=== PATIENT | female | born 1950 | race Caucasian/White ===

== ENCOUNTER 2017-06-23 07:17 | Day surgery (SDC) | payer MEDICARE ==
[2017-06-20 16:16] VITALS: BMI 56.7
[~2017-06-23 07:17] MED LIST: LACTATED RINGERS 1,000 ML IV SCH
[2017-06-23] MEDS ORDERED: LIDOCAINE 1% 20 ML VIAL (10MG/ML) FOR IV START INTRADERMA ONE (07:36)
[2017-06-23 07:51] VITALS: RESP 16; TEMP 96.9
[2017-06-23 07:54] LABS: Glucose,Whole Blood 87 mg/dL (75-99)
[2017-06-23] MEDS ORDERED: PROPOFOL 10 MG/ML 20 ML VIAL IV ONE (08:06)
[2017-06-23] MEDS ORDERED: LIDOCAINE 1% INJ 10MG/ML (20 ML MDV) ONE (08:06)
--- NOTE | 2017-06-23 08:34 | P.PCN ---
Date of Procedure: 06/23/17 Preoperative Diagnosis: Postoperative Diagnosis: Procedure(s) Performed: BRIEF HISTORY: Patient is a 67-year-old pleasant white female, scheduled for an elective colonoscopy as a part of evaluation of positive cologard testing recently and hence he scheduled for colonoscopy today. PROCEDURE PERFORMED: Colonoscopy with snare polypectomy. PREOPERATIVE DIAGNOSIS: Positive [place] guard testing. IV sedation per Anesthesia. PROCEDURE: After informed consent was obtained, the patient, was brought into the endoscopy unit. IV sedation was administered by Anesthesia under continuous monitoring. Digital rectal examination was normal. Initially the Olympus CF- 160 flexible video colonoscope was then inserted in the rectum, gradually advanced into the cecum with [id number] difficulty. Careful examination was performed as the scope was gradually being withdrawn. Ileocecal valve and the appendiceal orifice were visualized and appeared normal. Prep was excellent. In the base of the cecum there were 2 polyps measuring 5 mm and 1 m in size both of which were removed by snare polypectomy. Mucosa of the cecum, ascending colon, transverse colon, descending colon, sigmoid colon, appeared normal. In the rectosigmoid colon at 20 cm from the anal was there was a 2.5 cm pedunculated polyp that was removed by snare polypectomy. The rectum appeared normal. Retroflexion was performed in the rectum and no lesions were seen. The patient tolerated the procedure well. IMPRESSION: 5 mm and 1 m cecal polyp status post polypectomy 2.5 cm pedunculated recto sigmoid polyp status post snare polypectomy RECOMMENDATIONS: Findings of this examination were discussed with the patient as well as her family. She was advised to follow with the biopsy results. If the biopsy shows a tubular adenoma she can have a repeat colonoscopy in 3 years. Implants: Indications for Procedure: Operative Findings: Description of Procedure:
[2017-06-23 08:43] LABS: Glucose,Whole Blood 88 mg/dL (75-99)
[2017-06-23 09:01] VITALS: BP 137/77; PULSE 99
== END 2017-06-23 09:16 | disposition home or self-care (01) ==
LOC: ORWHC2ENDO 07:17
PROVIDERS: ATTEND Internal Medicine Gastroenterology
DX: D12.0 Benign neoplasm of cecum (principal); D12.7 Benign neoplasm of rectosigmoid junction; R19.5 Other fecal abnormalities; I10 Essential (primary) hypertension; I25.10 Atherosclerotic heart disease of native coronary artery without angina pectoris; F41.9 Anxiety disorder, unspecified; Z98.84 Bariatric surgery status; E66.01 Morbid (severe) obesity due to excess calories; Z79.82 Long term (current) use of aspirin; Z79.4 Long term (current) use of insulin; Z79.899 Other long term (current) drug therapy; Z87.891 Personal history of nicotine dependence
CPT/HCPCS: 88305; 45385; J2001; J2704

== ENCOUNTER 2019-07-25 14:06 | Inpatient (IN) | payer MEDICARE, OTHER ==
--- NOTE | 2019-07-25 14:51 | ED ---
Extremity Problem HPI - General Chief complaint: Extremity Problem,Nontraumatic Stated complaint: Leg swelling Time Seen by Provider: 07/25/19 14:12 Source: patient, EMS, RN notes reviewed, old records reviewed Mode of arrival: EMS Limitations: no limitations - History of Present Illness Initial comments: This is a 69-year-old female the ER for evaluation. Patient has a for evaluation of left lower Shorty pain swelling redness and erythema and warmth. Patient noticed only symptoms today. She denies shortness of breath low she states she does have some level shortness of breath especially with him. No chest pain. Patient is not on blood thinners that she knows of. No prior history of significant lower extremity cellulitis or DVT. She states she has had swelling of her lower extremity isn't does have consistent swelling of her lower extremity and a regular basis MD Complaint: extremity pain, extremity swelling, other (Lower extremity swelling erythema and pain) -: days(s) Location: left, lower extremity History of Same: No Radiation: proximal, distal Severity scale (1-10): 3 Quality: aching Consistency: constant Improves with: nothing Worsens with: nothing Associated Symptoms: denies other symptoms - Related Data Home Medications Medication Instructions Recorded Confirmed Aspirin [Adult Low Dose Aspirin EC] 81 mg PO DAILY 06/20/17 07/25/19 Ezetimibe [Zetia] 10 mg PO QAM 06/20/17 07/25/19 Insulin Regular, Human [humulin R 0 - 10 unit SQ HS PRN 06/20/17 07/25/19 U-500 Kwikpen] Insulin Regular, Human [humulin R 25 unit SQ QAM 06/20/17 07/25/19 U-500 Kwikpen] Losartan Potassium [Cozaar] 100 mg PO QAM 06/20/17 07/25/19 Medroxyprogesterone Acetate 2.5 mg PO QAM 06/20/17 07/25/19 [Provera] Metoprolol Succinate (ER) [Toprol 50 mg PO QAM 06/20/17 07/25/19 Xl] Rosuvastatin Calcium [Crestor] 40 mg PO QAM 06/20/17 07/25/19 Sertraline HCl [Zoloft] 50 mg PO HS 06/20/17 07/25/19 amLODIPine [Norvasc] 10 mg PO QAM 06/20/17 07/25/19 Allergies Allergy/AdvReac Type Severity Reaction Status Date / Time No Known Allergies Allergy Verified 07/25/19 14:51 Review of Systems ROS Statement: Those systems with pertinent positive or pertinent negative responses have been documented in the HPI. ROS Other: All systems not noted in ROS Statement are negative. Past Medical History Past Medical History: Chest Pain / Angina, Diabetes Mellitus, Hypertension Additional Past Medical History / Comment(s): HEMORRHOID, POSITIVE TEST FOR BLOOD IN STOOL., STATES DIFFICULTY WALKING DISTANCE, BACK PAIN. History of Any Multi-Drug Resistant Organisms: None Reported Past Surgical History: Bariatric Surgery, Heart Catheterization, Tonsillectomy Additional Past Surgical History / Comment(s): LAP BAND INSERTED AND REMOVED (SEPTIC), D & C'S, EXCESS SKIN ON ABDOMEN REMOVED -? PANNICULECTOMY. Past Anesthesia/Blood Transfusion Reactions: No Reported Reaction Past Psychological History: Anxiety Smoking Status: Former smoker Past Alcohol Use History: None Reported Past Drug Use History: None Reported - Past Family History Mother Family Medical History: No Reported History General Exam Limitations: no limitations General appearance: alert, in no apparent distress Head exam: Present: atraumatic, normocephalic, normal inspection Eye exam: Present: normal appearance, EOMI. Absent: scleral icterus, conjunctival injection, periorbital swelling ENT exam: Present: normal exam, mucous membranes moist Neck exam: Present: normal inspection. Absent: tenderness, meningismus, lymphadenopathy Respiratory exam: Present: normal lung sounds bilaterally. Absent: respiratory distress, wheezes, rales, rhonchi, stridor Cardiovascular Exam: Present: regular rate, normal rhythm, normal heart sounds. Absent: systolic murmur, diastolic murmur, rubs, gallop, clicks GI/Abdominal exam: Present: soft, normal bowel sounds. Absent: distended, tenderness, guarding, rebound, rigid Extremities exam: Present: normal inspection, full ROM, normal capillary refill, other (Left lower extremity shows significant swelling, erythema warmth and tenderness especially to the cath). Absent: tenderness, pedal edema, joint swelling, calf tenderness Back exam: Present: normal inspection Neurological exam: Present: alert, oriented X3, CN II-XII intact Psychiatric exam: Present: normal affect, normal mood Skin exam: Present: warm, dry, intact, normal color. Absent: rash Course Vital Signs 07/25/19 14:12 Temperature 98.2 F Pulse Rate 101 H Respiratory 18 Rate Blood Pressure 157/78 O2 Sat by Pulse 97 Oximetry - Reevaluation(s) Reevaluation #1: 07/25/19 14:51 Medical records reviewed Reevaluation #2: 07/25/19 16:22 Patient's symptoms are relatively unchanged - Consultations Consultation #1: Spoke with Dr. Llanes who is agreeable for admission Medical Decision Making - Medical Decision Making 89 female the ER for evasive left lower Shorty pain and swelling. Patient has leg cellulitis left lower extremity sialitis that leg white count of 18, will admit for IV antibiotics - Lab Data Result diagrams: 07/25/19 13:05 07/25/19 13:05 Lab Results 07/25/19 07/25/19 07/25/19 Range/Units 13:05 13:05 13:05 WBC 18.2 H (3.8-10.6) k/uL RBC 4.35 (3.80-5.40) m/uL Hgb 13.4 (11.4-16.0) gm/dL Hct 39.4 (34.0-46.0) % MCV 90.4 (80.0-100.0) fL MCH 30.7 (25.0-35.0) pg MCHC 34.0 (31.0-37.0) g/dL RDW 13.8 (11.5-15.5) % Plt Count 191 (150-450) k/uL Neutrophils % 94 % Lymphocytes % 2 % Monocytes % 2 % Eosinophils % 0 % Basophils % 0 % Neutrophils # 17.2 H (1.3-7.7) k/uL Lymphocytes # 0.4 L (1.0-4.8) k/uL Monocytes # 0.4 (0-1.0) k/uL Eosinophils # 0.1 (0-0.7) k/uL Basophils # 0.0 (0-0.2) k/uL PT 11.3 (9.0-12.0) sec INR 1.1 (<1.2) APTT 30.7 H (22.0-30.0) sec D-Dimer 1.45 H (<0.60) mg/L FEU Sodium 135 L (137-145) mmol/L Potassium 3.9 (3.5-5.1) mmol/L Chloride 102 (98-107) mmol/L Carbon Dioxide 22 (22-30) mmol/L Anion Gap 11 mmol/L BUN 24 H (7-17) mg/dL Creatinine 1.16 H (0.52-1.04) mg/dL Est GFR (CKD-EPI)AfAm 56 (>60 ml/min/1.73 sqM) Est GFR (CKD-EPI)NonAf 48 (>60 ml/min/1.73 sqM) Glucose 374 H (74-99) mg/dL Calcium 9.3 (8.4-10.2) mg/dL Magnesium 1.8 (1.6-2.3) mg/dL Total Bilirubin 1.3 (0.2-1.3) mg/dL AST 44 H (14-36) U/L ALT 32 (9-52) U/L Alkaline Phosphatase 76 (38-126) U/L Troponin I (0.000-0.034) ng/mL NT-Pro-B Natriuret Pep pg/mL Total Protein 6.1 L (6.3-8.2) g/dL Albumin 3.1 L (3.5-5.0) g/dL 07/25/19 07/25/19 Range/Units 13:05 13:05 WBC (3.8-10.6) k/uL RBC (3.80-5.40) m/uL Hgb (11.4-16.0) gm/dL Hct (34.0-46.0) % MCV (80.0-100.0) fL MCH (25.0-35.0) pg MCHC (31.0-37.0) g/dL RDW (11.5-15.5) % Plt Count (150-450) k/uL Neutrophils % % Lymphocytes % % Monocytes % % Eosinophils % % Basophils % % Neutrophils # (1.3-7.7) k/uL Lymphocytes # (1.0-4.8) k/uL Monocytes # (0-1.0) k/uL Eosinophils # (0-0.7) k/uL Basophils # (0-0.2) k/uL PT (9.0-12.0) sec INR (<1.2) APTT (22.0-30.0) sec D-Dimer (<0.60) mg/L FEU Sodium (137-145) mmol/L Potassium (3.5-5.1) mmol/L Chloride (98-107) mmol/L Carbon Dioxide (22-30) mmol/L Anion Gap mmol/L BUN (7-17) mg/dL Creatinine (0.52-1.04) mg/dL Est GFR (CKD-EPI)AfAm (>60 ml/min/1.73 sqM) Est GFR (CKD-EPI)NonAf (>60 ml/min/1.73 sqM) Glucose (74-99) mg/dL Calcium (8.4-10.2) mg/dL Magnesium (1.6-2.3) mg/dL Total Bilirubin (0.2-1.3) mg/dL AST (14-36) U/L ALT (9-52) U/L Alkaline Phosphatase (38-126) U/L Troponin I 0.033 (0.000-0.034) ng/mL NT-Pro-B Natriuret Pep 933 pg/mL Total Protein (6.3-8.2) g/dL Albumin (3.5-5.0) g/dL - EKG Data -: EKG Interpreted by Me (EKG shows sinus rhythm rate of 90, MS 136, QRS 110, QTc 472) - Radiology Data Radiology results: report reviewed (S x-ray negative for CHF of lower extremity ultrasound negative for DVT), image reviewed Disposition Clinical Impression: Left leg cellulitis Disposition: ADMITTED IP TO THIS HOSP Condition: Fair Is patient prescribed a controlled substance at d/c from ED?: No Referrals: Gregoria Llanes MD [Primary Care Provider] - 1-2 days
[2019-07-25 15:02] LABS: Basophils % (A) 0 %; Eosinophils # (A) 0.1 k/uL (0-0.7); Eosinophils % (A) 0 %; HCT 39.4 % (34.0-46.0); HGB 13.4 gm/dL (11.4-16.0); Lymphocytes # (A) 0.4 k/uL (1.0-4.8); Lymphocytes % (A) 2 %; MCH 30.7 pg (25.0-35.0); MCV 90.4 fL (80.0-100.0); Mean Platelet Volume 6.7; Monocytes # (A) 0.4 k/uL (0-1.0); Monocytes % (A) 2 %; Neutrophils # (A) 17.2 k/uL (1.3-7.7); Neutrophils % (A) 94 %; Platelet Count 191 k/uL (150-450); RBC 4.35 m/uL (3.80-5.40); RDW 13.8 % (11.5-15.5); WBC 18.2 k/uL (3.8-10.6)
[2019-07-25 15:13] LABS: INR 1.1 (<1.2); Partial Thromboplastin Time 30.7 sec (22.0-30.0); Prothrombin Time 11.3 sec (9.0-12.0)
[2019-07-25 15:16] LABS: Albumin 3.1 g/dL (3.5-5.0); Calcium 9.3 mg/dL (8.4-10.2); Magnesium 1.8 mg/dL (1.6-2.3); Potassium 3.9 mmol/L (3.5-5.1); Total Bilirubin 1.3 mg/dL (0.2-1.3); Total Protein 6.1 g/dL (6.3-8.2)
[2019-07-25 15:21] LABS: D-Dimer 1.45 mg/L FEU (<0.60)
--- NOTE | 2019-07-25 16:02 | XR ---
EXAMINATION TYPE: XR chest 2V DATE OF EXAM: 07/25/2019 COMPARISON: 10/27/2010 INDICATION: Difficulty breathing TECHNIQUE: Frontal and lateral views of the chest are obtained. FINDINGS: The heart size is normal. The pulmonary vasculature is normal. The lungs are clear. IMPRESSION: 1. No acute pulmonary process.
--- NOTE | 2019-07-25 16:04 | US ---
EXAMINATION TYPE: US venous doppler duplex LE LT DATE OF EXAM: 07/25/2019 3:48 PM COMPARISON: NONE CLINICAL HISTORY: pain. swollen, red lower left leg on morbidly obese patient, no h/o dvt SIDE PERFORMED: Left TECHNIQUE: The lower extremity deep venous system is examined utilizing real time linear array sonog afsaneh with graded compression, doppler sonography and color-flow sonography. VESSELS IMAGED: External Iliac Vein (EIV) Common Femoral Vein Deep Femoral Vein Greater Saphenous Vein * Femoral Vein Popliteal Vein Small Saphenous Vein * Proximal Calf Veins (* superficial vessels) large body habitus and very edematous tissue limits viewing of vessels within left groin Left Leg: very limited views of veins within left leg appear negative for DVT, vein visualized were mid and distal femoral vein as well as popiteal vein IMPRESSION: 1. Left lower extremity ultrasound negative for deep venous thrombosis. 2. Examination limited due to patient body habitus
[2019-07-25] MEDS ORDERED: VANCOMYCIN IV PER PHARMACY 1 EACH MISC MISCELLANE PRN (16:21)
[2019-07-25] MEDS ORDERED: VANCOMYCIN 2,000 MG in SODIUM CHLORIDE 0.9% 500 ML 500 ML IVPB ONE (17:00)
[2019-07-25] MEDS: MORPHINE SULFATE 4 MG/ML SYRINGE IVP PRN (17:07)
--- NOTE | 2019-07-25 18:06 | CT ---
EXAMINATION TYPE: CT angio chest DATE OF EXAM: 07/25/2019 5:47 PM COMPARISON: Elevated d-dimer. HISTORY: Elevated d-dimer. Lower extremity swelling. CT DLP: 901.6 mGycm Automated exposure control for dose reduction was used. CONTRAST: CTA scan of the thorax is performed with IV Contrast, patient injected with 80 mL of Isovue 300, pulm onary embolism protocol. . There are 3-D post processed images. FINDINGS: There is mild subsegmental atelectasis at the lung bases. There is no pulmonary mass. There is no ple ural effusion. Heart appears slightly enlarged. There is no pericardial effusion. There are no hilar masses. There is no mediastinal adenopathy. Thoracic aorta is intact without evide nce of aneurysm or dissection. There is normal contrast opacification of the pulmonary arteries. I see no filling defects. The bony thorax is intact. There is spurring in the thoracic spine. IMPRESSION: NO EVIDENCE OF PULMONARY EMBOLISM. MILD SUBSEGMENTAL ATELECTASIS AT THE LUNG BASES.
[2019-07-25 18:18] LABS: Glucose,Whole Blood 364 mg/dL (75-99)
[2019-07-25] MEDS: INSULIN ASPART (NovoLOG) 100 UNIT/ML VIAL SQ SCH ×2 (18:26→20:56)
[2019-07-25 20:34] LABS: Glucose,Whole Blood 362 mg/dL (75-99)
[2019-07-25] MEDS: SERTRALINE 50 MG TAB PO SCH (20:53)
--- NOTE | 2019-07-25 22:54 | HP ---
HISTORY AND PHYSICAL CHIEF COMPLAINT: This is a 69-year-old white female who came to the emergency room with severe lower extremity pain, swelling, redness, erythema and warmth of the left leg over the past 1- 2 days. Ultrasound in the ER was negative for DVT. Positive D-dimer. CT scan of the chest was negative for PE. History of congestive heart failure. No bites or skin wounds seen on the left leg per patient. No cuts. She is diabetic, though. Sugars are coming in. Her sugars in the 300s. History of congestive heart failure. HOME MEDICATIONS: 1. Norvasc 10 mg daily. 2. Zoloft 50 daily. 3. Crestor 40 daily. 4. Metoprolol succinate 50 mg daily. 5. Provera 2.5 each morning. 6. Cozaar 100 mg each morning. 7. Aspirin 81 mg daily. 8. Humulin R U-500 KwikPen 0 to 10 units at night and, depending on her sugar level, 25 units in the morning. ALLERGIES: NO KNOWN DRUG ALLERGIES. PAST MEDICAL HISTORY: Some anxiety. Former smoker. FAMILY HISTORY: Mother unclear. PHYSICAL EXAMINATION: Vital signs stable. Afebrile. BMI is over 40. She has lymphedema-type changes in the lower extremities with significant redness and swelling in the left lower leg. CARDIOVASCULAR: S1, S2. LUNGS: Transmitted upper airway sounds. VASCULAR: Normal dorsalis, posterior tibial, radial pulse. PSYCH: Fair mood and affect. NEUROLOGIC: Alert and oriented x3. Lungs show mild wheeze. ASSESSMENT: 1. Left leg cellulitis, significant. Started on IV cefazolin, wound care, localized antibiotics. 2. Elevated white count secondary to leukocytosis. 3. Prerenal renal insufficiency. 4. Congestive heart failure. 5. Insulin-dependent diabetes mellitus. Continue current treatment. Possible discharge home once leg cellulitis improves. Infectious disease consult. MMODL / IJN: [id number] /
[2019-07-26 06:03] LABS: Basophils # (A) 0.1 k/uL (0-0.2); Basophils % (A) 1 %; Eosinophils # (A) 0.1 k/uL (0-0.7); Eosinophils % (A) 1 %; HCT 37.2 % (34.0-46.0); HGB 12.6 gm/dL (11.4-16.0); Lymphocytes # (A) 0.5 k/uL (1.0-4.8); Lymphocytes % (A) 3 %; MCH 31.3 pg (25.0-35.0); MCHC 33.9 g/dL (31.0-37.0); MCV 92.2 fL (80.0-100.0); Mean Platelet Volume 8.1; Monocytes # (A) 0.7 k/uL (0-1.0); Monocytes % (A) 4 %; Neutrophils # (A) 14.5 k/uL (1.3-7.7); Neutrophils % (A) 90 %; Platelet Count 189 k/uL (150-450); RBC 4.04 m/uL (3.80-5.40); RDW 14.1 % (11.5-15.5); WBC 16.1 k/uL (3.8-10.6)
[2019-07-26 06:13] LABS: Albumin 2.8 g/dL (3.5-5.0); Calcium 9.1 mg/dL (8.4-10.2); Potassium 3.9 mmol/L (3.5-5.1); Total Bilirubin 0.8 mg/dL (0.2-1.3); Total Protein 5.7 g/dL (6.3-8.2)
[2019-07-26 07:07] LABS: Glucose,Whole Blood 261 mg/dL (75-99)
[2019-07-26] MEDS: ASPIRIN 81 MG PO SCH (08:01)
[2019-07-26] MEDS: METOPROLOL SUCCINATE (ER) 50 MG TAB.ER.24H PO SCH (08:01)
[2019-07-26] MEDS: ENOXAPARIN 40 MG/0.4 ML SYRINGE SQ SCH (08:01)
[2019-07-26] MEDS: LOSARTAN 50 MG TAB PO SCH (08:01)
[2019-07-26] MEDS: amLODIPine 10 MG TAB PO SCH (08:01)
[2019-07-26] MEDS: ATORVASTATIN 80 MG TAB PO SCH (08:01)
[2019-07-26] MEDS: INSULIN ASPART (NovoLOG) 100 UNIT/ML VIAL SQ SCH ×4 (08:02→21:16)
[2019-07-26] MEDS: EZETIMIBE 10 MG TAB PO SCH (08:02)
[2019-07-26] MEDS: INSULIN REGULAR 100 UNIT/ML VIAL SQ SCH (08:03)
[2019-07-26 11:56] LABS: Glucose,Whole Blood 288 mg/dL (75-99)
[2019-07-26] MEDS ORDERED: VANCOMYCIN 2,000 MG in SODIUM CHLORIDE 0.9% 500 ML 500 ML IVPB SCH (12:00)
[2019-07-26 14:16] LABS: Hemoglobin A1C 6.6 % (4.0-6.0)
--- NOTE | 2019-07-26 15:48 | P.CONS ---
History of Present Illness - Reason for Consult Consult date: 07/26/19 Left leg cellulitis Requesting physician: Azeem Llanes - Chief Complaint Left leg pain swelling and redness 2 days - History of Present Illness Patient is 69-year-old female presenting to the ER at [facility] yesterday with a chief complaints of left leg pain swelling redness that has been going on for 2 days before the patient presented to the hospital the patient did have diffuse swelling and redness to the left lower extremity, patient describing the pain to be sharp at times dull aching with intensity of almost 7-8 out of 10 and no radiation the patient did have a diffuse redness but no blister or any open wound with the symptom and the patient was evaluated by the ER physician, on route to the ER the patient was afebrile however she did have elevated white count of 18,000 the patient did have lower extremity Doppler was negative for DVT she also have a CT angiographic there was negative for PE patient has been diagnosed with left lower extremity cellulitis the patient was started on vancomycin and Rocephin and infectious disease was consulted for further recommendation regarding antibiotic therapy Review of Systems Positive point has been mentioned in the HPI rest of the systems are negative Past Medical History Past Medical History: Chest Pain / Angina, Diabetes Mellitus, Hypertension Additional Past Medical History / Comment(s): HEMORRHOID, POSITIVE TEST FOR BLOOD IN STOOL., STATES DIFFICULTY WALKING DISTANCE, BACK PAIN. History of Any Multi-Drug Resistant Organisms: None Reported Past Surgical History: Bariatric Surgery, Heart Catheterization, Tonsillectomy Additional Past Surgical History / Comment(s): LAP BAND INSERTED AND REMOVED (SEPTIC), D & C'S, EXCESS SKIN ON ABDOMEN REMOVED -? PANNICULECTOMY. Past Anesthesia/Blood Transfusion Reactions: No Reported Reaction Past Psychological History: Anxiety Smoking Status: Former smoker Past Alcohol Use History: None Reported Additional Past Alcohol Use History / Comment(s): SMOKED 2 YEARS IN EARLY 20S Past Drug Use History: None Reported - Past Family History Mother Family Medical History: No Reported History Medications and Allergies Home Medications Medication Instructions Recorded Confirmed Type Aspirin [Adult Low Dose Aspirin EC] 81 mg PO DAILY 06/20/17 07/25/19 History Ezetimibe [Zetia] 10 mg PO QAM 06/20/17 07/25/19 History Insulin Regular, Human [humulin R 0 - 10 unit SQ HS PRN 06/20/17 07/25/19 History U-500 Kwikpen] Insulin Regular, Human [humulin R 25 unit SQ QAM 06/20/17 07/25/19 History U-500 Kwikpen] Losartan Potassium [Cozaar] 100 mg PO QAM 06/20/17 07/25/19 History Medroxyprogesterone Acetate 2.5 mg PO QAM 06/20/17 07/25/19 History [Provera] Metoprolol Succinate (ER) [Toprol 50 mg PO QAM 06/20/17 07/25/19 History Xl] Rosuvastatin Calcium [Crestor] 40 mg PO QAM 06/20/17 07/25/19 History Sertraline HCl [Zoloft] 50 mg PO HS 06/20/17 07/25/19 History amLODIPine [Norvasc] 10 mg PO QAM 06/20/17 07/25/19 History Allergies Allergy/AdvReac Type Severity Reaction Status Date / Time No Known Allergies Allergy Verified 07/25/19 14:51 Physical Exam Vitals: Vital Signs Temp Pulse Pulse Resp BP BP Pulse Ox 07/26/19 07:10 98.2 F 92 18 116/68 91 L 07/25/19 21:00 98.5 F 98 20 137/66 92 L 07/25/19 18:00 98.1 F 108 H 20 149/76 94 L 07/25/19 14:12 98.2 F 101 H 18 157/78 97 Intake and Output 07/25/19 07/26/19 07/26/19 22:59 06:59 14:59 Intake Total 400 250 Balance 400 250 Intake: Oral 400 250 Other: Voiding Method Bedpan # Voids 2 1 GENERAL DESCRIPTION: An elderly female lying in bed, no distress. No tachypnea or accessory muscle of respiration use. HEENT: Shows Pallor , no scleral icterus. Oral mucous membrane is dry. No pharyngeal erythema or thrush NECK: Trachea central, no thyromegaly. LUNGS: Unlabored breathing. Clear to auscultation anteriorly. No wheeze or crack le. HEART: S1, S2, regular rate and rhythm. No loud murmur ABDOMEN: Soft, no tenderness , guarding or rigidity, no organomegaly EXTREMITIES: Left leg with diffuse swelling redness is warm and tender to touch no blistering open wound or any drainage SKIN: No rash, no masses palpable. NEUROLOGICAL: The patient is awake, alert, oriented x3, mood and affect normal. Results CBC & Chem 7: 07/26/19 05:24 07/26/19 05:24 Labs: Abnormal Lab Results - Last 24 Hours (Table) 07/25/19 07/25/19 07/25/19 Range/Units 13:05 13:05 13:05 WBC 18.2 H (3.8-10.6) k/uL Neutrophils # 17.2 H (1.3-7.7) k/uL Lymphocytes # 0.4 L (1.0-4.8) k/uL APTT 30.7 H (22.0-30.0) sec D-Dimer 1.45 H (<0.60) mg/L FEU Sodium 135 L (137-145) mmol/L BUN 24 H (7-17) mg/dL Creatinine 1.16 H (0.52-1.04) mg/dL Glucose 374 H (74-99) mg/dL POC Glucose (mg/dL) (75-99) mg/dL AST 44 H (14-36) U/L Total Protein 6.1 L (6.3-8.2) g/dL Albumin 3.1 L (3.5-5.0) g/dL 07/25/19 07/25/19 07/26/19 Range/Units 18:16 20:30 05:24 WBC 16.1 H (3.8-10.6) k/uL Neutrophils # 14.5 H (1.3-7.7) k/uL Lymphocytes # 0.5 L (1.0-4.8) k/uL APTT (22.0-30.0) sec D-Dimer (<0.60) mg/L FEU Sodium (137-145) mmol/L BUN (7-17) mg/dL Creatinine (0.52-1.04) mg/dL Glucose (74-99) mg/dL POC Glucose (mg/dL) 364 H 362 H (75-99) mg/dL AST (14-36) U/L Total Protein (6.3-8.2) g/dL Albumin (3.5-5.0) g/dL 0907/26/19 07/26/19 Range/Units 05:24 07:04 11:51 WBC (3.8-10.6) k/uL Neutrophils # (1.3-7.7) k/uL Lymphocytes # (1.0-4.8) k/uL APTT (22.0-30.0) sec D-Dimer (<0.60) mg/L FEU Sodium 135 L (137-145) mmol/L BUN 27 H (7-17) mg/dL Creatinine 1.30 H (0.52-1.04) mg/dL Glucose 270 H (74-99) mg/dL POC Glucose (mg/dL) 261 H 288 H (75-99) mg/dL AST 41 H (14-36) U/L Total Protein 5.7 L (6.3-8.2) g/dL Albumin 2.8 L (3.5-5.0) g/dL Assessment and Plan Assessment: 1-patient admitted hospital with acute left lower extremity cellulitis in this patient did have diffuse swelling redness likely representing streptococcal disease clinically doubt MRSA or gram-negative infection (1) Left leg cellulitis Current Visit: Yes Status: Acute Code(s): L03.116 - CELLULITIS OF LEFT LOWER LIMB SNOMED Code(s): 173171916 Plan: 1-discontinue the vancomycin and Rocephin 2-marked the area of the redness 3-cefazolin 2 g every 8 hours 4-Jose wrap from just above the toe to below the knee We will follow on clinical condition and cultures to further adjust medication if needed Thank you for this consultation will follow this patient with you Time with Patient: Greater than 30
[2019-07-26 17:08] LABS: Glucose,Whole Blood 216 mg/dL (75-99)
[2019-07-26] MEDS: MORPHINE SULFATE 4 MG/ML SYRINGE IVP PRN (19:27)
[2019-07-26 20:20] LABS: Glucose,Whole Blood 287 mg/dL (75-99)
[2019-07-26] MEDS: SERTRALINE 50 MG TAB PO SCH (21:16)
--- NOTE | 2019-07-26 22:52 | PN ---
PROGRESS NOTE SUBJECTIVE: This is a 69-year-old white female with cellulitis of the leg, admitted with IV antibiotics. Continues to improve from a clinical standpoint. No chest pain or shortness of breath. No lightheadedness, dizziness, syncope. CARDIOVASCULAR: S1, S2. LUNGS: Clear. LYMPHATIC: Changes with the redness decreasing on the right lower leg. ASSESSMENT: Left leg cellulitis. Cefazolin 2 grams q.8 hours. Continue with Jose wrap from the toe to the knee. Continue to follow clinical condition and blood cultures. MMODL / IJN: [id number] /
[2019-07-27] MEDS ORDERED: IPRATROPIUM-ALBUTEROL 3 ML NEB INHALATION STA (00:39)
[2019-07-27] MEDS ORDERED: FUROSEMIDE 10 MG/ML 4 ML VIAL IV STA (00:39)
[2019-07-27 06:47] LABS: Glucose,Whole Blood 223 mg/dL (75-99)
[2019-07-27 06:54] LABS: Basophils % (A) 0 %; Eosinophils # (A) 0.2 k/uL (0-0.7); Eosinophils % (A) 2 %; HCT 35.5 % (34.0-46.0); HGB 11.9 gm/dL (11.4-16.0); Lymphocytes # (A) 0.8 k/uL (1.0-4.8); Lymphocytes % (A) 5 %; MCH 30.4 pg (25.0-35.0); MCHC 33.6 g/dL (31.0-37.0); MCV 90.3 fL (80.0-100.0); Monocytes # (A) 0.5 k/uL (0-1.0); Monocytes % (A) 3 %; Neutrophils % (A) 89 %; Platelet Count 190 k/uL (150-450); RBC 3.93 m/uL (3.80-5.40); RDW 13.7 % (11.5-15.5); WBC 15.8 k/uL (3.8-10.6)
[2019-07-27 07:03] LABS: Albumin 2.6 g/dL (3.5-5.0); Calcium 8.9 mg/dL (8.4-10.2); Potassium 3.6 mmol/L (3.5-5.1); Total Bilirubin 0.7 mg/dL (0.2-1.3); Total Protein 5.5 g/dL (6.3-8.2)
[2019-07-27] MEDS: INSULIN ASPART (NovoLOG) 100 UNIT/ML VIAL SQ SCH ×6 (07:54→22:09)
[2019-07-27] MEDS: ASPIRIN 81 MG PO SCH (08:23)
[2019-07-27] MEDS: amLODIPine 10 MG TAB PO SCH (08:23)
[2019-07-27] MEDS: ENOXAPARIN 40 MG/0.4 ML SYRINGE SQ SCH (08:23)
[2019-07-27] MEDS: METOPROLOL SUCCINATE (ER) 50 MG TAB.ER.24H PO SCH (08:28)
[2019-07-27] MEDS: ATORVASTATIN 80 MG TAB PO SCH (08:28)
[2019-07-27] MEDS: INSULIN REGULAR 100 UNIT/ML VIAL SQ SCH (08:29)
[2019-07-27] MEDS: LOSARTAN 50 MG TAB PO SCH (08:29)
--- NOTE | 2019-07-27 09:21 | XR ---
EXAMINATION TYPE: XR chest 1V DATE OF EXAM: 07/27/2019 HISTORY: shortness of breath. REFERENCE: Previous study dated 07/25/2019. FINDINGS: The lungs remain clear. Pleural spaces are clear. Heart size is upper limits of normal in s ize. IMPRESSION: BORDERLINE CARDIOMEGALY.
[2019-07-27] MEDS: IPRATROPIUM-ALBUTEROL 3 ML NEB INHALATION SCH ×3 (10:41→19:57)
[2019-07-27] MEDS: EZETIMIBE 10 MG TAB PO SCH (10:54)
[2019-07-27] MEDS: methylPREDNISolone SOD SUCCI 40 MG/ML 1 ML VIAL IV SCH ×2 (10:54→16:02)
[2019-07-27] MEDS: AZITHROMYCIN 500 MG in SODIUM CHLORIDE 0.9% 250 ML IVPB SCH (10:57)
[2019-07-27 11:38] LABS: Glucose,Whole Blood 356 mg/dL (75-99)
--- NOTE | 2019-07-27 16:25 | PN ---
PROGRESS NOTE DATE OF SERVICE: 07/27/2019 REASON FOR FOLLOWUP: Left lower extremity cellulitis. INTERVAL HISTORY: The patient is currently afebrile. The patient has been breathing comfortably. She denies having any chest pain or any cough. Some swelling and redness to the left leg has improved. No diarrhea. PHYSICAL EXAMINATION: Blood pressure is 138/66, pulse 85, temperature 98.2. She is 95% on 2 L nasal cannula. General description is an elderly female lying in bed in no distress. RESPIRATORY SYSTEM: Unlabored breathing. Clear to auscultation anteriorly. HEART: S1, S2. Regular rate and rhythm. ABDOMEN: Soft. No tenderness. Left lower extremity swelling and redness minimally improved. LABS: Hemoglobin 11.1, white count 15.8. BUN of 26, creatinine 1.18. DIAGNOSTIC IMPRESSION AND PLAN: Patient with extensive left lower extremity cellulitis, some clinical improvement. White count is slightly down. To continue cefazolin 2 grams q.8 hours. Billy the area of the redness. Jose wrap to keep the swelling down. Continue with supportive care. MMODL / IJN: [id number] /
[2019-07-27 16:35] LABS: Glucose,Whole Blood 406 mg/dL (75-99)
[2019-07-27] MEDS ORDERED: INSULIN ASPART (NovoLOG) 100 UNIT/ML VIAL SQ ONE (17:04)
[2019-07-27 21:10] LABS: Glucose,Whole Blood 478 mg/dL (75-99)
[2019-07-27] MEDS: SERTRALINE 50 MG TAB PO SCH (22:08)
[2019-07-28] MEDS: methylPREDNISolone SOD SUCCI 40 MG/ML 1 ML VIAL IV SCH ×2 (00:29→07:45)
--- NOTE | 2019-07-28 00:50 | PN ---
PROGRESS NOTE SUBJECTIVE: 69-year-old white female who has worsening shortness of breath today despite the Lasix, steroids and updraft. Pulmonary consult is pending. Chest x-ray is negative. Cardiovascular S1, S2. Lungs scattered rhonchi and wheeze. Hematology: Negative Homans. Vascular: Normal dorsalis pedis, posterior tibial, radial pulse. ASSESSMENT: 1. Left lower leg extremity cellulitis. 2. Insulin-dependent diabetes mellitus. 3. Chronic obstructive pulmonary disease. 4. Tracheobronchitis. Continue current treatments. Possible discharge home soon. MMODL / IJN: [id number] /
[2019-07-28 07:08] LABS: Glucose,Whole Blood 409 mg/dL (75-99)
[2019-07-28] MEDS: INSULIN ASPART (NovoLOG) 100 UNIT/ML VIAL SQ SCH ×7 (07:40→21:02)
[2019-07-28] MEDS: ENOXAPARIN 40 MG/0.4 ML SYRINGE SQ SCH (07:51)
[2019-07-28] MEDS: amLODIPine 10 MG TAB PO SCH (07:51)
[2019-07-28] MEDS: LOSARTAN 50 MG TAB PO SCH (07:51)
[2019-07-28] MEDS: ASPIRIN 81 MG PO SCH (07:51)
[2019-07-28] MEDS: EZETIMIBE 10 MG TAB PO SCH (07:51)
[2019-07-28] MEDS: ATORVASTATIN 80 MG TAB PO SCH (07:51)
[2019-07-28] MEDS: INSULIN REGULAR 100 UNIT/ML VIAL SQ SCH (07:54)
[2019-07-28] MEDS: IPRATROPIUM-ALBUTEROL 3 ML NEB INHALATION SCH ×4 (08:44→19:50)
[2019-07-28] MEDS: AZITHROMYCIN 500 MG in SODIUM CHLORIDE 0.9% 250 ML IVPB SCH (09:25)
[2019-07-28] MEDS: METOPROLOL SUCCINATE (ER) 50 MG TAB.ER.24H PO SCH (09:29)
[2019-07-28] MEDS: MORPHINE SULFATE 4 MG/ML SYRINGE IVP PRN (11:27)
[2019-07-28 11:57] LABS: Glucose,Whole Blood 436 mg/dL (75-99)
[2019-07-28 17:35] LABS: Glucose,Whole Blood 437 mg/dL (75-99)
[2019-07-28] MEDS ORDERED: INSULIN REGULAR 100 UNIT/ML VIAL SQ ONE ×2 (17:43→20:56)
[2019-07-28] MEDS: SERTRALINE 50 MG TAB PO SCH (21:03)
[2019-07-29 06:55] LABS: Basophils % (A) 0 %; Eosinophils % (A) 0 %; HGB 12.1 gm/dL (11.4-16.0); Hypochromasia Slight; Lymphocytes # (A) 0.5 k/uL (1.0-4.8); Lymphocytes % (A) 3 %; MCH 30.2 pg (25.0-35.0); MCHC 32.8 g/dL (31.0-37.0); Mean Platelet Volume 7.1; Monocytes # (A) 0.7 k/uL (0-1.0); Monocytes % (A) 3 %; Neutrophils # (A) 18.8 k/uL (1.3-7.7); Neutrophils % (A) 93 %; Platelet Count 262 k/uL (150-450); RBC 4.02 m/uL (3.80-5.40); RDW 13.3 % (11.5-15.5); WBC 20.2 k/uL (3.8-10.6)
[2019-07-29 07:04] LABS: Calcium 9.3 mg/dL (8.4-10.2); Potassium 4.4 mmol/L (3.5-5.1)
[2019-07-29 07:32] LABS: Glucose,Whole Blood 405 mg/dL (75-99)
[2019-07-29] MEDS: INSULIN ASPART (NovoLOG) 100 UNIT/ML VIAL SQ SCH ×7 (07:35→20:43)
--- NOTE | 2019-07-29 07:55 | PN ---
PROGRESS NOTE DATE OF SERVICE: 07/28/2019 REASON FOR FOLLOWUP: Left lower extremity cellulitis. INTERVAL HISTORY: The patient is currently afebrile. The patient has been breathing comfortably. Denies having any chest pain or any cough. No nausea, no vomiting. No abdominal pain or any worsening pain to the left leg area. PHYSICAL EXAMINATION: Blood pressure 137/70 with a pulse of 77, temperature 97.6. She is 94% 2 L nasal cannula. General description is an elderly female, lying in bed in no distress. RESPIRATORY SYSTEM: Unlabored breathing, clear to auscultation anteriorly. HEART: S1, S2. Regular rate and rhythm. ABDOMEN: Soft, no tenders. EXTREMITIES: Left leg is currently wrapped up in the Jose wrap without any drainage on the dressing. LABS: No new labs been obtained today. Blood culture has been negative. DIAGNOSTIC IMPRESSION AND PLAN: Patient with acute left lower extremity cellulitis and the patient did have diffuse swelling redness, likely streptococcal disease. Recommend to keep the patient on IV cefazolin 2 g q.8 hours. Repeat CBC in the morning. Local care with an Jose wrap to keep the swelling down and re-evaluate the patient tomorrow. MMODL / IJN: [id number] /
[2019-07-29] MEDS: IPRATROPIUM-ALBUTEROL 3 ML NEB INHALATION SCH ×4 (08:20→20:36)
[2019-07-29] MEDS: AZITHROMYCIN 500 MG in SODIUM CHLORIDE 0.9% 250 ML IVPB SCH (08:49)
[2019-07-29] MEDS: ASPIRIN 81 MG PO SCH (08:50)
[2019-07-29] MEDS: ATORVASTATIN 80 MG TAB PO SCH (08:50)
[2019-07-29] MEDS: LOSARTAN 50 MG TAB PO SCH (08:50)
[2019-07-29] MEDS: METOPROLOL SUCCINATE (ER) 50 MG TAB.ER.24H PO SCH (08:50)
[2019-07-29] MEDS: ENOXAPARIN 40 MG/0.4 ML SYRINGE SQ SCH (08:51)
[2019-07-29] MEDS: amLODIPine 10 MG TAB PO SCH (08:51)
[2019-07-29] MEDS: INSULIN REGULAR 100 UNIT/ML VIAL SQ SCH (08:51)
[2019-07-29] MEDS: EZETIMIBE 10 MG TAB PO SCH (08:51)
[2019-07-29 09:21] LABS: Glucose,Whole Blood 439 mg/dL (75-99)
[2019-07-29 09:21] LABS: Glucose,Whole Blood 501 mg/dL (75-99)
[2019-07-29 09:21] LABS: Glucose,Whole Blood 427 mg/dL (75-99)
[2019-07-29 09:21] LABS: Glucose,Whole Blood 467 mg/dL (75-99)
[2019-07-29 11:56] LABS: Glucose,Whole Blood 382 mg/dL (75-99)
--- NOTE | 2019-07-29 14:33 | P.CNPUL ---
History of Present Illness Consult date: 07/29/19 Reason for consult: dyspnea, cough, hypoxemia, abnormal CXR/CT, obstructive sleep apnea Chief complaint: Shortness of breath and wheezing History of present illness: This is a 69-year-old female who was seen eval reexamined on medical floor admitted into the hospital left lower extremity DVT computed tomography scan of his chest shows some subsegmental atelectasis she has problem with intermittent wheezing cough and congestion for which she has been on oral antibiotics and as aged breathing treatment she feels better from respiratory standpoint extensive lower extremity left cellulitis is present she is being treated with IV cefazolin, review of the data revealed that left leg pain swelling redness that has been going on for 2 days before the patient presented to the hospital the patient did have diffuse swelling and redness to the left lower extremity, patient describing the pain to be sharp at times dull aching with intensity of almost 7-8 out of 10 and no radiation the patient did have a diffuse redness but no blister or any open wound with the symptom and the patient was evaluated by the ER physician, on route to the ER the patient was afebrile however she did have elevated white count of 18,000 the patient did have lower extremity Doppler was negative for DVT she also have a CT angiographic there was negative for PE she likely has obstructive sleep apnea has intermittent history of snoring to be evaluated further outpatient basis Review of Systems All systems: negative Past Medical History Past Medical History: Chest Pain / Angina, Diabetes Mellitus, Hypertension Additional Past Medical History / Comment(s): HEMORRHOID, POSITIVE TEST FOR BLOOD IN STOOL., STATES DIFFICULTY WALKING DISTANCE, BACK PAIN. History of Any Multi-Drug Resistant Organisms: None Reported Past Surgical History: Bariatric Surgery, Heart Catheterization, Tonsillectomy Additional Past Surgical History / Comment(s): LAP BAND INSERTED AND REMOVED (SEPTIC), D & C'S, EXCESS SKIN ON ABDOMEN REMOVED -? PANNICULECTOMY. Past Anesthesia/Blood Transfusion Reactions: No Reported Reaction Past Psychological History: Anxiety Smoking Status: Former smoker Past Alcohol Use History: None Reported Additional Past Alcohol Use History / Comment(s): SMOKED 2 YEARS IN EARLY 20S Past Drug Use History: None Reported - Past Family History Mother Family Medical History: No Reported History Medications and Allergies Home Medications Medication Instructions Recorded Confirmed Type Aspirin [Adult Low Dose Aspirin EC] 81 mg PO DAILY 06/20/17 07/25/19 History Ezetimibe [Zetia] 10 mg PO QAM 06/20/17 07/25/19 History Insulin Regular, Human [humulin R 0 - 10 unit SQ HS PRN 06/20/17 07/25/19 History U-500 Kwikpen] Insulin Regular, Human [humulin R 25 unit SQ QAM 06/20/17 07/25/19 History U-500 Kwikpen] Losartan Potassium [Cozaar] 100 mg PO QAM 06/20/17 07/25/19 History Medroxyprogesterone Acetate 2.5 mg PO QAM 06/20/17 07/25/19 History [Provera] Metoprolol Succinate (ER) [Toprol 50 mg PO QAM 06/20/17 07/25/19 History Xl] Rosuvastatin Calcium [Crestor] 40 mg PO QAM 06/20/17 07/25/19 History Sertraline HCl [Zoloft] 50 mg PO HS 06/20/17 07/25/19 History amLODIPine [Norvasc] 10 mg PO QAM 06/20/17 07/25/19 History Allergies Allergy/AdvReac Type Severity Reaction Status Date / Time No Known Allergies Allergy Verified 07/25/19 14:51 Physical Exam Vitals: Vital Signs Temp Pulse Pulse Resp BP BP Pulse Ox 07/29/19 11:14 90 07/29/19 11:01 88 07/29/19 07:00 97.9 F 77 14 122/70 94 L 07/29/19 01:50 97.8 F 91 18 148/82 95 07/28/19 20:01 80 07/28/19 19:51 78 07/28/19 19:39 97.6 F 77 16 107/70 94 L 07/28/19 16:39 93 L 07/28/19 16:07 78 07/28/19 15:52 80 07/28/19 14:59 97.8 F 80 20 107/62 Intake and Output 07/28/19 07/29/19 07/29/19 22:59 06:59 14:59 Intake Total 100 100 700 Output Total 350 750 Balance 100 -250 -50 Intake: Oral 100 100 700 Output: Urine 350 750 Other: Voiding Method Bedpan # Bowel Movements 0 - Constitutional General appearance: disheveled, morbidly obese, no acute distress - EENT Eyes: anicteric sclerae, EOMI, PERRLA, poor dentition, normal appearance ENT: normal oropharynx Ears: bilateral: normal - Neck Carotids: bilateral: upstroke normal Thyroid: bilateral: normal size - Respiratory Respiratory: bilateral: diminished, negative: dullness, rales, rhonchi, wheezing, prolonged expiration, prolonged inspiration - Cardiovascular Rhythm: regular Heart sounds: normal: S1, S2 - Gastrointestinal General gastrointestinal: normal bowel sounds - Integumentary Integumentary: normal, normal turgor - Neurologic Neurologic: CNII-XII intact - Musculoskeletal Musculoskeletal: gait normal, generalized weakness, strength equal bilaterally - Psychiatric Psychiatric: A&O x's 3, appropriate affect, intact judgment & insight Extensive erythema and edema and redness on left lower extremity up to mid calf level, less 1 edema chronic bilateral Results - Laboratory Findings CBC and BMP: 07/29/19 06:33 07/29/19 06:33 PT/INR, D-dimer PT 11.3 sec (9.0-12.0) 07/25/19 13:05 INR 1.1 (<1.2) 07/25/19 13:05 D-Dimer 1.45 mg/L FEU (<0.60) H 07/25/19 13:05 Abnormal lab findings: Abnormal Labs 07/25/19 07/25/19 07/25/19 13:05 13:05 13:05 WBC 18.2 H Neutrophils # 17.2 H Lymphocytes # 0.4 L APTT 30.7 H D-Dimer 1.45 H Sodium 135 L BUN 24 H Creatinine 1.16 H Glucose 374 H POC Glucose (mg/dL) Hemoglobin A1c AST 44 H Total Protein 6.1 L Albumin 3.1 L 07/25/19 07/25/19 07/26/19 18:16 20:30 05:24 WBC Neutrophils # Lymphocytes # APTT D-Dimer Sodium BUN Creatinine Glucose POC Glucose (mg/dL) 364 H 362 H Hemoglobin A1c 6.6 H AST Total Protein Albumin 07/26/19 07/26/19 07/26/19 05:24 05:24 07:04 WBC 16.1 H Neutrophils # 14.5 H Lymphocytes # 0.5 L APTT D-Dimer Sodium 135 L BUN 27 H Creatinine 1.30 H Glucose 270 H POC Glucose (mg/dL) 261 H Hemoglobin A1c AST 41 H Total Protein 5.7 L Albumin 2.8 L 07/26/19 07/26/19 07/26/19 11:51 17:04 20:18 WBC Neutrophils # Lymphocytes # APTT D-Dimer Sodium BUN Creatinine Glucose POC Glucose (mg/dL) 288 H 216 H 287 H Hemoglobin A1c AST Total Protein Albumin 07/27/19 07/27/19 07/27/19 06:30 06:30 06:45 WBC 15.8 H Neutrophils # 14.0 H Lymphocytes # 0.8 L APTT D-Dimer Sodium BUN 26 H Creatinine 1.18 H Glucose 234 H POC Glucose (mg/dL) 223 H Hemoglobin A1c AST 38 H Total Protein 5.5 L Albumin 2.6 L 07/27/19 07/27/19 07/27/19 11:36 16:29 20:59 WBC Neutrophils # Lymphocytes # APTT D-Dimer Sodium BUN Creatinine Glucose POC Glucose (mg/dL) 356 H 406 H 478 H Hemoglobin A1c AST Total Protein Albumin 07/28/19 07/28/19 07/28/19 06:56 11:53 16:58 WBC Neutrophils # Lymphocytes # APTT D-Dimer Sodium BUN Creatinine Glucose POC Glucose (mg/dL) 409 H 436 H 467 H Hemoglobin A1c AST Total Protein Albumin 07/28/19 07/28/19 07/28/19 17:00 17:33 20:44 WBC Neutrophils # Lymphocytes # APTT D-Dimer Sodium BUN Creatinine Glucose POC Glucose (mg/dL) 427 H 437 H 501 H Hemoglobin A1c AST Total Protein Albumin 07/28/19 07/29/19 07/29/19 20:50 06:33 06:33 WBC 20.2 H Neutrophils # 18.8 H Lymphocytes # 0.5 L APTT D-Dimer Sodium BUN 33 H Creatinine Glucose 427 H POC Glucose (mg/dL) 439 H Hemoglobin A1c AST Total Protein Albumin 07/29/19 07/29/19 07:30 11:50 WBC Neutrophils # Lymphocytes # APTT D-Dimer Sodium BUN Creatinine Glucose POC Glucose (mg/dL) 405 H 382 H Hemoglobin A1c AST Total Protein Albumin - Diagnostic Findings Chest x-ray: report reviewed, image reviewed CT scan - chest: report reviewed, image reviewed Assessment and Plan Assessment: Left lower extremity cellulitis Basal atelectasis Intermittent wheezing related to mucus plugging and possible bronchial asthma Obstructive sleep apnea Morbid obesity Tracheobronchitis Hypertension hypertensive cardiovascular disease Poorly controlled diabetes mellitus Cytosis Plan: Agree with antibiotic Continue Zithromax Into new bronchodilator therapy Hold on steroids Continue new home medications DVT prophylaxis Sleep study as outpatient Time with Patient: Greater than 30
[2019-07-29] MEDS: MORPHINE SULFATE 4 MG/ML SYRINGE IVP PRN (15:09)
[2019-07-29 16:44] LABS: Glucose,Whole Blood 264 mg/dL (75-99)
[2019-07-29 20:16] LABS: Glucose,Whole Blood 296 mg/dL (75-99)
[2019-07-29] MEDS: INSULIN REGULAR 100 UNIT/ML VIAL SQ PRN (20:43)
[2019-07-29] MEDS: SERTRALINE 50 MG TAB PO SCH (20:43)
--- NOTE | 2019-07-29 21:42 | PN ---
PROGRESS NOTE White female whose breathing is slowly improving. She is on 2 L oxygen. Pulmonary consult is appreciated. Her leg swelling and redness are improving. Taken off steroids due to severely high blood sugars, which have now come down. CARDIOVASCULAR: S1, S2. LUNGS: Scattered rhonchi and wheeze. HEMATOLOGY: Two to three plus pedal edema. ASSESSMENT: 1. Cellulitis of left leg, improving. 2. Acute hypoxic respiratory distress. 3. Asthma exacerbation. 4. Diastolic congestive heart failure, improving. Steroids have been stopped. Breathing treatments p.r.n. IV antibiotics. Possible discharge in the next 24 to 48 hours. MMODL / IJN: [id number] /
[2019-07-29] MEDS ORDERED: VANCOMYCIN IV PER PHARMACY 1 EACH MISC MISCELLANE PRN (22:11)
[2019-07-29] MEDS ORDERED: VANCOMYCIN 2,000 MG in SODIUM CHLORIDE 0.9% 500 ML 500 ML IVPB SCH (23:00)
--- NOTE | 2019-07-30 00:03 | PN ---
PROGRESS NOTE DATE OF SERVICE: 07/29/2019 REASON FOR FOLLOWUP: Left leg cellulitis. INTERVAL HISTORY: The patient is currently afebrile. The patient has been breathing comfortably. The patient denies having any chest pain or cough. No nausea, vomiting. Left leg pain, swelling and redness have improved per patient. PHYSICAL EXAMINATION: Blood pressure 144/64 with a pulse of 86, temperature of 98.5. She is 92% on 2 L nasal cannula. General description is an elderly female lying in bed in no distress. RESPIRATORY SYSTEM: Unlabored breathing. Clear to auscultation anteriorly. HEART: S1, S2. Regular rate and rhythm. ABDOMEN: Soft. No tenderness. Left leg swelling and redness mildly improved. LABS: White count did jump to 20,000. DIAGNOSTIC IMPRESSION AND PLAN: Patient with left lower extremity cellulitis in this patient who did have diffuse swelling and redness with concern for streptococcal disease. However, it has not shown significant improvement with cefazolin, now with a jump in the white count. Will go ahead and discontinue cefazolin and start the patient on vancomycin, Pharmacy to dose. Repeat CBC tomorrow. Continue with supportive care. MMODL / IJN: [id number] /
[2019-07-30 07:09] LABS: Glucose,Whole Blood 223 mg/dL (75-99)
[2019-07-30] MEDS: INSULIN ASPART (NovoLOG) 100 UNIT/ML VIAL SQ SCH ×7 (07:59→21:27)
[2019-07-30] MEDS ORDERED: AZITHROMYCIN 500 MG TAB PO SCH (09:00)
[2019-07-30] MEDS: IPRATROPIUM-ALBUTEROL 3 ML NEB INHALATION SCH ×5 (09:02→21:07)
[2019-07-30] MEDS: INSULIN REGULAR 100 UNIT/ML VIAL SQ SCH (09:22)
[2019-07-30] MEDS: ASPIRIN 81 MG PO SCH (09:22)
[2019-07-30] MEDS: ENOXAPARIN 40 MG/0.4 ML SYRINGE SQ SCH (09:22)
[2019-07-30] MEDS: METOPROLOL SUCCINATE (ER) 50 MG TAB.ER.24H PO SCH (09:23)
[2019-07-30] MEDS: amLODIPine 10 MG TAB PO SCH (09:23)
[2019-07-30] MEDS: EZETIMIBE 10 MG TAB PO SCH (09:23)
[2019-07-30] MEDS: ATORVASTATIN 80 MG TAB PO SCH (09:23)
[2019-07-30] MEDS: LOSARTAN 50 MG TAB PO SCH (09:23)
[2019-07-30 11:45] LABS: Glucose,Whole Blood 220 mg/dL (75-99)
--- NOTE | 2019-07-30 15:24 | CDI ---
Documentation Clarification Form Date: 07/30/2019 3:06:39 PM From: Maura Mccarty RN CCDS Admit Date: 07/27/2019 3:50:00 PM Patient Name: Cintia Paulson I Visit Number: [id number] Discharge Date: ATTENTION: The Clinical Documentation Specialists (CDI) and [facility] Coding Staff appreciate your assistance in clarifying documentation. Please respond to the clarification below the line at the bottom and electronically sign. The CDI & [facility] Coding staff will review the response and follow-up if needed. Please note: Queries are made part of the Legal Health Record. If you have any questions, please contact the author of this message via ITS. Dr. Azeem Llanes Congestive Heart Failure is documented in the H & P 07/25/2019 History/Risk Factors: 69-year-old female presents to the ED with left lower extremity pain, swelling, redness, ecthyma and warmth. Medical History: Heart Failure; DM, HTN, Angina Clinical Indicators: Your Progress note 07/29/2019 Diastolic congestive heart failure, improving. VS/Pulse OX: 07/25/2019; 157/78 101 98.2 18 97% ra BNP: 07/25/2019; 933 Chest X Ray: 07/25/2019 No acute pulmonary process. CTA 07/25/2019 Mild subsegmental atelectasis at the lung bases. Treatment: 07/26/2019 Norvasc daily; Cozaar daily; Toprol Xl daily; 07/27/2019 Lasix 40mg ivp; In your professional opinion, can you please clarify the acuity and type of CHF if known? * Chronic Diastolic Heart Failure * Acute on Chronic Heart Failure * Unable to Determine * Other, please specify (Last Revision: January 2018) MTDD
[2019-07-30 16:43] LABS: Glucose,Whole Blood 150 mg/dL (75-99)
--- NOTE | 2019-07-30 19:34 | P.PN ---
Subjective Progress Note Date: 07/30/19 Principal diagnosis: Left lower extremity cellulitis Basal atelectasis Intermittent wheezing related to mucus plugging and possible bronchial asthma Obstructive sleep apnea Morbid obesity Tracheobronchitis Hypertension hypertensive cardiovascular disease Poorly controlled diabetes mellitus 07/30/2019, patient seen and evaluated examined shortness of breath slightly better cough and congestion however still going on both lower extremity have been wrapped with Jose wrapping feels slightly better, remains on antibiotics breathing treatment This is a 69-year-old female who was seen eval reexamined on medical floor admitted into the hospital left lower extremity DVT computed tomography scan of his chest shows some subsegmental atelectasis she has problem with intermittent wheezing cough and congestion for which she has been on oral antibiotics and as aged breathing treatment she feels better from respiratory standpoint extensive lower extremity left cellulitis is present she is being treated with IV cefazolin, review of the data revealed that left leg pain swelling redness that has been going on for 2 days before the patient presented to the hospital the patient did have diffuse swelling and redness to the left lower extremity, patient describing the pain to be sharp at times dull aching with intensity of almost 7-8 out of 10 and no radiation the patient did have a diffuse redness but no blister or any open wound with the symptom and the patient was evaluated by the ER physician, on route to the ER the patient was afebrile however she did have elevated white count of 18,000 the patient did have lower extremity Doppler was negative for DVT she also have a CT angiographic there was negative for PE she likely has obstructive sleep apnea has intermittent history of snoring to be evaluated further outpatient basis Objective - Vital Signs Vital signs: Vital Signs Temp 98.3 F 07/30/19 14:30 Pulse 88 07/30/19 14:30 Resp 20 07/30/19 14:30 BP 152/70 07/30/19 14:30 Pulse Ox 90 L 07/30/19 14:30 Intake & Output 07/30/19 07/30/19 07/31/19 06:59 18:59 06:59 Intake Total 200 250 Output Total 1150 1400 Balance -950 -1150 Intake: Oral 200 250 Output: Urine 1150 1400 Other: Voiding Method Bedpan Bedpan # Bowel Movements 1 - Exam - Constitutional General appearance: disheveled, morbidly obese, no acute distress - EENT Eyes: anicteric sclerae, EOMI, PERRLA, poor dentition, normal appearance ENT: normal oropharynx Ears: bilateral: normal - Neck Carotids: bilateral: upstroke normal Thyroid: bilateral: normal size - Respiratory Respiratory: bilateral: diminished, negative: dullness, rales, rhonchi, wheezing, prolonged expiration, prolonged inspiration - Cardiovascular Rhythm: regular Heart sounds: normal: S1, S2 - Gastrointestinal General gastrointestinal: normal bowel sounds - Integumentary Integumentary: normal, normal turgor - Neurologic Neurologic: CNII-XII intact - Musculoskeletal Musculoskeletal: gait normal, generalized weakness, strength equal bilaterally - Psychiatric Psychiatric: A&O x's 3, appropriate affect, intact judgment & insight Extensive erythema and edema and redness on left lower extremity up to mid calf level, less 1 edema chronic bilateral - Labs CBC & Chem 7: 07/29/19 06:33 07/29/19 06:33 Labs: Abnormal Lab Results - Last 24 Hours (Table) 07/29/19 07/30/19 07/30/19 Range/Units 20:16 07:07 11:44 POC Glucose (mg/dL) 296 H 223 H 220 H (75-99) mg/dL 07/30/19 Range/Units 16:41 POC Glucose (mg/dL) 150 H (75-99) mg/dL Microbiology - Last 24 Hours (Table) 07/25/19 14:28 Blood Culture - Preliminary Blood No Growth after 120 hours Assessment and Plan Assessment: Left lower extremity cellulitis Basal atelectasis Intermittent wheezing related to mucus plugging and possible bronchial asthma Obstructive sleep apnea Morbid obesity Tracheobronchitis Hypertension hypertensive cardiovascular disease Poorly controlled diabetes mellitus Leukocytosis Plan: Agree with antibiotic Continue Zithromax Into new bronchodilator therapy Hold on steroids Continue new home medications DVT prophylaxis Sleep study as outpatient Time with Patient: Greater than 30
[2019-07-30 20:17] LABS: Glucose,Whole Blood 174 mg/dL (75-99)
[2019-07-30] MEDS ORDERED: VANCOMYCIN 2,000 MG in SODIUM CHLORIDE 0.9% 500 ML 500 ML IVPB SCH (21:00)
[2019-07-30] MEDS: INSULIN REGULAR 100 UNIT/ML VIAL SQ PRN (21:27)
[2019-07-30] MEDS: SERTRALINE 50 MG TAB PO SCH (21:28)
--- NOTE | 2019-07-30 22:02 | PN ---
PROGRESS NOTE SUBJECTIVE: 69-year-old female cellulitis, left leg, acute hypoxic respiratory distress, asthma exacerbation, diastolic CHF. Remains on broad-spectrum IV antibiotics with vancomycin and cefazolin failed. Vital signs stable. Afebrile. Cardiovascular S1, S2. Lungs clear. GI soft. Extremities show severe redness, warmth and edema in the left leg. Continue on IV vancomycin, antibiotic cream. PT/OT. Breathing treatments p.r.n. for asthma. MMODL / IJN: [id number] /
--- NOTE | 2019-07-30 23:11 | PN ---
PROGRESS NOTE DATE OF SERVICE: 07/30/2019. REASON FOR FOLLOWUP: Left lower extremity cellulitis. INTERVAL HISTORY: The patient is currently afebrile. The patient has been breathing comfortably. The patient denies having any chest pain. No shortness of breath or cough. No nausea, vomiting, abdominal pain, or worsening pain in the left posterior leg area. PHYSICAL EXAMINATION: Blood pressure is 152/70 with a pulse of 88, temperature 98.3. She is 90% on 2 L nasal cannula. General description is an elderly female, lying in bed in no distress. Respiratory system: Unlabored breathing. Clear to auscultation anteriorly. Heart S1, S2. Regular rate and rhythm. Abdomen soft, no tenderness. Left leg is currently wrapped up. No obvious drainage on the dressing. LABS: No new labs have been obtained today. DIAGNOSTIC IMPRESSION AND PLAN: Patient with left lower extremity cellulitis. Did not show good clinical improvement on IV cefazolin. She was switched over to vancomycin yesterday. We will repeat CBC tomorrow as none was done today. Reevaluate the left. Continue supportive care. MMODL / IJN: [id number] /
[2019-07-31 07:17] LABS: Glucose,Whole Blood 141 mg/dL (75-99)
[2019-07-31] MEDS: INSULIN ASPART (NovoLOG) 100 UNIT/ML VIAL SQ SCH ×7 (07:46→20:19)
[2019-07-31 07:51] LABS: African American GFR (CKD) >90 (>60 ml/min/1.73 sqM); Anion Gap 8 mmol/L; Blood Urea Nitrogen 23 mg/dL (7-17); Carbon Dioxide 28 mmol/L (22-30); Chloride 105 mmol/L (98-107); Glucose 145 mg/dL (74-99); Potassium 3.8 mmol/L (3.5-5.1); Sodium 141 mmol/L (137-145)
[2019-07-31 07:57] LABS: Basophils # (A) 0.1 k/uL (0-0.2); Basophils % (A) 1 %; Eosinophils # (A) 0.3 k/uL (0-0.7); Eosinophils % (A) 3 %; HCT 40.7 % (34.0-46.0); HGB 12.7 gm/dL (11.4-16.0); Lymphocytes # (A) 0.9 k/uL (1.0-4.8); Lymphocytes % (A) 8 %; MCH 29.4 pg (25.0-35.0); MCHC 31.3 g/dL (31.0-37.0); Mean Platelet Volume 7.5; Monocytes # (A) 0.4 k/uL (0-1.0); Monocytes % (A) 4 %; Neutrophils # (A) 10.1 k/uL (1.3-7.7); Neutrophils % (A) 85 %; Platelet Count 308 k/uL (150-450); RBC 4.33 m/uL (3.80-5.40); RDW 13.5 % (11.5-15.5)
[2019-07-31] MEDS: IPRATROPIUM-ALBUTEROL 3 ML NEB INHALATION SCH ×4 (08:22→20:16)
[2019-07-31] MEDS: INSULIN REGULAR 100 UNIT/ML VIAL SQ SCH (09:14)
[2019-07-31] MEDS: ENOXAPARIN 40 MG/0.4 ML SYRINGE SQ SCH (09:14)
[2019-07-31] MEDS: amLODIPine 10 MG TAB PO SCH (09:15)
[2019-07-31] MEDS: METOPROLOL SUCCINATE (ER) 50 MG TAB.ER.24H PO SCH (09:15)
[2019-07-31] MEDS: ASPIRIN 81 MG PO SCH (09:15)
[2019-07-31] MEDS: LOSARTAN 50 MG TAB PO SCH (09:15)
[2019-07-31] MEDS: ATORVASTATIN 80 MG TAB PO SCH (09:15)
[2019-07-31] MEDS: EZETIMIBE 10 MG TAB PO SCH (09:15)
[2019-07-31 10:01] LABS: C Reactive Protein 113.1 mg/L (<10.0)
[2019-07-31 12:21] LABS: Glucose,Whole Blood 139 mg/dL (75-99)
[2019-07-31] MEDS: VANCOMYCIN 2,000 MG in SODIUM CHLORIDE 0.9% 500 ML 500 ML IVPB SCH (15:22)
[2019-07-31 17:17] LABS: Glucose,Whole Blood 159 mg/dL (75-99)
[2019-07-31] MEDS: SERTRALINE 50 MG TAB PO SCH (20:19)
[2019-07-31 20:25] LABS: Glucose,Whole Blood 275 mg/dL (75-99)
--- NOTE | 2019-07-31 22:44 | PN ---
PROGRESS NOTE 69-year-old white female, cellulitis left leg. He is on IV vancomycin. Improving. Breathing is improved with updraft treatments. Cardiovascular: S1-S2. Lungs scattered wheeze x4. Hematology shows lymphedema type changes, cellulitis of the left leg, moderately improved. ASSESSMENT AND PLAN: 1. Cellulitis, left leg. 2. Acute hypoxemic respiratory distress. 3. Asthma exacerbation. 4. Diastolic congestive heart failure. 5. Continue on IV vancomycin. 6. Possible discharge home tomorrow. MMODL / IJN: [id number] /
--- NOTE | 2019-07-31 23:48 | PN ---
PROGRESS NOTE DATE OF SERVICE: 07/31/2019. REASON FOR FOLLOWUP: Left lower extremity cellulitis. INTERVAL HISTORY: The patient is currently afebrile. The patient has been breathing comfortably. Denies having any chest pain or any cough. No nausea, vomiting or worsening pain in the left leg area. PHYSICAL EXAMINATION: Blood pressure is 154/95 with a pulse of 82, temperature 98.7. She is 94% on 2 L nasal cannula. General description is an elderly female lying in bed in no distress. Respiratory system: Unlabored breathing, clear to auscultation anteriorly. Heart S1, S2. Regular rate. ABDOMEN: Soft. Tenderness. Left leg swelling persists. Redness has decreased, mostly a bruise pattern. LABS: Hemoglobin is 12.7, white count 12,000. BUN of 23, creatinine 0.77. DIAGNOSTIC IMPRESSION AND PLAN: Patient with extensive left lower extremity cellulitis. The patient actually has shown clinical improvement with the vancomycin to continue for now. With the plan to treat with oral antibiotics. Continue supportive care. MMODL / IJN: [id number] /
[2019-08-01 02:05] VITALS: TEMP 98.1
[2019-08-01 06:51] LABS: Glucose,Whole Blood 247 mg/dL (75-99)
[2019-08-01] MEDS: INSULIN ASPART (NovoLOG) 100 UNIT/ML VIAL SQ SCH ×4 (07:47→12:59)
--- NOTE | 2019-08-01 07:49 | P.PN ---
Subjective Progress Note Date: 08/01/19 Principal diagnosis: Left lower extremity cellulitis Basal atelectasis Intermittent wheezing related to mucus plugging and possible bronchial asthma Obstructive sleep apnea Morbid obesity Tracheobronchitis Hypertension hypertensive cardiovascular disease Poorly controlled diabetes mellitus 08/01/2019, patient seen and evaluated examined during the rounds care plan discussed with the patient also discussed with the staff at length, cellulitis of the lower extremity improved right leg is covered with dressing however patient remains on antibiotics labs reviewed medications reviewed patient noted to have intermittent episodes of apnea as per his staff will be scheduled for a sleep study as outpatient 07/30/2019, patient seen and evaluated examined shortness of breath slightly better cough and congestion however still going on both lower extremity have been wrapped with Jose wrapping feels slightly better, remains on antibiotics breathing treatment This is a 69-year-old female who was seen eval reexamined on medical floor admitted into the hospital left lower extremity DVT computed tomography scan of his chest shows some subsegmental atelectasis she has problem with intermittent wheezing cough and congestion for which she has been on oral antibiotics and as aged breathing treatment she feels better from respiratory standpoint extensive lower extremity left cellulitis is present she is being treated with IV cefazolin, review of the data revealed that left leg pain swelling redness that has been going on for 2 days before the patient presented to the hospital the patient did have diffuse swelling and redness to the left lower extremity, patient describing the pain to be sharp at times dull aching with intensity of almost 7-8 out of 10 and no radiation the patient did have a diffuse redness but no blister or any open wound with the symptom and the patient was evaluated by the ER physician, on route to the ER the patient was afebrile however she did have elevated white count of 18,000 the patient did have lower extremity Doppler was negative for DVT she also have a CT angiographic there was negative for PE she likely has obstructive sleep apnea has intermittent history of snoring to be evaluated further outpatient basis Objective - Vital Signs Vital signs: Vital Signs Temp 98.1 F 08/01/19 00:12 Pulse 85 08/01/19 00:12 Resp 15 08/01/19 00:12 BP 145/73 08/01/19 00:12 Pulse Ox 95 08/01/19 00:12 Intake & Output 07/31/19 08/01/19 08/01/19 18:59 06:59 18:59 Intake Total 800 Output Total 650 Balance 800 -650 Intake: Oral 800 Output: Urine 650 Other: Voiding Method Bedpan - Exam - Constitutional General appearance: disheveled, morbidly obese, no acute distress - EENT Eyes: anicteric sclerae, EOMI, PERRLA, poor dentition, normal appearance ENT: normal oropharynx Ears: bilateral: normal - Neck Carotids: bilateral: upstroke normal Thyroid: bilateral: normal size - Respiratory Respiratory: bilateral: diminished, negative: dullness, rales, rhonchi, wheezing, prolonged expiration, prolonged inspiration - Cardiovascular Rhythm: regular Heart sounds: normal: S1, S2 - Gastrointestinal General gastrointestinal: normal bowel sounds - Integumentary Integumentary: normal, normal turgor - Neurologic Neurologic: CNII-XII intact - Musculoskeletal Musculoskeletal: gait normal, generalized weakness, strength equal bilaterally - Psychiatric Psychiatric: A&O x's 3, appropriate affect, intact judgment & insight Extensive erythema and edema and redness on left lower extremity up to mid calf level, less 1 edema chronic bilateral - Labs CBC & Chem 7: 07/31/19 07:06 07/31/19 07:06 Labs: Abnormal Lab Results - Last 24 Hours (Table) 07/31/19 07/31/19 07/31/19 Range/Units 07:06 07:06 12:08 WBC 12.0 H (3.8-10.6) k/uL Neutrophils # 10.1 H (1.3-7.7) k/uL Lymphocytes # 0.9 L (1.0-4.8) k/uL BUN 23 H (7-17) mg/dL Glucose 145 H (74-99) mg/dL POC Glucose (mg/dL) 139 H (75-99) mg/dL C-Reactive Protein 113.1 H (<10.0) mg/L 07/31/19 07/31/19 08/01/19 Range/Units 17:05 20:12 06:49 WBC (3.8-10.6) k/uL Neutrophils # (1.3-7.7) k/uL Lymphocytes # (1.0-4.8) k/uL BUN (7-17) mg/dL Glucose (74-99) mg/dL POC Glucose (mg/dL) 159 H 275 H 247 H (75-99) mg/dL C-Reactive Protein (<10.0) mg/L Microbiology - Last 24 Hours (Table) 07/25/19 14:28 Blood Culture - Final Blood No Growth after 144 hours Assessment and Plan Assessment: Left lower extremity cellulitis Basal atelectasis Intermittent wheezing related to mucus plugging and possible bronchial asthma Obstructive sleep apnea Morbid obesity Tracheobronchitis Hypertension hypertensive cardiovascular disease Poorly controlled diabetes mellitus Leukocytosis Plan: Agree with antibiotic Continue Zithromax Into new bronchodilator therapy Hold on steroids Continue new home medications DVT prophylaxis Sleep study as outpatient Diana can be discharged from pulmonary standpoint with follow-up as outpatient Time with Patient: Greater than 30
[2019-08-01 07:58] VITALS: BP 156/73; RESP 18
[2019-08-01] MEDS: VANCOMYCIN 2,000 MG in SODIUM CHLORIDE 0.9% 500 ML 500 ML IVPB SCH (08:23)
[2019-08-01] MEDS: ATORVASTATIN 80 MG TAB PO SCH (08:24)
[2019-08-01] MEDS: ASPIRIN 81 MG PO SCH (08:24)
[2019-08-01] MEDS: LOSARTAN 50 MG TAB PO SCH (08:24)
[2019-08-01] MEDS: EZETIMIBE 10 MG TAB PO SCH (08:24)
[2019-08-01] MEDS: ENOXAPARIN 40 MG/0.4 ML SYRINGE SQ SCH (08:25)
[2019-08-01] MEDS: METOPROLOL SUCCINATE (ER) 50 MG TAB.ER.24H PO SCH (08:25)
[2019-08-01] MEDS: INSULIN REGULAR 100 UNIT/ML VIAL SQ SCH (08:25)
[2019-08-01] MEDS: amLODIPine 10 MG TAB PO SCH (08:25)
[2019-08-01] MEDS: IPRATROPIUM-ALBUTEROL 3 ML NEB INHALATION SCH ×2 (08:28→11:58)
[2019-08-01 08:59] LABS: African American GFR (CKD) >90 (>60 ml/min/1.73 sqM)
[2019-08-01 11:36] LABS: Glucose,Whole Blood 246 mg/dL (75-99)
[2019-08-01 12:01] VITALS: PULSE 80
--- NOTE | 2019-08-01 16:43 | PN ---
PROGRESS NOTE DATE OF SERVICE: 08/01/2019. REASON FOR FOLLOWUP: Left lower extremity cellulitis. INTERVAL HISTORY: The patient is currently afebrile. Patient had been feeling better. Breathing comfortably. Denies having any chest pain or cough. No nausea or vomiting. No abdominal pain or pain to the left leg area. Overall swelling and redness has decreased. PHYSICAL EXAMINATION: Blood pressure is 156/73 with a pulse of 82, temperature 98.1. She is 93% on 2 L nasal cannula. General description is an elderly female lying in bed in no distress. Respiratory system: Unlabored breathing. Clear to auscultation anteriorly. Heart S1, S2. Regular rate and rhythm. ABDOMEN: Soft, no tenderness. Left leg swelling and redness has much improved. LABS: Creatinine 0.61. DIAGNOSTIC IMPRESSION AND PLAN: Patient with acute left lower extremity cellulitis. Patient has shown clinical improvement on vancomycin. Antibiotic will transition over to Keflex and doxycycline combination for a week. Prescription has been sent to pharmacy. Follow up in the office 1 week. MMODL / IJN: [id number] /
--- NOTE | 2019-08-03 11:09 | DS ---
DISCHARGE SUMMARY Please add to the discharge summary: Acute on chronic diastolic heart failure. MMODL / IJN: [id number] /
== END 2019-08-01 14:18 | disposition home or self-care (01) | DRG 602 ==
LOC: EC 14:06 → 4MS4W 16:20 → 4SSUR 07-26 15:46 → OBSVTOIN 07-27 15:50
PROVIDERS: ADMIT Family Medicine; ATTEND Family Medicine
DX: L03.116 Cellulitis of left lower limb (principal); I50.33 Acute on chronic diastolic (congestive) heart failure; Z68.43 Body mass index [BMI] 50.0-59.9, adult; J45.901 Unspecified asthma with (acute) exacerbation; J98.11 Atelectasis; E11.65 Type 2 diabetes mellitus with hyperglycemia; T17.990A Other foreign object in respiratory tract, part unspecified in causing asphyxiation, initial encounter; E66.01 Morbid (severe) obesity due to excess calories; G47.33 Obstructive sleep apnea (adult) (pediatric); I11.0 Hypertensive heart disease with heart failure; J44.9 Chronic obstructive pulmonary disease, unspecified; Z79.4 Long term (current) use of insulin; Z79.82 Long term (current) use of aspirin; Z79.899 Other long term (current) drug therapy; Z87.891 Personal history of nicotine dependence; Z90.49 Acquired absence of other specified parts of digestive tract; Z90.89 Acquired absence of other organs; Z98.890 Other specified postprocedural states
CPT/HCPCS: 36415; 71045; 71046; 71275; 80048; 80053; 82565; 83036; 83735; 83880; 84484; 85025; 85379; 85610; 85730; 86140; 87040; 93005; 94640; 94760; 96365; 96375; 99285

== ENCOUNTER 2021-10-14 16:52 | Inpatient (IN) | payer MEDICARE, OTHER ==
[2021-10-14] MEDS ORDERED: IPRATROPIUM-ALBUTEROL 3 ML NEB INHALATION STA (17:20)
--- NOTE | 2021-10-14 17:21 | ED ---
General Adult HPI - General Chief complaint: Shortness of Breath Stated complaint: TRINITY Time Seen by Provider: 10/14/21 17:02 Source: EMS Mode of arrival: EMS Limitations: no limitations - History of Present Illness Initial comments: 71-year-old female with a past medical history of COPD on 3 L home O2, diabetes mellitus, hypertension presents to the emergency room for shortness of breath. Patient has been short of breath for the past couple days. She has also had congestion. Patient presents on BiPAP. Patient did receive 125 mg of Solu- Medrol as well as 1 DuoNeb and 1 albuterol treatment. Patient has no other complaints at this time including chest pain, abdominal pain, nausea or vomiting, headache, or visual changes. - Related Data Home Medications Medication Instructions Recorded Confirmed Ezetimibe [Zetia] 10 mg PO DAILY 06/20/17 10/14/21 Losartan Potassium [Cozaar] 100 mg PO DAILY 06/20/17 10/14/21 Metoprolol Succinate (ER) [Toprol 50 mg PO DAILY 06/20/17 10/14/21 Xl] Rosuvastatin Calcium [Crestor] 40 mg PO DAILY 06/20/17 10/14/21 Sertraline HCl [Zoloft] 50 mg PO HS 06/20/17 10/14/21 amLODIPine [Norvasc] 10 mg PO DAILY 06/20/17 10/14/21 Insulin Regular [HumuLIN R] 5 units SQ AC-SUPPER 10/14/21 10/14/21 Insulin Regular [HumuLIN R] 20 units SQ AC-BRKFST 10/14/21 10/14/21 Allergies Allergy/AdvReac Type Severity Reaction Status Date / Time No Known Allergies Allergy Verified 10/14/21 18:23 Review of Systems ROS Statement: Those systems with pertinent positive or pertinent negative responses have been documented in the HPI. ROS Other: All systems not noted in ROS Statement are negative. Past Medical History Past Medical History: Chest Pain / Angina, Diabetes Mellitus, Hypertension Additional Past Medical History / Comment(s): HEMORRHOID, POSITIVE TEST FOR BLOOD IN STOOL., STATES DIFFICULTY WALKING DISTANCE, BACK PAIN. History of Any Multi-Drug Resistant Organisms: None Reported Past Surgical History: Bariatric Surgery, Heart Catheterization, Tonsillectomy Additional Past Surgical History / Comment(s): LAP BAND INSERTED AND REMOVED (SEPTIC), D & C'S, EXCESS SKIN ON ABDOMEN REMOVED -? PANNICULECTOMY. Past Anesthesia/Blood Transfusion Reactions: No Reported Reaction Past Psychological History: Anxiety Smoking Status: Never smoker Past Alcohol Use History: None Reported Past Drug Use History: None Reported - Past Family History Mother Family Medical History: No Reported History General Exam Limitations: no limitations General appearance: alert, in no apparent distress Head exam: Present: atraumatic Eye exam: Present: normal appearance, PERRL, EOMI. Absent: scleral icterus, conjunctival injection ENT exam: Present: normal exam, mucous membranes moist Neck exam: Present: normal inspection, full ROM. Absent: tenderness Respiratory exam: Present: wheezes, other (biPAP). Absent: respiratory distress Cardiovascular Exam: Present: regular rate, normal rhythm, normal heart sounds GI/Abdominal exam: Present: soft, normal bowel sounds. Absent: distended, tenderness Neurological exam: Present: alert Course Vital Signs 10/14/21 10/14/21 10/14/21 16:58 19:21 19:36 Temperature 99 F Pulse Rate 108 H 104 H 106 H Respiratory 24 Rate Blood Pressure 176/110 O2 Sat by Pulse 100 Oximetry EKG Findings - EKG Comments: EKG Findings:: Sinus tachycardia, ventricular rate 103, NJ interval 184, QTC 448 Medical Decision Making - Medical Decision Making 71-year-old female with a past medical history of diabetes, hypertension, heart failure on 3 L home oxygen presents to the emergency room for shortness of breath. Patient couldn't catch her breath at home on her oxygen. I just spoke with the son and apparently patient was 55% on her oxygen at home. Patient was brought in by ambulance on BiPAP with 2 breathing treatments and steroids on board. He was eventually transitioned to 5 L nasal cannula without difficulty. Slight crackles in lung peacock. CBC does show leukocytosis. CMP revealed hyperglycemia , patient does have a history of diabetes. COVID-19 negative. D- dimer elevated therefore CT obtained. This does show a right lower lobe bronchopneumonia. At this time given patient's increased oxygen consumption we will admit for IV antibiotics. - Lab Data Result diagrams: 10/14/21 17:30 10/14/21 17:30 Lab Results 10/14/21 10/14/21 10/14/21 Range/Units 17:30 17:30 17:30 WBC 13.3 H (3.8-10.6) k/uL RBC 4.40 (3.80-5.40) m/uL Hgb 13.4 (11.4-16.0) gm/dL Hct 42.4 (34.0-46.0) % MCV 96.3 (80.0-100.0) fL MCH 30.4 (25.0-35.0) pg MCHC 31.6 (31.0-37.0) g/dL RDW 13.8 (11.5-15.5) % Plt Count 214 (150-450) k/uL MPV 7.9 Neutrophils % 92 % Lymphocytes % 4 % Monocytes % 3 % Eosinophils % 1 % Basophils % 0 % Neutrophils # 12.1 H (1.3-7.7) k/uL Lymphocytes # 0.5 L (1.0-4.8) k/uL Monocytes # 0.4 (0-1.0) k/uL Eosinophils # 0.2 (0-0.7) k/uL Basophils # 0.0 (0-0.2) k/uL Hypochromasia Slight PT 9.9 (9.0-12.0) sec INR 0.9 (<1.2) APTT 23.0 (22.0-30.0) sec D-Dimer (<0.60) mg/L FEU Sodium 137 (137-145) mmol/L Potassium 5.0 (3.5-5.1) mmol/L Chloride 103 (98-107) mmol/L Carbon Dioxide 27 (22-30) mmol/L Anion Gap 7 mmol/L BUN 21 H (7-17) mg/dL Creatinine 0.70 (0.52-1.04) mg/dL Est GFR (CKD-EPI)AfAm >90 (>60 ml/min/1.73 sqM) Est GFR (CKD-EPI)NonAf 87 (>60 ml/min/1.73 sqM) Glucose 313 H (74-99) mg/dL Plasma Lactic Acid Reynaldo (0.7-2.0) mmol/L Calcium 9.6 (8.4-10.2) mg/dL Total Bilirubin 0.8 (0.2-1.3) mg/dL AST 30 (14-36) U/L ALT 20 (4-34) U/L Alkaline Phosphatase 97 (38-126) U/L Troponin I (0.000-0.034) ng/mL NT-Pro-B Natriuret Pep pg/mL Total Protein 7.2 (6.3-8.2) g/dL Albumin 3.8 (3.5-5.0) g/dL Coronavirus (PCR) (Not Detectd) 10/14/21 10/14/21 10/14/21 Range/Units 17:30 17:30 17:30 WBC (3.8-10.6) k/uL RBC (3.80-5.40) m/uL Hgb (11.4-16.0) gm/dL Hct (34.0-46.0) % MCV (80.0-100.0) fL MCH (25.0-35.0) pg MCHC (31.0-37.0) g/dL RDW (11.5-15.5) % Plt Count (150-450) k/uL MPV Neutrophils % % Lymphocytes % % Monocytes % % Eosinophils % % Basophils % % Neutrophils # (1.3-7.7) k/uL Lymphocytes # (1.0-4.8) k/uL Monocytes # (0-1.0) k/uL Eosinophils # (0-0.7) k/uL Basophils # (0-0.2) k/uL Hypochromasia PT (9.0-12.0) sec INR (<1.2) APTT (22.0-30.0) sec D-Dimer 0.95 H (<0.60) mg/L FEU Sodium (137-145) mmol/L Potassium (3.5-5.1) mmol/L Chloride (98-107) mmol/L Carbon Dioxide (22-30) mmol/L Anion Gap mmol/L BUN (7-17) mg/dL Creatinine (0.52-1.04) mg/dL Est GFR (CKD-EPI)AfAm (>60 ml/min/1.73 sqM) Est GFR (CKD-EPI)NonAf (>60 ml/min/1.73 sqM) Glucose (74-99) mg/dL Plasma Lactic Acid Reynaldo 1.3 (0.7-2.0) mmol/L Calcium (8.4-10.2) mg/dL Total Bilirubin (0.2-1.3) mg/dL AST (14-36) U/L ALT (4-34) U/L Alkaline Phosphatase (38-126) U/L Troponin I (0.000-0.034) ng/mL NT-Pro-B Natriuret Pep 580 pg/mL Total Protein (6.3-8.2) g/dL Albumin (3.5-5.0) g/dL Coronavirus (PCR) (Not Detectd) 10/14/21 10/14/21 Range/Units 17:30 18:08 WBC (3.8-10.6) k/uL RBC (3.80-5.40) m/uL Hgb (11.4-16.0) gm/dL Hct (34.0-46.0) % MCV (80.0-100.0) fL MCH (25.0-35.0) pg MCHC (31.0-37.0) g/dL RDW (11.5-15.5) % Plt Count (150-450) k/uL MPV Neutrophils % % Lymphocytes % % Monocytes % % Eosinophils % % Basophils % % Neutrophils # (1.3-7.7) k/uL Lymphocytes # (1.0-4.8) k/uL Monocytes # (0-1.0) k/uL Eosinophils # (0-0.7) k/uL Basophils # (0-0.2) k/uL Hypochromasia PT (9.0-12.0) sec INR (<1.2) APTT (22.0-30.0) sec D-Dimer (<0.60) mg/L FEU Sodium (137-145) mmol/L Potassium (3.5-5.1) mmol/L Chloride (98-107) mmol/L Carbon Dioxide (22-30) mmol/L Anion Gap mmol/L BUN (7-17) mg/dL Creatinine (0.52-1.04) mg/dL Est GFR (CKD-EPI)AfAm (>60 ml/min/1.73 sqM) Est GFR (CKD-EPI)NonAf (>60 ml/min/1.73 sqM) Glucose (74-99) mg/dL Plasma Lactic Acid Reynaldo (0.7-2.0) mmol/L Calcium (8.4-10.2) mg/dL Total Bilirubin (0.2-1.3) mg/dL AST (14-36) U/L ALT (4-34) U/L Alkaline Phosphatase (38-126) U/L Troponin I 0.014 (0.000-0.034) ng/mL NT-Pro-B Natriuret Pep pg/mL Total Protein (6.3-8.2) g/dL Albumin (3.5-5.0) g/dL Coronavirus (PCR) Not Detected (Not Detectd) Disposition Clinical Impression: Shortness of breath, Leukocytosis, Pneumonia, Hyperglycemia Disposition: ADMITTED IP TO THIS HOSP Is patient prescribed a controlled substance at d/c from ED?: No Referrals: Gregoria Llanes MD [Primary Care Provider] - 1-2 days Time of Disposition: 21:23
[2021-10-14 17:50] LABS: Basophils % (A) 0 %; Eosinophils # (A) 0.2 k/uL (0-0.7); Eosinophils % (A) 1 %; HCT 42.4 % (34.0-46.0); HGB 13.4 gm/dL (11.4-16.0); Hypochromasia Slight; Lymphocytes # (A) 0.5 k/uL (1.0-4.8); Lymphocytes % (A) 4 %; MCH 30.4 pg (25.0-35.0); MCHC 31.6 g/dL (31.0-37.0); MCV 96.3 fL (80.0-100.0); Mean Platelet Volume 7.9; Monocytes # (A) 0.4 k/uL (0-1.0); Monocytes % (A) 3 %; Neutrophils # (A) 12.1 k/uL (1.3-7.7); Neutrophils % (A) 92 %; Platelet Count 214 k/uL (150-450); RDW 13.8 % (11.5-15.5); WBC 13.3 k/uL (3.8-10.6)
[2021-10-14 18:03] LABS: INR 0.9 (<1.2); Prothrombin Time 9.9 sec (9.0-12.0)
[2021-10-14 18:09] LABS: ALT 20 U/L (4-34); AST 30 U/L (14-36); African American GFR (CKD) >90 (>60 ml/min/1.73 sqM); Albumin 3.8 g/dL (3.5-5.0); Alkaline Phosphatase 97 U/L (38-126); Anion Gap 7 mmol/L; Blood Urea Nitrogen 21 mg/dL (7-17); Calcium 9.6 mg/dL (8.4-10.2); Carbon Dioxide 27 mmol/L (22-30); Chloride 103 mmol/L (98-107); Glucose 313 mg/dL (74-99); Non-African American GFR(CKD) 87 (>60 ml/min/1.73 sqM); Sodium 137 mmol/L (137-145); Total Bilirubin 0.8 mg/dL (0.2-1.3); Total Protein 7.2 g/dL (6.3-8.2)
--- NOTE | 2021-10-14 18:30 | XR ---
EXAMINATION: XR chest 1V DATE AND TIME: 10/14/2021 6:10 PM CLINICAL INDICATION: PHH; difficulty breathing TECHNIQUE: Underpenetrated AP upright portable view COMPARISON: 07/27/2019 FINDINGS: There is consolidative opacity throughout the right lower lung zone, with evidence of partial silhoue tting of the left hemidiaphragm. These changes are consistent with bibasilar infiltrates can correlat e with a clinical diagnosis of bibasilar pneumonia, but with radiographic differential also including pulmonary edema. Pleural spaces difficult to evaluate in this radiographic setting. There is no large pleural effusion . There is no pneumothorax. The cardiac silhouette does not appear to be enlarged on this AP portable radiograph. The skeletal structures and soft tissues are negative for acute findings. IMPRESSION: Prominent bibasilar infiltrates, suspect bibasilar pneumonia.
[2021-10-14] MEDS ORDERED: cefTRIAXone IN SWFI 1,000 MG/10 ML SYRINGE IVP STA (19:23)
--- NOTE | 2021-10-14 20:40 | CT ---
EXAMINATION TYPE: CT chest angio for PE DATE OF EXAM: 10/14/2021 HISTORY: SOB CT DLP: 948.9 mGycm Automated exposure control for dose reduction was used. CONTRAST: CT Chest for pulmonary embolism performed with with IV Contrast, patient injected with 100 mL of Isovue 370. COMPARISON: None FINDINGS: AIRWAYS/LUNGS/PLEURAL SPACES: The airways are unremarkable. There is a small right pleural effusion w ith partial ill-defined consolidation of the right lower lobe. These findings can correlate with a cl inical diagnosis of partial right lower lobe bronchopneumonia. The remainder of the lungs are clear a nd well expanded. There is no left pleural effusion. MEDIASTINUM: There is satisfactory enhancement of the pulmonary artery and its branches, there is no CT evidence for pulmonary embolism. No acute aortic findings. There is mild cardiomegaly. No pericard ial effusion. Prominent coronary calcifications are noted. There are no greater than 1 cm hilar or me diastinal lymph nodes. OTHER: No additional significant abnormality is seen. IMPRESSION: 1. Negative for pulmonary embolism. 2. Right lower lobe airlessness with smaller pleural effusion, suspect right lower lobe bronchopneum onia. 3. Mild cardiomegaly and left and right coronary calcifications.
[2021-10-14] MEDS ORDERED: PNEUMONIA PROTOCOL UTILIZED 1 EACH MISC PO PRN (21:31)
[2021-10-14] MEDS ORDERED: AZITHROMYCIN 500 MG in SODIUM CHLORIDE 0.9% 250 ML IVPB STA (21:31)
[2021-10-14 22:42] LABS: Amorphous Sediment,Urine Few /hpf; Appearance,Urine Cloudy (Clear); Bacteria,Urine Occasional /hpf; Bilirubin,Urine Negative (Negative); Blood,Urine Negative (Negative); Color,Urine Light Yellow; Glucose,Urine (UA) 4+ (Negative); Hyaline Casts,Urine 6 /lpf (0-2); Ketones,Urine 1+ (Negative); Leukocyte Esterase,Urine Negative (Negative); Mucus,Urine Occasional /hpf; Nitrite,Urine Negative (Negative); Protein,Urine 1+ (Negative); RBC,Urine >182 /hpf (0-5); Specific Gravity,Urine 1.016 (1.001-1.035); Squamous Epithelial Cell,Urine 5 /hpf (0-4); Urobilinogen,Urine <2.0 mg/dL (<2.0); WBC,Urine 5 /hpf (0-5)
[2021-10-15] MEDS: SODIUM CHLORIDE 0.9% 1,000 ML IV SCH ×2 (03:02→11:06)
--- NOTE | 2021-10-15 06:08 | XR ---
EXAMINATION TYPE: XR chest 1V DATE OF EXAM: 10/15/2021 CLINICAL HISTORY: Difficulty breathing progress study. TECHNIQUE: Single AP portable upright view of the chest is obtained. COMPARISON: Chest x-ray from one day earlier and older studies. CTA chest July 25, 2019. FINDINGS: Exam suboptimal secondary to large body habitus. Increased central markings bilaterally re demonstrated. Cardiac silhouette size is stable and mildly enlarged. Osseous structures are intact. IMPRESSION: Mild cardiomegaly with moderate central vascular congestion. Possible CHF exacerbation. C orrelate clinically. No significant change from one day earlier.
--- NOTE | 2021-10-15 06:51 | P.CNPUL ---
History of Present Illness Consult date: 10/15/21 Requesting physician: Azeem Brown Reason for consult: dyspnea, cough, hypoxemia, pneumonia, abnormal CXR/CT Chief complaint: Shortness of breath. History of present illness: Pulmonary consult dated 10/15/2021. 71-year-old female with a history of hypertension, hyperlipidemia, diabetes, and obesity. The patient follows with Dr. Gregoria Llanes as a primary. The patient presents to the hospital on October 14, complaining of shortness of breath. The patient states that she's not been feeling well for at least 2 or 3 days prior to admission. In addition to shortness of breath, she complains of cough. She's producing a small amount of phlegm. There is no fever or chills. She denies any chest pain or chest discomfort. The patient does use oxygen at home at 2-3 L/m, 22/05. She does not currently see a lung doctor on a regular basis. She smoked for just a few years when she was much younger. Has no known history of any lung issues. Her N-terminal proBNP on this admission was 580. Her chest x-ray showed right lower lobe pneumonia. Her CAT scan was negative for pulmonary embolism. White count 13.3, hemoglobin 13.4, hematocrit 42.4, and platelet count 214,000. D-dimer was 0.95. Sodium, potassium, chloride, CO2, anion gap, BUN, and creatinine, are all essentially normal. The troponin was 0.014. Testing for saeed virus was negative. Her urine showed greater than 1 82 RBCs, 5 WBCs, and occasional bacteria. Her urine was cloudy. She was really not complaining of any urinary complaints. Review of Systems REVIEW OF SYSTEMS: CONSTITUTIONAL: [Negative.] NEUROLOGIC: [ Negative.] HEENT: [ Negative.] CARDIAC: [Negative.] PULMONARY: Shortness of breath and cough. GI: [Negative.] : [Negative.] RHEUMATOLOGIC: [ Negative.] IMMUNOLOGIC: [ Negative.] ENDOCRINE: [Negative. ] DERMATOLOGIC: [Negative.] Past Medical History Past Medical History: Chest Pain / Angina, Diabetes Mellitus, Hypertension Additional Past Medical History / Comment(s): HEMORRHOID, POSITIVE TEST FOR BLOOD IN STOOL., STATES DIFFICULTY WALKING DISTANCE, BACK PAIN. History of Any Multi-Drug Resistant Organisms: None Reported Past Surgical History: Bariatric Surgery, Heart Catheterization, Tonsillectomy Additional Past Surgical History / Comment(s): LAP BAND INSERTED AND REMOVED (SEPTIC), D & C'S, EXCESS SKIN ON ABDOMEN REMOVED -? PANNICULECTOMY. Past Anesthesia/Blood Transfusion Reactions: No Reported Reaction Past Psychological History: Anxiety Smoking Status: Never smoker Past Alcohol Use History: None Reported Past Drug Use History: None Reported - Past Family History Mother Family Medical History: No Reported History Medications and Allergies Home Medications Medication Instructions Recorded Confirmed Type Ezetimibe [Zetia] 10 mg PO DAILY 06/20/17 10/14/21 History Losartan Potassium [Cozaar] 100 mg PO DAILY 06/20/17 10/14/21 History Metoprolol Succinate (ER) [Toprol 50 mg PO DAILY 06/20/17 10/14/21 History Xl] Rosuvastatin Calcium [Crestor] 40 mg PO DAILY 06/20/17 10/14/21 History Sertraline HCl [Zoloft] 50 mg PO HS 06/20/17 10/14/21 History amLODIPine [Norvasc] 10 mg PO DAILY 06/20/17 10/14/21 History Insulin Regular [HumuLIN R] 5 units SQ AC-SUPPER 10/14/21 10/14/21 History Insulin Regular [HumuLIN R] 20 units SQ AC-BRKFST 10/14/21 10/14/21 History Allergies Allergy/AdvReac Type Severity Reaction Status Date / Time No Known Allergies Allergy Verified 10/14/21 18:23 Physical Exam Osteopathic Statement: *. No significant issues noted on an osteopathic str uctural exam other than those noted in the History and Physical/Consult. Vitals: Vital Signs Temp Pulse Resp BP Pulse Ox 10/15/21 05:56 88 18 155/100 93 L 10/14/21 21:52 72 16 158/71 10/14/21 19:36 106 H 10/14/21 19:21 104 H 10/14/21 16:58 99 F 108 H 24 176/110 100 Intake and Output 10/14/21 10/14/21 10/15/21 14:59 22:59 06:59 Other: Weight 147.418 kg No acute distress, oriented 3. Currently on 4 L nasal cannula. Saturations 95%. No use of accessory muscles or conversational dyspnea. HEENT examination is grossly unremarkable. Neck supple. Full range of motion. No adenopathy thyromegaly or neck vein distention. Cardiovascular examination reveals regular rhythm rate. S1-S2 normal. No S3 or S4. No discernible murmur noted. Heart sounds are distant. Heart rate 88 bpm. Lungs reveal scattered bilateral rhonchi. No wheezes or crackles. Breath sounds equal bilaterally. Abdomen soft bowel sounds are heard. No masses or tenderness. Extremities are intact. Mild lower extremity edema. No cyanosis or clubbing. Skin is without rash or lesion. Neurologic examination is brief but nonfocal. Results - Laboratory Findings CBC and BMP: 10/14/21 17:30 10/14/21 17:30 PT/INR, D-dimer PT 9.9 sec (9.0-12.0) 10/14/21 17:30 INR 0.9 (<1.2) 10/14/21 17:30 D-Dimer 0.95 mg/L FEU (<0.60) H 10/14/21 17:30 Abnormal lab findings: Abnormal Labs 10/14/21 10/14/21 10/14/21 17:30 17:30 17:30 WBC 13.3 H Neutrophils # 12.1 H Lymphocytes # 0.5 L D-Dimer 0.95 H BUN 21 H Glucose 313 H Urine Appearance Urine Protein Urine Glucose (UA) Urine Ketones Urine RBC Ur Squamous Epith Cells Amorphous Sediment Urine Bacteria Hyaline Casts Urine Mucus 10/14/21 21:45 WBC Neutrophils # Lymphocytes # D-Dimer BUN Glucose Urine Appearance Cloudy H Urine Protein 1+ H Urine Glucose (UA) 4+ H Urine Ketones 1+ H Urine RBC >182 H Ur Squamous Epith Cells 5 H Amorphous Sediment Few H Urine Bacteria Occasional H Hyaline Casts 6 H Urine Mucus Occasional H - Diagnostic Findings Chest x-ray: image reviewed CT scan - chest: image reviewed Assessment and Plan Assessment: Community-acquired pneumonia, right lower lobe. History of hypertension. History of hyperlipidemia. Diabetes mellitus. Obesity. Plan: Plan dated 10/15/2021. The patient's chest x-ray, labs, CAT scans, etc., all reviewed. The patient appears to have a right lower lobe pneumonia, seen best on computed tomography scan, right lower lobe. The patient should be on azithromycin and Rocephin. She has no prior history of any lung disease. We will continue to follow make recommendations where appropriate. I will check a pro-calcitonin level. Updrafts are reasonable. Time with Patient: Greater than 30
[2021-10-15] MEDS: IPRATROPIUM-ALBUTEROL 3 ML NEB INHALATION SCH ×4 (08:31→21:31)
[2021-10-15 09:03] LABS: Glucose,Whole Blood 348 mg/dL (75-99)
[2021-10-15] MEDS: EZETIMIBE 10 MG TAB PO SCH (09:17)
[2021-10-15] MEDS: LOSARTAN 50 MG TAB PO SCH (09:17)
[2021-10-15] MEDS: ATORVASTATIN 80 MG TAB PO SCH (09:17)
[2021-10-15] MEDS: amLODIPine 10 MG TAB PO SCH (09:17)
[2021-10-15] MEDS: INSULIN ASPART (NovoLOG) 100 UNIT/ML VIAL SQ SCH ×4 (09:17→20:14)
[2021-10-15] MEDS: METOPROLOL SUCCINATE (ER) 50 MG TAB.ER.24H PO SCH (09:20)
[2021-10-15] MEDS ORDERED: PIPERACILLIN-TAZOBACTAM 3.375 GM in SODIUM CHLORIDE 0.9% 100 ML IVPB ONE (10:45)
[2021-10-15] MEDS: INSULIN REGULAR 100 UNIT/ML VIAL (IM/SQ) SQ SCH (11:03)
[2021-10-15] MEDS: dexAMETHasone 2 MG TAB PO SCH (11:03)
[2021-10-15 12:02] LABS: Glucose,Whole Blood 369 mg/dL (75-99)
--- NOTE | 2021-10-15 13:44 | P.HPIM ---
History of Present Illness H&P Date: 10/15/21 HISTORY OF PRESENT ILLNESS This is a 71-year-old female patient of Dr. Gregoria Llanes with past medical history of hypertension, hyperlipidemia, diabetes mellitus type 2, morbid obesity with BMI 57, remote history of tobacco use. Patient gives history that she developed difficulty breathing with cough congestion and shortness of breath been going on for 3 days. She states she is chronically unable to lay flat and sleeps on several pillows. She denies having any fever or chills. She does not have a nebulizer for CPAP. She does not follow with a pulmonary doctor. She has seen a fiberglass roller in the past, Dr. Plata, but has not followed up in couple years. Patient presented to [facility] emergency center for evaluation. She was found to be afebrile, heart rate 108, blood pressure 176/110, pulse ox 95% on 4 L nasal cannula. EC 13.3, hemoglobin 13.4, platelet count 214. D-dimer 0.95. Electrolytes normal. BUN 21 creatinine 0.7. Blood s ugar 313, Her blood glucose running between 348-369. At home, patient is only on regular insulin 20 units with breakfast and 5 with supper. Chest x-ray reveals prominent bibasilar infiltrates, suspected bibasilar pneumonia. CT angiogram of the chest was negative for pulmonary embolism. Right lower lobe air looseness with smaller pleural effusion, suspect right lower lobe bronchopneumonia. Mild cardiomegaly and left and right coronary calcifications. Repeat chest x-ray this morning reveals mild cardiomegaly with moderate central vascular congestion. Possible CHF exacerbation.He can change from the day earlier. Patient has been seen by Dr. Rao of this morning and continued on antibiotics with azithromycin and Rocephin and ordered pro-calcitonin which came back at 0.7, nebulizer treatments continued. REVIEW OF SYSTEMS Constitutional: No fever, no chills, no night sweats. No weight change. No weakness, Reports fatigue or lethargy. No daytime sleepiness. EENT: No headache. No blurred vision or double vision, no loss of vision. No loss of Hearing, no ringing in the ears, no dizziness. No nasal drainage or congestion. No epistaxis. No sore throat. Lungs: Reports shortness of breath, Reports cough, no sputum production. No wheezing. Cardiovascular: No chest pain, no lower extremity edema. No palpitations. No paroxysmal nocturnal dyspnea. No orthopnea. No lightheadedness or dizziness. No syncopal episodes. Abdominal: No abdominal pain. No nausea, vomiting. No diarrhea. No constipation. No bloody or tarry stools. No loss of appetite. Genitourinary: No dysuria, increased frequency, urgency. No urinary retention. Musculoskeletal: No myalgias. No muscle weakness, no gait dysfunction, no frequent falls. No back pain. No neck pain. Integumentary: No wounds, no lesions. No rash or pruritus. No unusual bruising. No change in hair or nails. Neurologic: No aphasia. No facial droop. No change in mentation. No head injury. No headache. No paralysis. No paresthesia. Psychiatric: No depression. No anxiety. No mood swings. Endocrine: Noted abnormal blood sugars. No weight change. No excessive sweating or thirst. No cold intolerance. SOCIAL HISTORY Patient was a smoker for only a couple years. She denies any alcohol, marijuana or illicit drug use. She lives alone and granddaughter occasionally stays with her, son does housekeeping. Patient is . FAMILY HISTORY Father in his 60s from coronary artery disease. Mother in her late 70s from [place] well receiving hemodialysis, end-stage renal disease, coronary artery disease. Patient has one sister that is from a brain aneurysm. Patient has one sister that is recently had Covid. Patient has a brother with coronary artery disease and chronic back problems. Patient has 2 children with no major medical problems. PHYSICAL EXAMINATION Gen: This is a morbidly obese 71-year-old female. She is resting in the ER stretcher and appears to be comfortable and in no acute distress. No acute respiratory distress is noted. HEENT: Head is atraumatic, normocephalic. Pupils equal, round. Sclerae is anicteric. NECK: Supple. No JVD. No lymphadenopathy. No thyromegaly. LUNGS: Bilateral rhonchi. No intercostal retractions. No accessory muscle usage HEART: Regular rate and rhythm. No murmur. ABDOMEN: Soft. Bowel sounds are present. No masses. No tenderness. EXTREMITIES: Mild bilateral pedal edema which patient states is baseline. No calf tenderness. NEUROLOGICAL: Patient is awake, alert and oriented x3. Cranial nerves 2 through 12 are grossly intact. ASSESSMENT AND PLAN 1. Right-sided pneumonia, probable gram-negative pneumonia. Antibiotics are Rocephin and azithromycin, we have discontinued Rocephin and added in Zosyn, Pulmicort 1 mg twice daily added, continue DuoNeb treatments 4 times daily, continue oxygen as needed.. 2. Chronic hypoxic respiratory failure on 3 L nasal cannula. 3. Diabetes mellitus type 2 uncontrolled with hyperglycemia. Patient is normally on regular insulin 20 units with breakfast and 5 units with supper which we will resume and start patient on Levemir 15 units at bedtime, patient started on NovoLog scale before meals and at bedtime, obtain hemoglobin A1c. 4. Hyperlipidemia. Continue Crestor 40 mg bedtime, Zetia 10 mg daily. 5. Hypertension. Continue losartan 100 mg daily, Toprol-XL 50 mg daily, Norvasc 10 mg daily. 6. Recurrent depression. Continue Zoloft 50 mg at bedtime. 7. GI prophylaxis. Protonix. 8. DVT prophylaxis. Heparin subcu. 9. COVID-19 testing negative. Patient has been hospitalized during a pandemic. Patient will be admitted to the hospital for a minimum of 2 night stay. DISCHARGE PLAN Likely return home with homecare. Impression and plan of care have been directed as dictated by the signing physician. Kristen Mai nurse practitioner acting as scribe for signing physician. Past Medical History Past Medical History: Chest Pain / Angina, Diabetes Mellitus, Hypertension Additional Past Medical History / Comment(s): HEMORRHOID, POSITIVE TEST FOR BLOOD IN STOOL., STATES DIFFICULTY WALKING DISTANCE, BACK PAIN. History of Any Multi-Drug Resistant Organisms: None Reported Past Surgical History: Bariatric Surgery, Heart Catheterization, Tonsillectomy Additional Past Surgical History / Comment(s): LAP BAND INSERTED AND REMOVED (SEPTIC), D & C'S, EXCESS SKIN ON ABDOMEN REMOVED -? PANNICULECTOMY. Past Anesthesia/Blood Transfusion Reactions: No Reported Reaction Past Psychological History: Anxiety Smoking Status: Never smoker Past Alcohol Use History: None Reported Past Drug Use History: None Reported - Past Family History Mother Family Medical History: No Reported History Father Additional Family Medical History / Comment(s): Heart problems. Medications and Allergies Home Medications Medication Instructions Recorded Confirmed Type Ezetimibe [Zetia] 10 mg PO DAILY 06/20/17 10/14/21 History Losartan Potassium [Cozaar] 100 mg PO DAILY 06/20/17 10/14/21 History Metoprolol Succinate (ER) [Toprol 50 mg PO DAILY 06/20/17 10/14/21 History Xl] Rosuvastatin Calcium [Crestor] 40 mg PO DAILY 06/20/17 10/14/21 History Sertraline HCl [Zoloft] 50 mg PO HS 06/20/17 10/14/21 History amLODIPine [Norvasc] 10 mg PO DAILY 06/20/17 10/14/21 History Insulin Regular [HumuLIN R] 5 units SQ AC-SUPPER 10/14/21 10/14/21 History Insulin Regular [HumuLIN R] 20 units SQ AC-BRKFST 10/14/21 10/14/21 History Allergies Allergy/AdvReac Type Severity Reaction Status Date / Time No Known Allergies Allergy Verified 10/14/21 18:23 Physical Exam Vitals: Vital Signs Temp Pulse Pulse Resp BP BP Pulse Ox 10/15/21 08:39 88 16 10/15/21 08:31 87 16 98 10/15/21 08:00 97.6 F 99 16 133/73 92 L 10/15/21 05:56 88 18 155/100 93 L 10/14/21 21:52 72 16 158/71 10/14/21 19:36 106 H 10/14/21 19:21 104 H 10/14/21 16:58 99 F 108 H 24 176/110 100 Intake and Output 10/14/21 10/15/21 10/15/21 22:59 06:59 14:59 Other: Voiding Method External Catheter Weight 147.418 kg Results CBC & Chem 7: 10/14/21 17:30 10/14/21 17:30 Labs: Abnormal Lab Results - Last 24 Hours (Table) 10/14/21 10/14/21 10/14/21 Range/Units 17:30 17:30 17:30 WBC 13.3 H (3.8-10.6) k/uL Neutrophils # 12.1 H (1.3-7.7) k/uL Lymphocytes # 0.5 L (1.0-4.8) k/uL D-Dimer 0.95 H (<0.60) mg/L FEU BUN 21 H (7-17) mg/dL Glucose 313 H (74-99) mg/dL POC Glucose (mg/dL) (75-99) mg/dL Urine Appearance (Clear) Urine Protein (Negative) Urine Glucose (UA) (Negative) Urine Ketones (Negative) Urine RBC (0-5) /hpf Ur Squamous Epith Cells (0-4) /hpf Amorphous Sediment (None) /hpf Urine Bacteria (None) /hpf Hyaline Casts (0-2) /lpf Urine Mucus (None) /hpf 10/14/21 10/15/21 Range/Units 21:45 09:02 WBC (3.8-10.6) k/uL Neutrophils # (1.3-7.7) k/uL Lymphocytes # (1.0-4.8) k/uL D-Dimer (<0.60) mg/L FEU BUN (7-17) mg/dL Glucose (74-99) mg/dL POC Glucose (mg/dL) 348 H (75-99) mg/dL Urine Appearance Cloudy H (Clear) Urine Protein 1+ H (Negative) Urine Glucose (UA) 4+ H (Negative) Urine Ketones 1+ H (Negative) Urine RBC >182 H (0-5) /hpf Ur Squamous Epith Cells 5 H (0-4) /hpf Amorphous Sediment Few H (None) /hpf Urine Bacteria Occasional H (None) /hpf Hyaline Casts 6 H (0-2) /lpf Urine Mucus Occasional H (None) /hpf
[2021-10-15 16:47] LABS: Glucose,Whole Blood 375 mg/dL (75-99)
[2021-10-15] MEDS ORDERED: INSULIN REGULAR 100 UNIT/ML VIAL (IM/SQ) SQ SCH (17:30)
[2021-10-15] MEDS: PIPERACILLIN-TAZOBACTAM 3.375 GM in SODIUM CHLORIDE 0.9% 100 ML IVPB SCH ×2 (17:58→23:06)
--- NOTE | 2021-10-15 18:00 | ECHOF ---
Referral Reason:LVF MEASUREMENTS -------- HEIGHT: 160.0 cm WEIGHT: 147.4 kg BP: RVIDd: 3.9 cm (< 3.3) IVSd: 1.1 cm (0.6 - 1.1) LVIDd: 5.2 cm (3.9 - 5.3) LVPWd: 1.3 cm (0.6 - 1.1) IVSs: 1.5 cm LVIDs: 3.8 cm LVPWs: 1.7 cm LA Diam: 4.3 cm (2.7 - 3.8) Ao Diam: 2.1 cm (2.0 - 3.7) FINDINGS -------- Sinus rhythm. Morbid Obesity This was a techncally difficult study with suboptimal views, , Lumason utilized for enhancement of im ages. The left ventricular size is normal. Overall left ventricular systolic function is low-normal with, an EF between 50 - 55 %. The right ventricle is mild to moderately enlarged. The left atrium is mildly dilated. The right atrial size is normal. 5.0mg OF Lumason UTLIZED: 2 OR MORE WALL SEGMENTS NOT VISUALIZED. The aortic valve was not well visualized. The tricuspid valve was not well visualized. The pulmonic valve was not well visualized. There is no pericardial effusion. CONCLUSIONS -------- 1. Morbid Obesity 2. This was a techncally difficult study with suboptimal views, , Lumason utilized for enhancement of images. 3. The left ventricular size is normal. 4. Overall left ventricular systolic function is low-normal with, an EF between 50 - 55 %. 5. The right ventricle is mild to moderately enlarged. 6. The left atrium is mildly dilated. 7. The right atrial size is normal. 8. 5.0mg OF Lumason UTLIZED: 2 OR MORE WALL SEGMENTS NOT VISUALIZED. 9. The aortic valve was not well visualized. 10. The tricuspid valve was not well visualized. 11. The pulmonic valve was not well visualized. 12. There is no pericardial effusion. TANNING DRUM OPERATOR: Claritza Miller RDCS
[2021-10-15] MEDS: SERTRALINE 50 MG TAB PO SCH (20:14)
[2021-10-15 20:17] LABS: Glucose,Whole Blood 416 mg/dL (75-99)
[2021-10-15] MEDS ORDERED: INSULIN DETEMIR (LEVEMIR) 100 UNIT/ML SYR SQ SCH (21:00)
[2021-10-15] MEDS: BUDESONIDE 1 MG/2 ML NEBU INHALATION SCH (21:31)
[2021-10-16] MEDS: SODIUM CHLORIDE 0.9% 1,000 ML IV SCH ×2 (00:50→07:33)
[2021-10-16] MEDS ORDERED: AZITHROMYCIN 500 MG in SODIUM CHLORIDE 0.9% 250 ML IVPB SCH (03:00)
[2021-10-16 06:56] LABS: Glucose,Whole Blood 459 mg/dL (75-99)
[2021-10-16] MEDS: dexAMETHasone 2 MG TAB PO SCH (07:31)
[2021-10-16] MEDS: amLODIPine 10 MG TAB PO SCH (07:31)
[2021-10-16] MEDS: LOSARTAN 50 MG TAB PO SCH (07:31)
[2021-10-16] MEDS: METOPROLOL SUCCINATE (ER) 50 MG TAB.ER.24H PO SCH (07:31)
[2021-10-16] MEDS: INSULIN REGULAR 100 UNIT/ML VIAL (IM/SQ) SQ SCH ×2 (07:32→17:02)
[2021-10-16] MEDS: PIPERACILLIN-TAZOBACTAM 3.375 GM in SODIUM CHLORIDE 0.9% 100 ML IVPB SCH ×2 (07:32→15:55)
[2021-10-16] MEDS: INSULIN ASPART (NovoLOG) 100 UNIT/ML VIAL SQ SCH ×4 (07:32→21:00)
[2021-10-16] MEDS: ATORVASTATIN 80 MG TAB PO SCH (07:32)
[2021-10-16] MEDS: EZETIMIBE 10 MG TAB PO SCH (07:33)
[2021-10-16] MEDS: BUDESONIDE 1 MG/2 ML NEBU INHALATION SCH ×2 (08:56→21:44)
[2021-10-16] MEDS: IPRATROPIUM-ALBUTEROL 3 ML NEB INHALATION SCH ×4 (08:56→21:44)
[2021-10-16 11:40] LABS: Glucose,Whole Blood 402 mg/dL (75-99)
--- NOTE | 2021-10-16 15:33 | P.PN ---
Subjective Progress Note Date: 10/16/21 Principal diagnosis: Community acquired pneumonia of the right lower lobe 71-year-old female with a history of hypertension, hyperlipidemia, diabetes, and obesity. The patient follows with Dr. Gregoria Llanes as a primary. The patient presents to the hospital on October 14, complaining of shortness of breath. The patient states that she's not been feeling well for at least 2 or 3 days prior to admission. In addition to shortness of breath, she complains of cough. She's producing a small amount of phlegm. There is no fever or chills. She denies any chest pain or chest discomfort. The patient does use oxygen at home at 2-3 L/m, 22/05. She does not currently see a lung doctor on a regular basis. She smoked for just a few years when she was much younger. Has no known history of any lung issues. Her N-terminal proBNP on this admission was 580. Her chest x-ray showed right lower lobe pneumonia. Her CAT scan was negative for pulmonary embolism. White count 13.3, hemoglobin 13.4, hematocrit 42.4, and platelet count 214,000. D-dimer was 0.95. Sodium, potassium, chloride, CO2, anion gap, BUN, and creatinine, are all essentially normal. The troponin was 0.014. Testing for saeed virus was negative. Her urine showed greater than 182 RBCs, 5 WBCs, and occasional bacteria. Her urine was cloudy. She was really not complaining of any urinary complaints. The patient is seen today 10/16/2021 in follow-up on the regular medical floor. She is currently resting comfortably in bed. Awake and alert in no acute distress. Feeling a bit better today compared to yesterday. Saturations in the 90s on 3 L/m per nasal cannula. She has normal saline at 75 MLS per hour. She is continued on antibiotics in the form of Zosyn and azithromycin. She continu es on DuoNeb inhalations, Pulmicort inhalations, Decadron. Glucose 402. Pro- calcitonin 0.70. Objective - Vital Signs Vital signs: Vital Signs Temp 96.5 F L 10/16/21 14:00 Pulse 76 10/16/21 14:00 Resp 18 10/16/21 14:00 BP 129/69 10/16/21 14:00 Pulse Ox 97 10/16/21 14:00 Intake & Output 10/15/21 10/16/21 10/16/21 18:59 06:59 18:59 Intake Total 350 1480 Output Total 1100 800 550 Balance -1100 -450 930 Weight 147.418 kg Intake: Intake, IV Titration 350 Amount Azithromycin 500 mg In 250 Sodium Chloride 0.9% 250 ml @ 250 mls/hr IVPB Q24H [facility] Rx#:[id number] Piperacillin-Tazobactam 3 100 .375 gm In Sodium Chloride 0.9% 100 ml @ 200 mls/hr IVPB ONCE ONE Rx#:[id number] Oral 1480 Output: Urine 1100 800 550 Other: Voiding Method External Catheter External Catheter External Catheter - Exam GENERAL EXAM: Alert, very pleasant, obese 71-year-old female patient, on 3 L nasal cannula, comfortable in no apparent distress. HEAD: Normocephalic. EYES: Normal reaction of pupils, equal size. NOSE: Clear with pink turbinates. THROAT: No erythema or exudates. NECK: No masses, no JVD. CHEST: No chest wall deformity. LUNGS: Equal air entry with crackles in the right posterior base. CVS: S1 and S2 normal with no audible murmur, regular rhythm. ABDOMEN: No hepatosplenomegaly, normal bowel sounds, no guarding or rigidity. SPINE: No scoliosis or deformity SKIN: No rashes CENTRAL NERVOUS SYSTEM: No focal deficits, tone is normal in all 4 extremities. EXTREMITIES: There is no peripheral edema. No clubbing, no cyanosis. Peripheral pulses are intact. - Labs CBC & Chem 7: 10/14/21 17:30 10/14/21 17:30 Labs: Abnormal Lab Results - Last 24 Hours (Table) 10/14/21 10/15/21 10/15/21 Range/Units 17:30 16:46 20:11 POC Glucose (mg/dL) 375 H 416 H (75-99) mg/dL Hemoglobin A1c 6.1 H (4.0-6.0) % 10/16/21 10/16/21 Range/Units 06:55 11:38 POC Glucose (mg/dL) 459 H 402 H (75-99) mg/dL Hemoglobin A1c (4.0-6.0) % Microbiology - Last 24 Hours (Table) 10/15/21 02:30 Blood Culture Gram Stain - Preliminary Blood Blood Culture - Preliminary Staphylococcus epidermidis 10/14/21 Unknown Gram Stain - Preliminary Sputum Sputum Culture - Preliminary 10/15/21 02:15 Blood Culture - Preliminary Blood No Growth after 24 hours 10/15/21 02:30 Blood Culture - Final Blood Assessment and Plan Assessment: 1 Acute hypoxemic respiratory failure secondary to an acute community-acquired pneumonia, right lower lobe. 2 History of hypertension. 3 History of hyperlipidemia. 4 Diabetes mellitus. 5 Obesity. Plan: The patient was seen and evaluated Stable and currently on 3 L nasal cannula Continue Zosyn, discontinue azithromycin Continue bronchodilators Titrate the FiO2 as tolerated We will continue to follow I, the cosigning physician, performed a history & physical examination of the patient. Lungs sounds crackles in the right lung base. Maintaining good O2 saturations in the 90s on 3 L/m per nasal cannula. I discussed the assessment and plan of care with my nurse practitioner, Shruti Martines. I attest to the above note as dictated by her.
--- NOTE | 2021-10-16 16:17 | P.PN ---
Subjective Progress Note Date: 10/16/21 HISTORY OF PRESENT ILLNESS This is a 71-year-old female patient of Dr. Gregoria Llanes with past medical history of hypertension, hyperlipidemia, diabetes mellitus type 2, morbid obesity with BMI 57, remote history of tobacco use. Patient gives history that she developed difficulty breathing with cough congestion and shortness of breath been going on for 3 days. She states she is chronically unable to lay flat and sleeps on several pillows. She denies having any fever or chills. She does not have a nebulizer for CPAP. She does not follow with a pulmonary doctor. She has seen a snow removal supervisor in the past, Dr. Plata, but has not followed up in couple years. Patient presented to [facility] emergency center for evaluation. She was found to be afebrile, heart rate 108, blood pressure 176/110, pulse ox 95% on 4 L nasal cannula. EC 13.3, hemoglobin 13.4, platelet count 214. D-dimer 0.95. Electrolytes normal. BUN 21 creatinine 0.7. Blood sugar 313, Her blood glucose running between 348-369. At home, patient is only on regular insulin 20 units with breakfast and 5 with supper. Chest x-ray reveals prominent bibasilar infiltrates, suspected bibasilar pneumonia. CT angiogram of the chest was negative for pulmonary embolism. Right lower lobe air looseness with smaller pleural effusion, suspect right lower lobe bronchopneumonia. Mild cardiomegaly and left and right coronary calcifications. Repeat chest x-ray this morning reveals mild cardiomegaly with moderate central vascular congestion. Possible CHF exacerbation.He can change from the day earlier. Patient has been seen by Dr. Rao of this morning and continued on antibiotics with azithromycin and Rocephin and ordered pro-calcitonin which came back at 0.7, nebulizer treatments continued. : Patient still with shortness of breath with exertion today, and some complaints of dyspnea, and edema bilateral legs, 2+, he has chronically O2 at 3 L at home, blood sugars are elevated today, Levemir added at 15 units, A1c at home is 6.1, however sugars are running on the high 200 300 here, we'll going to increase NovoLog to 8 units pre-meal, 8 units at lunchtime, patient's and dexamethasone 6 milligrams daily, no change with fasting insulin at 20 units. IV Lasix given for the next 2 days, 40 mg every 12 potassium supplementation. REVIEW OF SYSTEMS Constitutional: No fever, no chills, no night sweats. No weight change. No weakness, Reports fatigue or lethargy. No daytime sleepiness. EENT: No headache. No blurred vision or double vision, no loss of vision. No loss of Hearing, no ringing in the ears, no dizziness. No nasal drainage or congestion. No epistaxis. No sore throat. Lungs: Reports shortness of breath, Reports cough, no sputum production. No wheezing. Cardiovascular: No chest pain, no lower extremity edema. No palpitations. No paroxysmal nocturnal dyspnea. No orthopnea. No lightheadedness or dizziness. No syncopal episodes. Abdominal: No abdominal pain. No nausea, vomiting. No diarrhea. No constipation. No bloody or tarry stools. No loss of appetite. Genitourinary: No dysuria, increased frequency, urgency. No urinary retention. Musculoskeletal: No myalgias. No muscle weakness, no gait dysfunction, no frequent falls. No back pain. No neck pain. Integumentary: No wounds, no lesions. No rash or pruritus. No unusual bruising. No change in hair or nails. Neurologic: No aphasia. No facial droop. No change in mentation. No head injury. No headache. No paralysis. No paresthesia. Psychiatric: No depression. No anxiety. No mood swings. Endocrine: Noted abnormal blood sugars. No weight change. No excessive sweating or thirst. No cold intolerance. PHYSICAL EXAMINATION Gen: This is a morbidly obese 71-year-old female. She is resting in the ER stretcher and appears to be comfortable and in no acute distress. No acute respiratory distress is noted. HEENT: Head is atraumatic, normocephalic. Pupils equal, round. Sclerae is anicteric. NECK: Supple. No JVD. No lymphadenopathy. No thyromegaly. LUNGS: Bilateral rhonchi. No intercostal retractions. No accessory muscle usage HEART: Regular rate and rhythm. No murmur. ABDOMEN: Soft. Bowel sounds are present. No masses. No tenderness. EXTREMITIES: Mild bilateral pedal edema which patient states is baseline. No calf tenderness. NEUROLOGICAL: Patient is awake, alert and oriented x3. Cranial nerves 2 through 12 are grossly intact. ASSESSMENT AND PLAN 1. Right-sided pneumonia, probable gram-negative pneumonia. Antibiotics are Rocephin and azithromycin, we have discontinued Rocephin and added in Zosyn, Pulmicort 1 mg twice daily added, continue DuoNeb treatments 4 times daily, continue oxygen as needed.. 2. Chronic hypoxic respiratory failure on 3 L nasal cannula. 3. Diabetes mellitus type 2 uncontrolled with hyperglycemia. Patient is normally on regular insulin 20 units with breakfast and 5 units with supper which we will resume and start patient on Levemir 15 units at bedtime, patient started on NovoLog scale before meals and at bedtime, obtain hemoglobin A1c. 4. Hyperlipidemia. Continue Crestor 40 mg bedtime, Zetia 10 mg daily. 5. Hypertension. Continue losartan 100 mg daily, Toprol-XL 50 mg daily, Norvasc 10 mg daily. 6. Recurrent depression. Continue Zoloft 50 mg at bedtime. 7. GI prophylaxis. Protonix. 8. DVT prophylaxis. Heparin subcu. 9. COVID-19 testing negative. Patient has been hospitalized during a pandemic. Patient will be admitted to the hospital for a minimum of 2 night stay. DISCHARGE PLAN Likely return home with homecare. Laboratory Results WBC 13.3 k/uL (3.8-10.6) H 10/14/21 17:30 RBC 4.40 m/uL (3.80-5.40) 10/14/21 17:30 Hgb 13.4 gm/dL (11.4-16.0) 10/14/21 17:30 Hct 42.4 % (34.0-46.0) 10/14/21 17:30 MCV 96.3 fL (80.0-100.0) 10/14/21 17:30 MCH 30.4 pg (25.0-35.0) 10/14/21 17:30 MCHC 31.6 g/dL (31.0-37.0) 10/14/21 17:30 RDW 13.8 % (11.5-15.5) 10/14/21 17:30 Plt Count 214 k/uL (150-450) 10/14/21 17:30 MPV 7.9 10/14/21 17:30 Neutrophils % 92 % 10/14/21 17:30 Lymphocytes % 4 % 10/14/21 17:30 Monocytes % 3 % 10/14/21 17:30 Eosinophils % 1 % 10/14/21 17:30 Basophils % 0 % 10/14/21 17:30 Neutrophils # 12.1 k/uL (1.3-7.7) H 10/14/21 17:30 Lymphocytes # 0.5 k/uL (1.0-4.8) L 10/14/21 17:30 Monocytes # 0.4 k/uL (0-1.0) 10/14/21 17:30 Eosinophils # 0.2 k/uL (0-0.7) 10/14/21 17:30 Basophils # 0.0 k/uL (0-0.2) 10/14/21 17:30 Hypochromasia Slight 10/14/21 17:30 PT 9.9 sec (9.0-12.0) 10/14/21 17:30 INR 0.9 (<1.2) 10/14/21 17:30 APTT 23.0 sec (22.0-30.0) 10/14/21 17:30 D-Dimer 0.95 mg/L FEU (<0.60) H 10/14/21 17:30 Sodium 137 mmol/L (137-145) 10/14/21 17:30 Potassium 5.0 mmol/L (3.5-5.1) 10/14/21 17:30 Chloride 103 mmol/L (98-107) 10/14/21 17:30 Carbon Dioxide 27 mmol/L (22-30) 10/14/21 17:30 Anion Gap 7 mmol/L 10/14/21 17:30 BUN 21 mg/dL (7-17) H 10/14/21 17:30 Creatinine 0.70 mg/dL (0.52-1.04) 10/14/21 17:30 Est GFR (CKD-EPI)AfAm >90 (>60 ml/min/1.73 sqM) 10/14/21 17:30 Est GFR (CKD-EPI)NonAf 87 (>60 ml/min/1.73 sqM) 10/14/21 17:30 Glucose 313 mg/dL (74-99) H 10/14/21 17:30 POC Glucose (mg/dL) 402 mg/dL (75-99) H 10/16/21 11:38 POC Glu Rn Spine ID Gricel Jay 10/16/21 11:[address] Glu mg/dL 128 10/14/21 17:30 Hemoglobin A1c 6.1 % (4.0-6.0) H 10/14/21 17:30 Plasma Lactic Acid Reynaldo 1.3 mmol/L (0.7-2.0) 10/14/21 17:30 Calcium 9.6 mg/dL (8.4-10.2) 10/14/21 17:30 Total Bilirubin 0.8 mg/dL (0.2-1.3) 10/14/21 17:30 AST 30 U/L (14-36) 10/14/21 17:30 ALT 20 U/L (4-34) 10/14/21 17:30 Alkaline Phosphatase 97 U/L (38-126) 10/14/21 17:30 Troponin I 0.014 ng/mL (0.000-0.034) 10/14/21 17:30 NT-Pro-B Natriuret Pep 580 pg/mL 10/14/21 17:30 Total Protein 7.2 g/dL (6.3-8.2) 10/14/21 17:30 Albumin 3.8 g/dL (3.5-5.0) 10/14/21 17:30 Procalcitonin 0.70 ng/mL (0.02-0.09) H 10/15/21 07:19 Urine Color Light Yellow 10/14/21 21:45 Urine Appearance Cloudy (Clear) H 10/14/21 21:45 Urine pH 7.0 (5.0-8.0) 10/14/21 21:45 Ur Specific Mckenney 1.016 (1.001-1.035) 10/14/21 21:45 Urine Protein 1+ (Negative) H 10/14/21 21:45 Urine Glucose (UA) 4+ (Negative) H 10/14/21 21:45 Urine Ketones 1+ (Negative) H 10/14/21 21:45 Urine Blood Negative (Negative) 10/14/21 21:45 Urine Nitrite Negative (Negative) 10/14/21 21:45 Urine Bilirubin Negative (Negative) 10/14/21 21:45 Urine Urobilinogen <2.0 mg/dL (<2.0) 10/14/21 21:45 Ur Leukocyte Esterase Negative (Negative) 10/14/21 21:45 Urine RBC >182 /hpf (0-5) H 10/14/21 21:45 Urine WBC 5 /hpf (0-5) 10/14/21 21:45 Ur Squamous Epith Cells 5 /hpf (0-4) H 10/14/21 21:45 Amorphous Sediment Few /hpf (None) H 10/14/21 21:45 Urine Bacteria Occasional /hpf (None) H 10/14/21 21:45 Hyaline Casts 6 /lpf (0-2) H 10/14/21 21:45 Urine Mucus Occasional /hpf (None) H 10/14/21 21:45 Coronavirus (PCR) Not Detected (Not Detectd) 10/14/21 18:08 Vital Signs - 24 hr 10/15/21 10/15/21 10/15/21 16:22 16:30 19:16 Temperature 98.1 F Pulse Rate 84 86 Pulse Rate [ 88 Right] Respiratory 16 Rate Blood Pressure 150/71 [Right Arm] O2 Sat by Pulse 96 Oximetry 10/15/21 10/15/21 10/16/21 21:31 21:45 01:37 Temperature 97.9 F Pulse Rate 80 86 Pulse Rate [ 82 Right] Respiratory 22 Rate Blood Pressure 137/71 [Right Arm] O2 Sat by Pulse 97 Oximetry 10/16/21 10/16/21 10/16/21 05:26 08:00 10:57 Temperature 97.9 F 97.6 F Pulse Rate 79 Pulse Rate [ 84 82 Right] Respiratory 20 20 Rate Blood Pressure 167/83 131/74 [Right Arm] O2 Sat by Pulse 97 96 100 Oximetry 10/16/21 10/16/21 10/16/21 11:06 11:51 14:00 Temperature 98.6 F 96.5 F L Pulse Rate 82 Pulse Rate [ 81 76 Right] Respiratory 16 18 Rate Blood Pressure 134/70 129/69 [Right Arm] O2 Sat by Pulse 95 97 Oximetry Objective - Vital Signs Vital signs: Vital Signs Temp 96.5 F L 10/16/21 14:00 Pulse 76 10/16/21 14:00 Resp 18 10/16/21 14:00 BP 129/69 10/16/21 14:00 Pulse Ox 97 10/16/21 14:00 Intake & Output 10/15/21 10/16/21 10/16/21 18:59 06:59 18:59 Intake Total 350 1480 Output Total 1100 800 550 Balance -1100 -450 930 Weight 147.418 kg Intake: Intake, IV Titration 350 Amount Azithromycin 500 mg In 250 Sodium Chloride 0.9% 250 ml @ 250 mls/hr IVPB Q24H [facility] Rx#:[id number] Piperacillin-Tazobactam 3 100 .375 gm In Sodium Chloride 0.9% 100 ml @ 200 mls/hr IVPB ONCE ONE Rx#:[id number] Oral 1480 Output: Urine 1100 800 550 Other: Voiding Method External Catheter External Catheter External Catheter - Labs CBC & Chem 7: 10/14/21 17:30 10/14/21 17:30 Labs: Abnormal Lab Results - Last 24 Hours (Table) 10/14/21 10/15/21 10/15/21 Range/Units 17:30 16:46 20:11 POC Glucose (mg/dL) 375 H 416 H (75-99) mg/dL Hemoglobin A1c 6.1 H (4.0-6.0) % 10/16/21 10/16/21 Range/Units 06:55 11:38 POC Glucose (mg/dL) 459 H 402 H (75-99) mg/dL Hemoglobin A1c (4.0-6.0) % Microbiology - Last 24 Hours (Table) 10/15/21 02:30 Blood Culture Gram Stain - Preliminary Blood Blood Culture - Preliminary Staphylococcus epidermidis 10/14/21 Unknown Gram Stain - Preliminary Sputum Sputum Culture - Preliminary 10/15/21 02:15 Blood Culture - Preliminary Blood No Growth after 24 hours 10/15/21 02:30 Blood Culture - Final Blood
[2021-10-16 16:28] LABS: Glucose,Whole Blood 412 mg/dL (75-99)
[2021-10-16] MEDS: FUROSEMIDE 10 MG/ML 4 ML VIAL IV SCH (17:00)
[2021-10-16 19:58] LABS: Glucose,Whole Blood 405 mg/dL (75-99)
[2021-10-16] MEDS: SERTRALINE 50 MG TAB PO SCH (21:00)
[2021-10-16] MEDS: INSULIN DETEMIR (LEVEMIR) 100 UNIT/ML SYR SQ SCH (21:00)
[2021-10-17] MEDS: PIPERACILLIN-TAZOBACTAM 3.375 GM in SODIUM CHLORIDE 0.9% 100 ML IVPB SCH ×4 (00:05→23:57)
[2021-10-17] MEDS: SODIUM CHLORIDE 0.9% 1,000 ML IV SCH ×2 (05:15→14:51)
[2021-10-17 07:19] LABS: Glucose,Whole Blood 312 mg/dL (75-99)
[2021-10-17] MEDS: METOPROLOL SUCCINATE (ER) 50 MG TAB.ER.24H PO SCH (08:24)
[2021-10-17] MEDS: dexAMETHasone 2 MG TAB PO SCH (08:24)
[2021-10-17] MEDS: ATORVASTATIN 80 MG TAB PO SCH (08:24)
[2021-10-17] MEDS: amLODIPine 10 MG TAB PO SCH (08:24)
[2021-10-17] MEDS: INSULIN ASPART (NovoLOG) 100 UNIT/ML VIAL SQ SCH ×4 (08:24→20:59)
[2021-10-17] MEDS: EZETIMIBE 10 MG TAB PO SCH (08:24)
[2021-10-17] MEDS: LOSARTAN 50 MG TAB PO SCH (08:24)
[2021-10-17] MEDS: FUROSEMIDE 10 MG/ML 4 ML VIAL IV SCH (08:25)
[2021-10-17] MEDS: INSULIN REGULAR 100 UNIT/ML VIAL (IM/SQ) SQ SCH ×2 (08:25→17:05)
[2021-10-17] MEDS: IPRATROPIUM-ALBUTEROL 3 ML NEB INHALATION SCH ×4 (09:04→21:18)
[2021-10-17] MEDS: BUDESONIDE 1 MG/2 ML NEBU INHALATION SCH ×2 (09:04→21:18)
[2021-10-17 11:31] LABS: Glucose,Whole Blood 337 mg/dL (75-99)
--- NOTE | 2021-10-17 14:42 | P.PN ---
Subjective Progress Note Date: 10/17/21 HISTORY OF PRESENT ILLNESS This is a 71-year-old female patient of Dr. Gregoria Llanes with past medical history of hypertension, hyperlipidemia, diabetes mellitus type 2, morbid obesity with BMI 57, remote history of tobacco use. Patient gives history that she developed difficulty breathing with cough congestion and shortness of breath been going on for 3 days. She states she is chronically unable to lay flat and sleeps on several pillows. She denies having any fever or chills. She does not have a nebulizer for CPAP. She does not follow with a pulmonary doctor. She has seen a volunteer fire fighter in the past, Dr. Plata, but has not followed up in couple years. Patient presented to [facility] for evaluation. She was found to be afebrile, heart rate 108, blood pressure 176/110, pulse ox 95% on 4 L nasal cannula. EC 13.3, hemoglobin 13.4, platelet count 214. D-dimer 0.95. Electrolytes normal. BUN 21 creatinine 0.7. Blood sugar 313, Her blood glucose running between 348-369. At home, patient is only on regular insulin 20 units with breakfast and 5 with supper. Chest x-ray reveals prominent bibasilar infiltrates, suspected bibasilar pneumonia. CT angiogram of the chest was negative for pulmonary embolism. Right lower lobe air looseness with smaller pleural effusion, suspect right lower lobe bronchopneumonia. Mild cardiomegaly and left and right coronary calcifications. Repeat chest x-ray this morning reveals mild cardiomegaly with moderate central vascular congestion. Possible CHF exacerbation.He can change from the day earlier. Patient has been seen by Dr. Rao of this morning and continued on antibiotics with azithromycin and Rocephin and ordered pro-calcitonin which came back at 0.7, nebulizer treatments continued. : Patient still with shortness of breath with exertion today, and some complaints of dyspnea, and edema bilateral legs, 2+, he has chronically O2 at 3 L at home, blood sugars are elevated today, Levemir added at 15 units, A1c at home is 6.1, however sugars are running on the high 200 300 here, we'll going to increase NovoLog to 8 units pre-meal, 8 units at lunchtime, patient's and dexamethasone 6 milligrams daily, no change with fasting insulin at 20 units. IV Lasix given for the next 2 days, 40 mg every 12 potassium supplementation. 10/17: Patient is doing much better today, has improvement of lower extremity edema, still noted at class II, on Lasix IV, has baseline O2 at 3 L nasal cannula, PT OT is requested, to evaluate for ongoing debility, anticipate discharge to home, dexamethasone is discontinued today, with increased Levemir 20 units last night. Blood sugar 300-400, sputum cultures currently pending, possible discharge in next 24-48 hrs. , REVIEW OF SYSTEMS Constitutional: No fever, no chills, no night sweats. No weight change. No weakness, Reports fatigue or lethargy. No daytime sleepiness. EENT: No headache. No blurred vision or double vision, no loss of vision. No loss of Hearing, no ringing in the ears, no dizziness. No nasal drainage or congestion. No epistaxis. No sore throat. Lungs: Reports shortness of breath, Reports cough, no sputum production. No wheezing. Cardiovascular: No chest pain, no lower extremity edema. No palpitations. No paroxysmal nocturnal dyspnea. No orthopnea. No lightheadedness or dizziness. No syncopal episodes. Abdominal: No abdominal pain. No nausea, vomiting. No diarrhea. No constipation. No bloody or tarry stools. No loss of appetite. Genitourinary: No dysuria, increased frequency, urgency. No urinary retention. Musculoskeletal: No myalgias. No muscle weakness, no gait dysfunction, no frequent falls. No back pain. No neck pain. Integumentary: No wounds, no lesions. No rash or pruritus. No unusual bruising. No change in hair or nails. Neurologic: No aphasia. No facial droop. No change in mentation. No head injury. No headache. No paralysis. No paresthesia. Psychiatric: No depression. No anxiety. No mood swings. Endocrine: Noted abnormal blood sugars. No weight change. No excessive sweating or thirst. No cold intolerance. PHYSICAL EXAMINATION Gen: This is a morbidly obese 71-year-old female. She is resting in the ER stretcher and appears to be comfortable and in no acute distress. No acute respiratory distress is noted. HEENT: Head is atraumatic, normocephalic. Pupils equal, round. Sclerae is a nicteric. NECK: Supple. No JVD. No lymphadenopathy. No thyromegaly. LUNGS: Bilateral rhonchi. No intercostal retractions. No accessory muscle usage HEART: Regular rate and rhythm. No murmur. ABDOMEN: Soft. Bowel sounds are present. No masses. No tenderness. EXTREMITIES: Mild bilateral pedal edema which patient states is baseline. No calf tenderness. NEUROLOGICAL: Patient is awake, alert and oriented x3. Cranial nerves 2 through 12 are grossly intact. ASSESSMENT AND PLAN 1. Right-sided pneumonia, probable gram-negative pneumonia. Antibiotics are Rocephin and azithromycin, we have discontinued Rocephin and added in Zosyn, Pulmicort 1 mg twice daily added, continue DuoNeb treatments 4 times daily, continue oxygen as needed.. 2. Chronic hypoxic respiratory failure on 3 L nasal cannula. 3. Diabetes mellitus type 2 uncontrolled with hyperglycemia. Patient is normally on regular insulin 20 units with breakfast and 5 units with supper which we will resume and start patient on Levemir 15 units at bedtime, patient started on NovoLog scale before meals and at bedtime, obtain hemoglobin A1c. 4. Hyperlipidemia. Continue Crestor 40 mg bedtime, Zetia 10 mg daily. 5. Hypertension. Continue losartan 100 mg daily, Toprol-XL 50 mg daily, Norvasc 10 mg daily. 6. Recurrent depression. Continue Zoloft 50 mg at bedtime. 7. GI prophylaxis. Protonix. 8. DVT prophylaxis. Heparin subcu. 9. COVID-19 testing negative. Patient has been hospitalized during a pandemic. Patient will be admitted to the hospital for a minimum of 2 night stay. DISCHARGE PLAN Likely return home with homecare. Laboratory Results - Last 24 Hours 10/16/21 10/16/21 10/17/21 16:24 19:57 07:18 POC Glucose (mg/dL) 412 H 405 H 312 H POC Glu Rapid Extractor Operator Rosa Sparks Alissa Davis, Sharay 10/17/21 11:29 POC Glucose (mg/dL) 337 H POC Glu Rapid Extractor Operator Rosa Sparks Vital Signs - 24 hr 10/16/21 10/16/21 10/16/21 17:06 17:14 19:12 Temperature 98.1 F Pulse Rate 78 70 Pulse Rate [ 85 Right] Respiratory 17 Rate Blood Pressure 138/62 [Right Arm] O2 Sat by Pulse 96 Oximetry 10/16/21 10/16/21 10/17/21 21:46 21:58 02:00 Temperature 98.0 F Pulse Rate 78 78 Pulse Rate [ 80 Right] Respiratory 16 Rate Blood Pressure 146/61 [Right Arm] O2 Sat by Pulse 97 Oximetry 10/17/21 10/17/21 10/17/21 05:00 07:51 09:04 Temperature 97.8 F Pulse Rate 80 Pulse Rate [ 77 Right] Respiratory 20 Rate Blood Pressure 151/76 [Right Arm] O2 Sat by Pulse 97 97 Oximetry 10/17/21 10/17/21 10/17/21 09:27 12:50 13:03 Temperature Pulse Rate 82 72 73 Pulse Rate [ Right] Respiratory Rate Blood Pressure [Right Arm] O2 Sat by Pulse Oximetry Active Medication List Albuterol/Ipratropium (Ipratropium-Albuterol 3 Ml Neb) 3 ml INHALATION RT-QID [facility] Admin: 10/17/21 12:50 Dose: 3 ml Documented by: Admin: 10/17/21 09:04 Dose: 3 ml Documented by: Admin: 10/16/21 21:44 Dose: 3 ml Documented by: Admin: 10/16/21 17:06 Dose: 3 ml Documented by: Admin: 10/16/21 10:56 Dose: 3 ml Documented by: Admin: 10/16/21 08:56 Dose: Not Given Documented by: MIKE Non-Admin Reason: Patient Refused Admin: 10/15/21 21:31 Dose: 3 ml Documented by: Admin: 10/15/21 16:22 Dose: 3 ml Documented by: Admin: 10/15/21 11:13 Dose: Not Given Documented by: KODAK Non-Admin Reason: pt not available at this time Admin: 10/15/21 08:31 Dose: 3 ml Documented by: KODAK Amlodipine Besylate (Amlodipine 10 Mg Tab) 10 mg PO DAILY [facility] Admin: 10/17/21 08:24 Dose: 10 mg Documented by: Admin: 10/16/21 07:31 Dose: 10 mg Documented by: Admin: 10/15/21 09:17 Dose: 10 mg Documented by: ALLI Atorvastatin Calcium (Atorvastatin 80 Mg Tab) 80 mg PO DAILY [facility] Last Admin: 10/17/21 08:24 Dose: 80 mg Documented by: Admin: 10/16/21 07:32 Dose: 80 mg Documented by: Admin: 10/15/21 09:17 Dose: 80 mg Documented by: ALLI Budesonide (Budesonide 1 Mg/2 Ml Nebu) 1 mg INHALATION RT-BID [facility] Last Admin: 10/17/21 09:04 Dose: 1 mg Documented by: Admin: 10/16/21 21:44 Dose: 1 mg Documented by: Admin: 10/16/21 08:56 Dose: Not Given Documented by: MIKE Non-Admin Reason: Patient Refused Admin: 10/15/21 21:31 Dose: 1 mg Documented by: GERMAN Dexamethasone (Dexamethasone 2 Mg Tab) 6 mg PO DAILY [facility] Last Admin: 10/17/21 08:24 Dose: 6 mg Documented by: Admin: 10/16/21 07:31 Dose: 6 mg Documented by: Admin: 10/15/21 11:03 Dose: 6 mg Documented by: ALLI Ezetimibe (Ezetimibe 10 Mg Tab) 10 mg PO DAILY [facility] Last Admin: 10/17/21 08:24 Dose: 10 mg Documented by: Admin: 10/16/21 07:33 Dose: 10 mg Documented by: Admin: 10/15/21 09:17 Dose: 10 mg Documented by: ALLI Furosemide (Furosemide 10 Mg/Ml 4 Ml Vial) 40 mg IV DAILY [facility] Last Admin: 10/17/21 08:25 Dose: 40 mg Documented by: Admin: 10/16/21 17:00 Dose: 40 mg Documented by: HALI Sodium Chloride (Saline 0.9%) 1,000 mls @ 75 mls/hr IV .[id number] [facility] Last Admin: 10/17/21 05:15 Dose: Not Given Documented by: DENNY Non-Admin Reason: Previous bag infusing Admin: 10/16/21 07:33 Dose: 75 mls/hr Documented by: Admin: 10/16/21 00:50 Dose: Not Given Documented by: PERLITA Non-Admin Reason: given Admin: 10/15/21 11:06 Dose: 75 mls/hr Documented by: Admin: 10/15/21 03:02 Dose: 75 mls/hr Documented by: DORITA Piperacillin Sod/Tazobactam (Sod 3.375 gm/ Sodium Chloride) 100 mls @ 25 mls/hr IVPB Q8HR [facility] Last Admin: 10/17/21 08:25 Dose: 25 mls/hr Documented by: Admin: 10/17/21 00:05 Dose: 25 mls/hr Documented by: Admin: 10/16/21 15:55 Dose: 25 mls/hr Documented by: Admin: 10/16/21 07:32 Dose: 25 mls/hr Documented by: Admin: 10/15/21 23:06 Dose: 25 mls/hr Documented by: Admin: 10/15/21 17:58 Dose: 25 mls/hr Documented by: BOB Insulin Aspart (Insulin Aspart (Novolog) 100 Unit/Ml Vial) 0 unit SQ [facility]; Protocol Last Admin: 10/17/21 12:05 Dose: 9 unit Documented by: Admin: 10/17/21 08:24 Dose: 8 unit Documented by: Admin: 10/16/21 21:00 Dose: 8 unit Documented by: DENNY Comments: per physician Admin: 10/16/21 17:01 Dose: 13 unit Documented by: Admin: 10/16/21 12:11 Dose: 13 unit Documented by: Admin: 10/16/21 07:32 Dose: 14 unit Documented by: Admin: 10/15/21 20:14 Dose: 12 unit Documented by: Admin: 10/15/21 17:59 Dose: 10 unit Documented by: Admin: 10/15/21 12:13 Dose: 10 unit Documented by: Admin: 10/15/21 09:17 Dose: 9 unit Documented by: ALLI Insulin Detemir (Insulin Detemir (Levemir) 100 Unit/Ml Syr) 20 unit SQ [facility] Last Admin: 10/16/21 21:00 Dose: 20 unit Documented by: DENNY Insulin Human Regular (Insulin Regular 100 Unit/Ml Vial (Im/Sq)) 20 unit SQ AC-BRKFST [facility] Last Admin: 10/17/21 08:25 Dose: 20 unit Documented by: Admin: 10/16/21 07:32 Dose: 20 unit Documented by: Admin: 10/15/21 11:03 Dose: 20 unit Documented by: ALLI Insulin Human Regular (Insulin Regular 100 Unit/Ml Vial (Im/Sq)) 8 unit SQ AC- SUPPER [facility] Last Admin: 10/16/21 17:02 Dose: 8 unit Documented by: HALI Losartan Potassium (Losartan 50 Mg Tab) 100 mg PO DAILY [facility] Last Admin: 10/17/21 08:24 Dose: 100 mg Documented by: Admin: 10/16/21 07:31 Dose: 100 mg Documented by: Admin: 10/15/21 09:17 Dose: 100 mg Documented by: ALLI Metoprolol Succinate (Metoprolol Succinate (Er) 50 Mg Tab.Er.24h) 50 mg PO DAILY [facility] Last Admin: 10/17/21 08:24 Dose: 50 mg Documented by: Admin: 10/16/21 07:31 Dose: 50 mg Documented by: Admin: 10/15/21 09:20 Dose: 50 mg Documented by: ALLI Miscellaneous Information (Pneumonia Protocol Utilized 1 Each Misc) 1 each PO ONCE PRN PRN Reason: Per Protocol Sertraline HCl (Sertraline 50 Mg Tab) 50 mg PO [facility] Last Admin: 10/16/21 21:00 Dose: 50 mg Documented by: Admin: 10/15/21 20:14 Dose: 50 mg Documented by: PERLITA Discontinued Medications Albuterol/Ipratropium (Ipratropium-Albuterol 3 Ml Neb) 3 ml INHALATION ONCE STA Stop: 10/14/21 17:21 Last Admin: 10/14/21 19:21 Dose: 3 ml Documented by: JASPAL Ceftriaxone Sodium (Ceftriaxone In [facility] 1,000 Mg/10 Ml Syringe) 1,000 mg IVP ONCE STA Stop: 10/14/21 19:24 Last Admin: 10/15/21 02:32 Dose: 1,000 mg Documented by: DORITA Azithromycin 500 mg/ Sodium (Chloride) 250 mls @ 250 mls/hr IVPB ONCE STA Stop: 10/14/21 22:30 Last Admin: 10/15/21 03:01 Dose: 250 mls/hr Documented by: DORITA Ceftriaxone Sodium 1 gm/ (Sodium Chloride) 50 mls @ 100 mls/hr IVPB ONCE STA Stop: 10/14/21 22:00 Last Admin: 10/15/21 02:33 Dose: 100 mls/hr Documented by: DORITA Ceftriaxone Sodium 2 gm/ (Sodium Chloride) 50 mls @ 100 mls/hr IVPB Q24H SHANICE Stop: 10/19/21 02:29 Azithromycin 500 mg/ Sodium (Chloride) 250 mls @ 250 mls/hr IVPB Q24H [facility] Stop: 10/19/21 03:59 Last Admin: 10/16/21 03:11 Dose: 250 mls/hr Documented by: PERLITA Piperacillin Sod/Tazobactam (Sod 3.375 gm/ Sodium Chloride) 100 mls @ 200 mls/hr IVPB ONCE ONE Stop: 10/15/21 11:14 Last Admin: 10/15/21 12:12 Dose: 200 mls/hr Documented by: BOB Insulin Detemir (Insulin Detemir (Levemir) 100 Unit/Ml Syr) 15 unit SQ HS [facility] Last Admin: 10/15/21 20:15 Dose: 15 unit Documented by: PERLITA Insulin Human Regular (Insulin Regular 100 Unit/Ml Vial (Im/Sq)) 5 unit SQ AC- SUPPER [facility] Last Admin: 10/15/21 17:59 Dose: 5 unit Documented by: BOB Objective - Vital Signs Vital signs: Vital Signs Temp 97.8 F 10/17/21 07:51 Pulse 73 10/17/21 13:03 Resp 20 10/17/21 07:51 BP 151/76 10/17/21 07:51 Pulse Ox 97 10/17/21 07:51 Intake & Output 10/16/21 10/17/21 10/17/21 18:59 06:59 18:59 Intake Total 2540 1720 Output Total 1150 Balance 1390 1720 Intake: Oral 2540 1720 Output: Urine 1150 Other: Voiding Method External Catheter External Catheter External Catheter # Voids 4 # Bowel Movements 1 - Labs CBC & Chem 7: 10/14/21 17:30 10/14/21 17:30 Labs: Abnormal Lab Results - Last 24 Hours (Table) 10/16/21 10/16/21 10/17/21 Range/Units 16:24 19:57 07:18 POC Glucose (mg/dL) 412 H 405 H 312 H (75-99) mg/dL 10/17/21 Range/Units 11:29 POC Glucose (mg/dL) 337 H (75-99) mg/dL Microbiology - Last 24 Hours (Table) 10/15/21 02:30 Blood Culture Gram Stain - Preliminary Blood Blood Culture - Preliminary Staphylococcus epidermidis 10/15/21 02:15 Blood Culture - Preliminary Blood No Growth after 48 hours 10/14/21 Unknown Gram Stain - Preliminary Sputum Sputum Culture - Preliminary
--- NOTE | 2021-10-17 16:21 | P.PN ---
Subjective Progress Note Date: 10/17/21 Principal diagnosis: Acute right lower lobe pneumonia Today on 10/17/2021 patient is seen in follow-up on medical surgical floor, she is resting comfortably in bed, in no acute distress, she is currently on 3 L of oxygen and her pulse ox is 93%, she normally wears 3 L of oxygen on a regular basis at home. She is being treated for right lower lobe pneumonia, she tested negative for COVID-19, she is on Zosyn for empiric antibiotic coverage, she's been afebrile overnight, no complaint of chest pain, she does have some scattered wheezes. No altered mentation, occasional cough, no significant phlegm production. Her CTA chest showed no evidence of pulmonary embolism, and right lower lobe airlessness was smaller pleural effusion with possibility of right lower lobe bronchopneumonia. There was also mild cardiomegaly and left and right coronary calcifications. Patient has significant edema in her bilateral lower extremities and she states that is chronic for her. Patient was started on IV Lasix 40 mg daily, she is on breathing treatments Objective - Vital Signs Vital signs: Vital Signs Temp 98.7 F 10/17/21 14:00 Pulse 83 10/17/21 14:00 Resp 18 10/17/21 14:00 BP 136/67 10/17/21 14:00 Pulse Ox 94 L 10/17/21 14:00 Intake & Output 10/16/21 10/17/21 10/17/21 18:59 06:59 18:59 Intake Total 2540 1720 Output Total 1150 Balance 1390 1720 Intake: Oral 2540 1720 Output: Urine 1150 Other: Voiding Method External Catheter External Catheter External Catheter # Voids 4 # Bowel Movements 1 - Exam GENERAL EXAM: Alert, very pleasant, 71-year-old obese white female, on 3 L of oxygen the pulse ox of 94%, comfortable in no apparent distress. HEAD: Normocephalic/atraumatic. EYES: Normal reaction of pupils, equal size. Conjunctiva pink, sclera white. NOSE: Clear with pink turbinates. THROAT: No erythema or exudates. NECK: No masses, no JVD, no thyroid enlargement, no adenopathy. CHEST: No chest wall deformity. Symmetrical expansion. LUNGS: Equal air entry with diffuse wheezes, and crackles in the right lower lobe CVS: Regular rate and rhythm, normal S1 and S2, no gallops, no murmurs, no rubs ABDOMEN: Soft, nontender. No hepatosplenomegaly, normal bowel sounds, no guarding or rigidity. EXTREMITIES: No clubbing, 1+ lower extremity edema, no cyanosis, 2+ pulses and upper and lower extremities. MUSCULOSKELETAL: Muscle strength and tone normal. SPINE: No scoliosis or deformity SKIN: No rashes CENTRAL NERVOUS SYSTEM: Alert and oriented -3. No focal deficits, tone is normal in all 4 extremities. PSYCHIATRIC: Alert and oriented -3. Appropriate affect. Intact judgment and insight. - Labs CBC & Chem 7: 10/14/21 17:30 10/14/21 17:30 Labs: Abnormal Lab Results - Last 24 Hours (Table) 10/16/21 10/16/21 10/17/21 Range/Units 16:24 19:57 07:18 POC Glucose (mg/dL) 412 H 405 H 312 H (75-99) mg/dL 10/17/21 Range/Units 11:29 POC Glucose (mg/dL) 337 H (75-99) mg/dL Microbiology - Last 24 Hours (Table) 10/15/21 02:30 Blood Culture Gram Stain - Preliminary Blood Blood Culture - Preliminary Staphylococcus epidermidis 10/15/21 02:15 Blood Culture - Preliminary Blood No Growth after 48 hours Assessment and Plan Plan: Assessment: #1. Acute hypoxic respiratory failure secondary to right lower lobe pneumonia, the possibility of aspiration versus community-acquired. Is on Zosyn for empiric antibiotic coverage, tested negative for COVID-19 #2. Hypertension #3. Hyperlipidemia #4. Diabetes mellitus type 2 #5. Morbid obesity with a BMI of 57.6 kg/m #6. Remote history of tobacco use Plan: Continue current antibiotic coverage Patient has also been started on Lasix Continue nebulized treatments We'll try to obtain a sputum specimen We'll continue to follow I performed a history & physical examination of the patient and discussed their management with my nurse practitioner, Aisha Villaseñor. I reviewed the nurse practitioner's note and agree with the documented findings and plan of care. Lung sounds are positive for crackles at right lower lobe throughout the lung peacock. The findings and the impression was discussed with the patient. I attest to the documentation by the nurse practitioner. Time with Patient: Less than 30
[2021-10-17 16:40] LABS: Glucose,Whole Blood 373 mg/dL (75-99)
[2021-10-17 20:55] LABS: Glucose,Whole Blood 363 mg/dL (75-99)
[2021-10-17] MEDS: INSULIN DETEMIR (LEVEMIR) 100 UNIT/ML SYR SQ SCH (20:59)
[2021-10-17] MEDS: SERTRALINE 50 MG TAB PO SCH (20:59)
[2021-10-18 07:22] LABS: Glucose,Whole Blood 250 mg/dL (75-99)
[2021-10-18] MEDS: IPRATROPIUM-ALBUTEROL 3 ML NEB INHALATION SCH ×4 (07:40→20:52)
[2021-10-18] MEDS: BUDESONIDE 1 MG/2 ML NEBU INHALATION SCH ×2 (07:40→20:52)
[2021-10-18] MEDS: PIPERACILLIN-TAZOBACTAM 3.375 GM in SODIUM CHLORIDE 0.9% 100 ML IVPB SCH ×3 (08:12→22:22)
[2021-10-18] MEDS: EZETIMIBE 10 MG TAB PO SCH (08:12)
[2021-10-18] MEDS: LOSARTAN 50 MG TAB PO SCH (08:13)
[2021-10-18] MEDS: METOPROLOL SUCCINATE (ER) 50 MG TAB.ER.24H PO SCH (08:13)
[2021-10-18] MEDS: ATORVASTATIN 80 MG TAB PO SCH (08:13)
[2021-10-18] MEDS: FUROSEMIDE 10 MG/ML 4 ML VIAL IV SCH (08:13)
[2021-10-18] MEDS: INSULIN ASPART (NovoLOG) 100 UNIT/ML VIAL SQ SCH ×4 (08:13→22:22)
[2021-10-18] MEDS: amLODIPine 10 MG TAB PO SCH (08:13)
[2021-10-18] MEDS: INSULIN REGULAR 100 UNIT/ML VIAL (IM/SQ) SQ SCH ×2 (08:14→17:05)
[2021-10-18 09:21] LABS: Basophils # (A) 0.02 X 10*3/uL (0.00-0.10); Basophils % (A) 0.2 %; Eosinophils # (A) 0.02 X 10*3/uL (0.04-0.35); Eosinophils % (A) 0.2 %; HCT 43.6 % (37.2-46.3); HGB 13.2 g/dL (12.0-15.0); Lymphocytes # (A) 0.49 X 10*3/uL (0.90-5.00); Lymphocytes % (A) 3.9 %; MCH 29.7 pg (27.0-32.0); MCHC 30.3 g/dL (32.0-37.0); Mean Platelet Volume 10.6 fL (9.5-12.2); Monocytes % (A) 8.7 %; Neutrophils # (A) 10.96 X 10*3/uL (1.80-7.70); Neutrophils % (A) 86.4 %; Platelet Count 236 X 10*3/uL (140-440); RBC 4.45 X 10*6/uL (4.10-5.20); RDW 13.2 % (11.5-14.5); WBC 12.66 X 10*3/uL (4.50-10.00)
[2021-10-18 11:34] LABS: Glucose,Whole Blood 246 mg/dL (75-99)
[2021-10-18 11:36] LABS: African American GFR (CKD) 74.6 (60.0-200.0); Anion Gap 12.2 mmol/L (10.00-18.00); BUN/Creat Ratio 32.44 Ratio (12.00-20.00); Blood Urea Nitrogen 29.2 mg/dL (9.0-27.0); Calcium 9.3 mg/dL (8.7-10.3); Carbon Dioxide 30.8 mmol/L (20.0-27.5); Non-African American GFR(CKD) 64.3 (60.0-200.0); Potassium 4.1 mmol/L (3.5-5.5)
[2021-10-18] MEDS: INSULIN NPH 300 UNIT/3 ML VIAL SQ SCH (11:47)
[2021-10-18] MEDS: predniSONE 10 MG TAB PO SCH (11:48)
--- NOTE | 2021-10-18 13:29 | P.PN ---
Subjective Progress Note Date: 10/18/21 HISTORY OF PRESENT ILLNESS This is a 71-year-old female patient of Dr. Gregoria Llanes with past medical history of hypertension, hyperlipidemia, diabetes mellitus type 2, morbid o besity with BMI 57, remote history of tobacco use. Patient gives history that she developed difficulty breathing with cough congestion and shortness of breath been going on for 3 days. She states she is chronically unable to lay flat and sleeps on several pillows. She denies having any fever or chills. She does not have a nebulizer for CPAP. She does not follow with a pulmonary doctor. She h as seen a hospitality housekeeper in the past, Dr. Plata, but has not followed up in couple years. Patient presented to [facility] emergency center for evaluation. She was found to be afebrile, heart rate 108, blood pressure 176/110, pulse ox 95% on 4 L nasal cannula. EC 13.3, hemoglobin 13.4, platelet count 214. D-dimer 0.95. Electrolytes normal. BUN 21 creatinine 0.7. Blood sugar 313, Her blood glucose running between 348-369. At home, patient is only on regular insulin 20 units with breakfast and 5 with supper. Chest x-ray reveals prominent bibasilar infiltrates, suspected bibasilar pneumonia. CT angiogram of the chest was negative for pulmonary embolism. Right lower lobe air looseness with smaller pleural effusion, suspect right lower lobe bronchopneumonia. Mild cardiomegaly and left and right coronary calcifications. Repeat chest x-ray this morning reveals mild cardiomegaly with moderate central vascular congestion. Possible CHF exacerbation.He can change from the day earlier. Patient has been seen by Dr. Rao of this morning and continued on antibiotics with azithromycin and Rocephin and ordered pro-calcitonin which came back at 0.7, nebulizer treatments continued. : Patient still with shortness of breath with exertion today, and some complaints of dyspnea, and edema bilateral legs, 2+, he has chronically O2 at 3 L at home, blood sugars are elevated today, Levemir added at 15 units, A1c at home is 6.1, however sugars are running on the high 200 300 here, we'll going to increase NovoLog to 8 units pre-meal, 8 units at lunchtime, patient's and dexamethasone 6 milligrams daily, no change with fasting insulin at 20 units. IV Lasix given for the next 2 days, 40 mg every 12 potassium supplementation. 10/17: Patient is doing much better today, has improvement of lower extremity edema, still noted at class II, on Lasix IV, has baseline O2 at 3 L nasal cannula, PT OT is requested, to evaluate for ongoing debility, anticipate discharge to home, dexamethasone is discontinued today, with increased Levemir 20 units last night. Blood sugar 300-400, sputum cultures currently pending, possible discharge in next 24-48 hrs. 10/18: Patient's blood sugars are starting to improve running at [address] her on prednisone 30 mg daily only. She is currently on Lasix 40 mg IV daily. Pulse ox is what she uses at home. She's been afebrile, heart rate 100, blood pressure 162/73. Other blood work reveals WBC 12.6, hemoglobin 13.2. CO2 is 30, BUN 29. Patient is continued on Zosyn and also on nebulizer treatments. We will plan to continue nebulizer treatments at home. Patient will be monitored overnight and discharged home tomorrow. We'll plan for nebulizer at home to manage her diagnosis of right lower lobe pneumonia, gram- negative pneumonia. Echocardiogram reveals EF of 50-55%. REVIEW OF SYSTEMS Constitutional: No fever, no chills, no night sweats. No weight change. No weakness, Reports fatigue or lethargy. No daytime sleepiness. EENT: No headache. No blurred vision or double vision, no loss of vision. No loss of Hearing, no ringing in the ears, no dizziness. No nasal drainage or congestion. No epistaxis. No sore throat. Lungs: Reports shortness of breath, Reports cough, no sputum production. No wheezing. Cardiovascular: No chest pain, no lower extremity edema. No palpitations. No paroxysmal nocturnal dyspnea. No orthopnea. No lightheadedness or dizziness. No syncopal episodes. Abdominal: No abdominal pain. No nausea, vomiting. No diarrhea. No constipation. No bloody or tarry stools. No loss of appetite. Genitourinary: No dysuria, increased frequency, urgency. No urinary retention. Musculoskeletal: No myalgias. No muscle weakness, no gait dysfunction, no frequent falls. No back pain. No neck pain. Integumentary: No wounds, no lesions. No rash or pruritus. No unusual bruising. Neurologic: No aphasia. No facial droop. No change in mentation. No head injury. No headache. No paralysis. No paresthesia. Psychiatric: No depression. No anxiety. No mood swings. Endocrine: Noted abnormal blood sugars. No weight change. No excessive sweating or thirst. No cold intolerance. PHYSICAL EXAMINATION Gen: This is a morbidly obese 71-year-old female. She is resting in bed and appears to be comfortable and in no acute distress. No acute respiratory distress is noted. HEENT: Head is atraumatic, normocephalic. Pupils equal, round. Sclerae is anicteric. NECK: Supple. No JVD. No lymphadenopathy. No thyromegaly. LUNGS: Bilateral rhonchi. No intercostal retractions. No accessory muscle usage HEART: Regular rate and rhythm. No murmur. ABDOMEN: Soft. Bowel sounds are present. No masses. No tenderness. EXTREMITIES: Mild bilateral pedal edema which patient states is baseline. No calf tenderness. NEUROLOGICAL: Patient is awake, alert and oriented x3. Cranial nerves 2 through 12 are grossly intact. ASSESSMENT AND PLAN 1. Right-sided pneumonia, probable gram-negative pneumonia. Antibiotics are Zosyn, continue Pulmicort 1 mg twice daily and continue DuoNeb treatments 4 times daily, continue oxygen as needed. Dexamethasone was discontinued and patient started on prednisone 30 mg daily. 2. Chronic hypoxic respiratory failure on 3 L nasal cannula. 3. Diabetes mellitus type 2 uncontrolled with hyperglycemia. Patient is normally on regular insulin 20 units with breakfast and 5 units with supper which we will resume and start patient on Levemir 15 units at bedtime, patient started on NovoLog scale before meals and at bedtime, obtain hemoglobin A1c is 6.1. 4. Hyperlipidemia. Continue Crestor 40 mg bedtime, Zetia 10 mg daily. 5. Hypertension. Continue losartan 100 mg daily, Toprol-XL 50 mg daily, Norvasc 10 mg daily. 6. Recurrent depression. Continue Zoloft 50 mg at bedtime. 7. GI prophylaxis. Protonix. 8. DVT prophylaxis. Heparin subcu. 9. Chronic hypoxic respiratory failure on home O2 at 3 L nasal cannula. 10. COVID-19 testing negative. Patient has been hospitalized during a pandemic. DISCHARGE PLAN Return home without home care on Monday Impression and plan of care have been directed as dictated by the signing physician. Kristen Mai nurse practitioner acting as scribe for signing physician. Objective - Vital Signs Vital signs: Vital Signs Temp 98.1 F 10/18/21 07:15 Pulse 70 10/18/21 07:55 Resp 16 10/18/21 07:15 BP 162/73 10/18/21 07:15 Pulse Ox 94 L 10/18/21 07:15 Intake & Output 10/17/21 10/18/21 10/18/21 18:59 06:59 18:59 Intake Total 2800 Output Total 1000 Balance 2800 -1000 Intake: Oral 2800 Output: Urine 1000 Other: Voiding Method External Catheter # Voids 5 # Bowel Movements 1 1 - Labs CBC & Chem 7: 10/18/21 06:54 10/18/21 06:54 Labs: Abnormal Lab Results - Last 24 Hours (Table) 10/17/21 10/17/21 10/17/21 Range/Units 11:29 16:39 20:53 WBC (4.50-10.00) X 10*3/uL MCV (80.0-97.0) fL MCHC (32.0-37.0) g/dL Immature Gran # (0.00-0.04) X 10*3/uL Neutrophils # (1.80-7.70) X 10*3/uL Lymphocytes # (0.90-5.00) X 10*3/uL Monocytes # (0.20-1.00) X 10*3/uL Eosinophils # (0.04-0.35) X 10*3/uL POC Glucose (mg/dL) 337 H 373 H 363 H (75-99) mg/dL 10/18/21 10/18/21 Range/Units 06:54 07:18 WBC 12.66 H (4.50-10.00) X 10*3/uL MCV 98.0 H (80.0-97.0) fL MCHC 30.3 L (32.0-37.0) g/dL Immature Gran # 0.07 H (0.00-0.04) X 10*3/uL Neutrophils # 10.96 H (1.80-7.70) X 10*3/uL Lymphocytes # 0.49 L (0.90-5.00) X 10*3/uL Monocytes # 1.10 H (0.20-1.00) X 10*3/uL Eosinophils # 0.02 L (0.04-0.35) X 10*3/uL POC Glucose (mg/dL) 250 H (75-99) mg/dL Microbiology - Last 24 Hours (Table) 10/15/21 02:15 Blood Culture - Preliminary Blood No Growth after 72 hours 10/15/21 02:30 Blood Culture Gram Stain - Preliminary Blood Blood Culture - Preliminary Staphylococcus epidermidis
--- NOTE | 2021-10-18 13:55 | P.PN ---
Subjective Progress Note Date: 10/18/21 Principal diagnosis: Acute right lower lobe pneumonia Today on 10/17/2021 patient is seen in follow-up on medical surgical floor, she is resting comfortably in bed, in no acute distress, she is currently on 3 L of oxygen and her pulse ox is 93%, she normally wears 3 L of oxygen on a regular basis at home. She is being treated for right lower lobe pneumonia, she tested negative for COVID-19, she is on Zosyn for empiric antibiotic coverage, she's been afebrile overnight, no complaint of chest pain, she does have some scattered wheezes. No altered mentation, occasional cough, no significant phlegm production. Her CTA chest showed no evidence of pulmonary embolism, and right lower lobe airlessness was smaller pleural effusion with possibility of right lower lobe bronchopneumonia. There was also mild cardiomegaly and left and right coronary calcifications. Patient has significant edema in her bilateral lower extremities and she states that is chronic for her. Patient was started on IV Lasix 40 mg daily, she is on breathing treatments On 10/18/2021 patient seen in follow-up on medical surgical floor. She is currently awake and alert, she is clinically improving, breathing much easier, she is currently on 3 L of oxygen pulse ox of 94%, no fever or chills, patient has been ambulating in the room, tolerates activity well. Today's labs have been reviewed, her white blood cell count is 12.6, hemoglobin is 13.2, electrolytes were unremarkable, B1 is 29 creatinine 0.9, follow-up procalcitonin came back improved at 0.15. Lung sounds reveal minimal wheezes. Occasional cough. No complaints of chest pain. Patient has dependent edema in her bilateral lower extremities and patient is being diuresis with 40 daily of Lasix Objective - Vital Signs Vital signs: Vital Signs Temp 98.1 F 10/18/21 07:15 Pulse 70 10/18/21 11:28 Resp 16 10/18/21 07:15 BP 162/73 10/18/21 07:15 Pulse Ox 94 L 10/18/21 07:15 Intake & Output 10/17/21 10/18/21 10/18/21 18:59 06:59 18:59 Intake Total 2800 Output Total 1000 Balance 2800 -1000 Intake: Oral 2800 Output: Urine 1000 Other: Voiding Method External Catheter # Voids 5 # Bowel Movements 1 1 - Exam GENERAL EXAM: Alert, very pleasant, 71-year-old obese white female, on 3 L of oxygen the pulse ox of 94%, comfortable in no apparent distress. HEAD: Normocephalic/atraumatic. EYES: Normal reaction of pupils, equal size. Conjunctiva pink, sclera white. NOSE: Clear with pink turbinates. THROAT: No erythema or exudates. NECK: No masses, no JVD, no thyroid enlargement, no adenopathy. CHEST: No chest wall deformity. Symmetrical expansion. LUNGS: Equal air entry with diffuse wheezes, and crackles in the right lower lobe CVS: Regular rate and rhythm, normal S1 and S2, no gallops, no murmurs, no rubs ABDOMEN: Soft, nontender. No hepatosplenomegaly, normal bowel sounds, no guarding or rigidity. EXTREMITIES: No clubbing, 1+ lower extremity edema, no cyanosis, 2+ pulses and upper and lower extremities. MUSCULOSKELETAL: Muscle strength and tone normal. SPINE: No scoliosis or deformity SKIN: No rashes CENTRAL NERVOUS SYSTEM: Alert and oriented -3. No focal deficits, tone is normal in all 4 extremities. PSYCHIATRIC: Alert and oriented -3. Appropriate affect. Intact judgment and insight. - Labs CBC & Chem 7: 10/18/21 06:54 10/18/21 06:54 Labs: Abnormal Lab Results - Last 24 Hours (Table) 10/17/21 10/17/21 10/18/21 Range/Units 16:39 20:53 06:54 WBC (4.50-10.00) X 10*3/uL MCV (80.0-97.0) fL MCHC (32.0-37.0) g/dL Immature Gran # (0.00-0.04) X 10*3/uL Neutrophils # (1.80-7.70) X 10*3/uL Lymphocytes # (0.90-5.00) X 10*3/uL Monocytes # (0.20-1.00) X 10*3/uL Eosinophils # (0.04-0.35) X 10*3/uL Carbon Dioxide (20.0-27.5) mmol/L BUN (9.0-27.0) mg/dL BUN/Creatinine Ratio (12.00-20.00) Ratio Glucose (70-110) mg/dL POC Glucose (mg/dL) 373 H 363 H (75-99) mg/dL Procalcitonin 0.18 H (0.02-0.09) ng/mL 10/18/21 10/18/21 10/18/21 Range/Units 06:54 06:54 07:18 WBC 12.66 H (4.50-10.00) X 10*3/uL MCV 98.0 H (80.0-97.0) fL MCHC 30.3 L (32.0-37.0) g/dL Immature Gran # 0.07 H (0.00-0.04) X 10*3/uL Neutrophils # 10.96 H (1.80-7.70) X 10*3/uL Lymphocytes # 0.49 L (0.90-5.00) X 10*3/uL Monocytes # 1.10 H (0.20-1.00) X 10*3/uL Eosinophils # 0.02 L (0.04-0.35) X 10*3/uL Carbon Dioxide 30.8 H (20.0-27.5) mmol/L BUN 29.2 H (9.0-27.0) mg/dL BUN/Creatinine Ratio 32.44 H (12.00-20.00) Ratio Glucose 260 H (70-110) mg/dL POC Glucose (mg/dL) 250 H (75-99) mg/dL Procalcitonin (0.02-0.09) ng/mL 10/18/21 Range/Units 11:33 WBC (4.50-10.00) X 10*3/uL MCV (80.0-97.0) fL MCHC (32.0-37.0) g/dL Immature Gran # (0.00-0.04) X 10*3/uL Neutrophils # (1.80-7.70) X 10*3/uL Lymphocytes # (0.90-5.00) X 10*3/uL Monocytes # (0.20-1.00) X 10*3/uL Eosinophils # (0.04-0.35) X 10*3/uL Carbon Dioxide (20.0-27.5) mmol/L BUN (9.0-27.0) mg/dL BUN/Creatinine Ratio (12.00-20.00) Ratio Glucose (70-110) mg/dL POC Glucose (mg/dL) 246 H (75-99) mg/dL Procalcitonin (0.02-0.09) ng/mL Microbiology - Last 24 Hours (Table) 10/14/21 Unknown Gram Stain - Final Sputum Sputum Culture - Final 10/15/21 02:15 Blood Culture - Preliminary Blood No Growth after 72 hours 10/15/21 02:30 Blood Culture Gram Stain - Preliminary Blood Blood Culture - Preliminary Staphylococcus epidermidis Assessment and Plan Plan: Assessment: #1. Acute hypoxic respiratory failure secondary to right lower lobe pneumonia, the possibility of aspiration versus community-acquired. Is on Zosyn for empiric antibiotic coverage, tested negative for COVID-19 #2. Hypertension #3. Hyperlipidemia #4. Diabetes mellitus type 2 #5. Morbid obesity with a BMI of 57.6 kg/m #6. Remote history of tobacco use Plan: Clinically patient continues to improve, Has some minimal wheezing, remains on 3 L of oxygen Procalcitonin level is improving Vital signs have been stable, no fever or chills Continues on Zosyn and Lasix Patient is improving and discharge is anticipated possibly in the next 24 hours I performed a history & physical examination of the patient and discussed their management with my nurse practitioner, Aisha Villaseñor. I reviewed the nurse practitioner's note and agree with the documented findings and plan of care. Lung sounds are positive for crackles at right lower lobe throughout the lung peacock. The findings and the impression was discussed with the patient. I attest to the documentation by the nurse practitioner. Time with Patient: Less than 30
[2021-10-18 16:57] LABS: Glucose,Whole Blood 276 mg/dL (75-99)
[2021-10-18 20:19] LABS: Glucose,Whole Blood 292 mg/dL (75-99)
[2021-10-18 21:48] VITALS: RESP 18
[2021-10-18] MEDS: SERTRALINE 50 MG TAB PO SCH (22:23)
[2021-10-19 07:24] LABS: Glucose,Whole Blood 225 mg/dL (75-99)
[2021-10-19] MEDS: IPRATROPIUM-ALBUTEROL 3 ML NEB INHALATION SCH ×2 (08:15→11:46)
[2021-10-19] MEDS: INSULIN ASPART (NovoLOG) 100 UNIT/ML VIAL SQ SCH ×2 (08:17→12:37)
[2021-10-19] MEDS: PIPERACILLIN-TAZOBACTAM 3.375 GM in SODIUM CHLORIDE 0.9% 100 ML IVPB SCH (08:18)
[2021-10-19] MEDS: FUROSEMIDE 10 MG/ML 4 ML VIAL IV SCH (08:18)
[2021-10-19] MEDS: INSULIN REGULAR 100 UNIT/ML VIAL (IM/SQ) SQ SCH (08:18)
[2021-10-19] MEDS: EZETIMIBE 10 MG TAB PO SCH (08:19)
[2021-10-19] MEDS: ATORVASTATIN 80 MG TAB PO SCH (08:19)
[2021-10-19] MEDS: predniSONE 10 MG TAB PO SCH (08:19)
[2021-10-19] MEDS: amLODIPine 10 MG TAB PO SCH (08:19)
[2021-10-19] MEDS: LOSARTAN 50 MG TAB PO SCH (08:19)
[2021-10-19] MEDS: BUDESONIDE 1 MG/2 ML NEBU INHALATION SCH (08:19)
[2021-10-19] MEDS: METOPROLOL SUCCINATE (ER) 50 MG TAB.ER.24H PO SCH (08:19)
[2021-10-19] MEDS: INSULIN NPH 300 UNIT/3 ML VIAL SQ SCH (08:21)
[2021-10-19 11:41] LABS: Glucose,Whole Blood 241 mg/dL (75-99)
[2021-10-19] MEDS ORDERED: INFLUENZA VACC HIGH-DOSE (65+) 240 MCG/0.7 ML SYRINGE IM ONE (11:53)
--- NOTE | 2021-10-19 12:46 | P.DS ---
Providers Date of admission: 10/15/21 02:20 Expected date of discharge: 10/19/21 Attending physician: Azeem Brown Consults: 10/14/21 21:35 Consult Physician Routine Consulting Provider: Stanley Keating Consult Reason/Comments: pneumonia Do you want consulting provider notified?: Yes Primary care physician: Gregoria Llanes [facility] Course: HISTORY OF PRESENT ILLNESS This is a 71-year-old female patient of Dr. Gregoria Llanes with past medical history of hypertension, hyperlipidemia, diabetes mellitus type 2, morbid obesity with BMI 57, remote history of tobacco use. Patient gives history that she developed difficulty breathing with cough congestion and shortness of breath been going on for 3 days. She states she is chronically unable to lay flat and sleeps on several pillows. She denies having any fever or chills. She does not have a nebulizer for CPAP. She does not follow with a pulmonary doctor. She has seen a specimen preparation assistant in the past, Dr. Plata, but has not followed up in couple years. Patient presented to [facility] emergency center for evaluation. She was found to be afebrile, heart rate 108, blood pressure 176/110, pulse ox 95% on 4 L nasal cannula. EC 13.3, hemoglobin 13.4, platelet count 214. D-dimer 0.95. Electrolytes normal. BUN 21 creatinine 0.7. Blood sugar 313, Her blood glucose running between 348-369. At home, patient is only on regular insulin 20 units with breakfast and 5 with supper. Chest x-ray reveals prominent bibasilar infiltrates, suspected bibasilar pneumonia. CT angiogram of the chest was negative for pulmonary embolism. Right lower lobe air looseness with smaller pleural effusion, suspect right lower lobe bronchopneumonia. Mild cardiomegaly and left and right coronary calcifications. Repeat chest x-ray this morning reveals mild cardiomegaly with moderate central vascular congestion. Possible CHF exacerbation.He can change from the day earlier. Patient has been seen by Dr. Rao of this morning and continued on antibiotics with azithromycin and Rocephin and ordered pro-calcitonin which came back at 0.7, nebulizer treatments continued. : Patient still with shortness of breath with exertion today, and some complaints of dyspnea, and edema bilateral legs, 2+, he has chronically O2 at 3 L at home, blood sugars are elevated today, Levemir added at 15 units, A1c at home is 6.1, however sugars are running on the high 200 300 here, we'll going to increase NovoLog to 8 units pre-meal, 8 units at lunchtime, patient's and dexamethasone 6 milligrams daily, no change with fasting insulin at 20 units. IV Lasix given for the next 2 days, 40 mg every 12 potassium supplementation. 10/17: Patient is doing much better today, has improvement of lower extremity edema, still noted at class II, on Lasix IV, has baseline O2 at 3 L nasal cannula, PT OT is requested, to evaluate for ongoing debility, anticipate discharge to home, dexamethasone is discontinued today, with increased Levemir 20 units last night. Blood sugar 300-400, sputum cultures currently pending, possible discharge in next 24-48 hrs. 10/18: Patient's blood sugars are starting to improve running at [address] her on prednisone 30 mg daily only. She is currently on Lasix 40 mg IV daily. Pulse ox is what she uses at home. She's been afebrile, heart rate 100, blood pressure 162/73. Other blood work reveals WBC 12.6, hemoglobin 13.2. CO2 is 30, BUN 29. Patient is continued on Zosyn and also on nebulizer treatments. We will plan to continue nebulizer treatments at home. Patient will be monitored overnight and discharged home tomorrow. We'll plan for nebulizer at home to manage her diagnosis of right lower lobe pneumonia, gram- negative pneumonia, chronic bronchitis. Echocardiogram reveals EF of 50-55%. 10/19: Patient is currently on Zosyn which will be transitioned to Augmentin to complete another 5 days. Blood sugars are improved but still elevated. We are planning on short course of NPH insulin for home while patient is on steroids. Nebulizer has been arranged by block and case maker. Pulse ox is 94% on 3 L nasal cannula. Heart rate in the 60s and 80s, afebrile, blood pressure 135/80. Patient will be discharged home today in stable condition. DISCHARGE DIAGNOSES 1. Right-sided pneumonia, probable gram-negative pneumonia. 2. Chronic hypoxic respiratory failure on 3 L nasal cannula. 3. Diabetes mellitus type 2 uncontrolled with hyperglycemia secondary to steroids. A1c 6.1. 4. Hyperlipidemia. 5. Hypertension. 6. Recurrent depression. 7. COVID-19 testing negative. Patient has been hospitalized during a pandemic. DISCHARGE PLAN Home without homecare. Greater than 35 minutes was utilized and coordinating patient's discharge. Impression and plan of care have been directed as dictated by the signing physician. Kristen Mai nurse practitioner acting as scribe for signing physician. Plan - Discharge Summary Discharge Rx Participant: No New Discharge Prescriptions: New Ipratropium-Albuterol Nebulize [Duoneb 0.5 mg-3 mg/3 ml Soln] 3 ml INHALATION RT-QID #120 dose Budesonide [Pulmicort] 1 mg INHALATION RT-BID #120 ml Insulin NPH [humuLIN N] 15 unit SQ AC-BRKFST #10 ml Furosemide [Lasix] 40 mg PO DAILY #30 tablet Continue Ezetimibe [Zetia] 10 mg PO DAILY amLODIPine [Norvasc] 10 mg PO DAILY Rosuvastatin Calcium [Crestor] 40 mg PO DAILY Metoprolol Succinate (ER) [Toprol XL] 50 mg PO DAILY Losartan Potassium [Cozaar] 100 mg PO DAILY Sertraline HCl [Zoloft] 50 mg PO HS Insulin Regular [HumuLIN R] 20 units SQ AC-BRKFST Changed Insulin Regular [HumuLIN R] 8 units SQ AC-SUPPER #0 Discharge Medication List Ezetimibe [Zetia] 10 mg PO DAILY 06/20/17 [History] Losartan Potassium [Cozaar] 100 mg PO DAILY 06/20/17 [History] Metoprolol Succinate (ER) [Toprol XL] 50 mg PO DAILY 06/20/17 [History] Rosuvastatin Calcium [Crestor] 40 mg PO DAILY 06/20/17 [History] Sertraline HCl [Zoloft] 50 mg PO HS 06/20/17 [History] amLODIPine [Norvasc] 10 mg PO DAILY 06/20/17 [History] Insulin Regular [HumuLIN R] 20 units SQ AC-BRKFST 10/14/21 [History] Budesonide [Pulmicort] 1 mg INHALATION RT-BID #120 ml 10/18/21 [Rx] Insulin Regular [HumuLIN R] 8 units SQ AC-SUPPER #0 10/18/21 [Rx] Ipratropium-Albuterol Nebulize [Duoneb 0.5 mg-3 mg/3 ml Soln] 3 ml INHALATION RT-QID #120 dose 10/18/21 [Rx] Furosemide [Lasix] 40 mg PO DAILY #30 tablet 10/19/21 [Rx] Insulin NPH [humuLIN N] 15 unit SQ AC-BRKFST #10 ml 10/19/21 [Rx] Follow up Appointment(s)/Referral(s): [facility] [NON-STAFF] - As Needed (nebulizer) Gregoria Llanes MD [Primary Care Provider] - 1 Week Stanley Keating DO [Doctor of Osteopathic Medicine] - 2 Weeks Patient Instructions/Handouts: Viral Pneumonia (DC) Activity/Diet/Wound Care/Special Instructions: PATIENT REQUESTING INFLUENZA VACCINE PRIOR TO DISCHARGE. Discharge Disposition: HOME WITH HOME HEALTH SERVICES
[2021-10-19 14:41] VITALS: BP 123/69; PULSE 67; TEMP 97.8
--- NOTE | 2021-10-19 14:56 | P.PN ---
Subjective Progress Note Date: 10/19/21 Principal diagnosis: Acute right lower lobe pneumonia Today on 10/17/2021 patient is seen in follow-up on medical surgical floor, she is resting comfortably in bed, in no acute distress, she is currently on 3 L of oxygen and her pulse ox is 93%, she normally wears 3 L of oxygen on a regular basis at home. She is being treated for right lower lobe pneumonia, she tested negative for COVID-19, she is on Zosyn for empiric antibiotic coverage, she's been afebrile overnight, no complaint of chest pain, she does have some scattered wheezes. No altered mentation, occasional cough, no significant phlegm production. Her CTA chest showed no evidence of pulmonary embolism, and right lower lobe airlessness was smaller pleural effusion with possibility of right lower lobe bronchopneumonia. There was also mild cardiomegaly and left and right coronary calcifications. Patient has significant edema in her bilateral lower extremities and she states that is chronic for her. Patient was started on IV Lasix 40 mg daily, she is on breathing treatments On 10/18/2021 patient seen in follow-up on medical surgical floor. She is currently awake and alert, she is clinically improving, breathing much easier, she is currently on 3 L of oxygen pulse ox of 94%, no fever or chills, patient has been ambulating in the room, tolerates activity well. Today's labs have been reviewed, her white blood cell count is 12.6, hemoglobin is 13.2, electrolytes were unremarkable, B1 is 29 creatinine 0.9, follow-up procalcitonin came back improved at 0.15. Lung sounds reveal minimal wheezes. Occasional cough. No complaints of chest pain. Patient has dependent edema in her bilateral lower extremities and patient is being diuresis with 40 daily of Lasix On 10/19/2021 patient is seen in follow-up on medical surgical floor. Patient continues to improve, breathing comfortably, she is currently on 3 L of oxygen, pulse ox is 97%, she's been afebrile, hemodynamically she is stable, she's had no acute events overnight, no chest discomfort, the cough is improving. No new labs today. Studies labs have been reviewed, her white blood cell, was improving, hemoglobin was stable, electrodes lites and renal profile were unremarkable. Her pro-calcitonin was improving and was down to 0.18. She's had no fever or chills. Her blood culture showed Staphylococcus epidermidis, related to contamination. Patient has Been up out of bed with assistance. She has oxygen at home she resides with her son who assists her with ADLs and the plan is for patient to be discharged home today in the care of her family Objective - Vital Signs Vital signs: Vital Signs Temp 97.8 F 10/19/21 14:00 Pulse 67 10/19/21 14:00 Resp 18 10/19/21 14:00 BP 123/69 10/19/21 14:00 Pulse Ox 97 10/19/21 14:00 Intake & Output 10/18/21 10/19/21 10/19/21 18:59 06:59 18:59 Intake Total 1560 Output Total 1300 Balance 1560 -1300 Intake: Oral 1560 Output: Urine 1300 Other: Voiding Method External Catheter External Catheter # Voids 2 1 # Bowel Movements 1 1 1 - Exam GENERAL EXAM: Alert, very pleasant, 71-year-old obese white female, on 3 L of oxygen the pulse ox of 97%, comfortable in no apparent distress. HEAD: Normocephalic/atraumatic. EYES: Normal reaction of pupils, equal size. Conjunctiva pink, sclera white. NOSE: Clear with pink turbinates. THROAT: No erythema or exudates. NECK: No masses, no JVD, no thyroid enlargement, no adenopathy. CHEST: No chest wall deformity. Symmetrical expansion. LUNGS: Equal air entry with diffuse wheezes, and crackles in the right lower lobe CVS: Regular rate and rhythm, normal S1 and S2, no gallops, no murmurs, no rubs ABDOMEN: Soft, nontender. No hepatosplenomegaly, normal bowel sounds, no guarding or rigidity. EXTREMITIES: No clubbing, 1+ lower extremity edema, no cyanosis, 2+ pulses and upper and lower extremities. MUSCULOSKELETAL: Muscle strength and tone normal. SPINE: No scoliosis or deformity SKIN: No rashes CENTRAL NERVOUS SYSTEM: Alert and oriented -3. No focal deficits, tone is normal in all 4 extremities. PSYCHIATRIC: Alert and oriented -3. Appropriate affect. Intact judgment and insight. - Labs CBC & Chem 7: 10/18/21 06:54 10/18/21 06:54 Labs: Abnormal Lab Results - Last 24 Hours (Table) 10/18/21 10/18/21 10/19/21 Range/Units 16:55 20:18 07:21 POC Glucose (mg/dL) 276 H 292 H 225 H (75-99) mg/dL 10/19/21 Range/Units 11:39 POC Glucose (mg/dL) 241 H (75-99) mg/dL Microbiology - Last 24 Hours (Table) 10/15/21 02:15 Blood Culture - Preliminary Blood No Growth after 96 hours 10/17/21 15:22 Blood Culture - Preliminary Blood No Growth after 24 hours 10/14/21 Unknown Gram Stain - Final Sputum Sputum Culture - Final Assessment and Plan Plan: Assessment: #1. Acute hypoxic respiratory failure secondary to right lower lobe pneumonia, the possibility of aspiration versus community-acquired. Is on Zosyn for empiric antibiotic coverage, tested negative for COVID-19 #2. Hypertension #3. Hyperlipidemia #4. Diabetes mellitus type 2 #5. Morbid obesity with a BMI of 57.6 kg/m #6. Remote history of tobacco use Plan: No acute events overnight, no fever or chills, Patient is breathing comfortably, Chest some minimal wheezing, mild cough, overall improving Procalcitonin level is improving Patient has been diuresed, she's been treated with empiric antibiotics, No acute events overnight Stable for discharge home today from pulmonary perspective with outpatient follow-up with Dr. Rao in the office in one to 2 weeks I performed a history & physical examination of the patient and discussed their management with my nurse practitioner, Aisha Villaseñor. I reviewed the nurse practitioner's note and agree with the documented findings and plan of care. Lung sounds are positive for crackles at right lower lobe throughout the lung peacock. The findings and the impression was discussed with the patient. I attest to the documentation by the nurse practitioner. Time with Patient: Less than 30
== END 2021-10-19 14:43 | disposition home health service (06) | DRG 177 ==
LOC: EC 16:52 → 4SSUR 10-15 02:20
PROVIDERS: ADMIT Internal Medicine Geriatric Medicine; ATTEND Internal Medicine Geriatric Medicine
DX: J15.6 Pneumonia due to other Gram-negative bacteria (principal); J96.21 Acute and chronic respiratory failure with hypoxia; I50.31 Acute diastolic (congestive) heart failure; Z68.43 Body mass index [BMI] 50.0-59.9, adult; F33.9 Major depressive disorder, recurrent, unspecified; J44.0 Chronic obstructive pulmonary disease with (acute) lower respiratory infection; E11.65 Type 2 diabetes mellitus with hyperglycemia; E66.01 Morbid (severe) obesity due to excess calories; E78.5 Hyperlipidemia, unspecified; F41.9 Anxiety disorder, unspecified; I11.0 Hypertensive heart disease with heart failure; I25.10 Atherosclerotic heart disease of native coronary artery without angina pectoris; Z20.822 Contact with and (suspected) exposure to COVID-19; T38.0X5A Adverse effect of glucocorticoids and synthetic analogues, initial encounter; Z79.4 Long term (current) use of insulin; Z79.51 Long term (current) use of inhaled steroids; Z79.899 Other long term (current) drug therapy; Z82.49 Family history of ischemic heart disease and other diseases of the circulatory system; Z87.891 Personal history of nicotine dependence; Z99.81 Dependence on supplemental oxygen
CPT/HCPCS: 36415; 71045; 71275; 80048; 80053; 81001; 83036; 83605; 83880; 84145; 84484; 85025; 85379; 85610; 85730; 87040; 87070; 87077; 87186; 87205; 87635; 90662; 93005; 93306; 94640; 94660; 94760; 99285

== ENCOUNTER 2025-02-07 19:26 | Inpatient (IN) | payer MEDICARE, OTHER ==
[2025-02-07 19:46] LABS: Basophils # (A) 0.11 10*3/uL (0.00-0.10); Basophils % (A) 0.7 %; Eosinophils # (A) 0.71 10*3/uL (0.04-0.35); Eosinophils % (A) 4.7 %; HCT 44.2 % (37.2-46.3); HGB 14.3 g/dL (12.0-15.0); Lymphocytes # (A) 2.56 10*3/uL (0.90-5.00); Lymphocytes % (A) 17.1 %; MCH 31.2 pg (27.0-32.0); MCHC 32.4 g/dL (32.0-37.0); MCV 96.5 fL (80.0-97.0); Mean Platelet Volume 10.8 fL (9.5-12.2); Monocytes # (A) 1.03 10*3/uL (0.20-1.00); Monocytes % (A) 6.9 %; Neutrophils # (A) 10.48 10*3/uL (1.80-7.70); Neutrophils % (A) 70.2 %; Platelet Count 269 10*3/uL (140-440); RBC 4.58 10*6/uL (4.10-5.20); RDW 12.6 % (11.5-14.5); WBC 14.95 10*3/uL (4.50-10.00)
--- NOTE | 2025-02-07 19:50 | ED ---
General Adult HPI - General Chief complaint: Shortness of Breath Stated complaint: TRINITY Time Seen by Provider: 02/07/25 19:33 Source: patient Mode of arrival: EMS Limitations: no limitations - History of Present Illness Initial comments: Patient is a 74-year-old female past medical history COPD, CHF presenting today for shortness of breath. States woke up this morning on for 8:30 AM with difficulty in breathing. She states it made it difficult for her to lay flat. She continued to try to monitor symptoms show today however her son came to check on her this afternoon and suggested she go to the hospital. Patient wears 3 L oxygen nasal cannula at baseline and is currently in her home 3 L. Patient received 1 sublingual nitroglycerin, a DuoNeb, 125 Solu-Medrol, 0.3 mg IM epi, 1 mg IV Versed by EMS. They attempted to place patient on CPAP however she was unable to tolerate CPAP so they gave they assisted with respirations via BVM. They state they felt patient improved after IM epinephrine. Patient endorses a dry cough denies hemoptysis or sputum production. Denies fevers or chills. Denies chest pain denies abdominal pain. She endorses nausea but no episodes of emesis. Nausea started after ambulance ride and thinks that it may be a ttributed to that. Unsure of worsening lower extremity edema. Does take Lasix denies any missed dosages. Is not on blood thinners. - Related Data Home Medications Medication Instructions Recorded Confirmed Ezetimibe [Zetia] 10 mg PO DAILY 06/20/17 02/08/25 Losartan Potassium [Cozaar] 100 mg PO DAILY 06/20/17 02/08/25 Metoprolol Succinate (ER) [Toprol 50 mg PO DAILY 06/20/17 02/08/25 XL] Rosuvastatin Calcium [Crestor] 40 mg PO DAILY 06/20/17 02/08/25 Sertraline HCl [Zoloft] 50 mg PO HS 06/20/17 02/08/25 Insulin Regular [humuLIN R] 20 units SQ DAILY 10/14/21 02/08/25 Albuterol Inhaler [Ventolin Hfa 2 puff INHALATION RT-QID PRN 02/08/25 02/08/25 Inhaler] Chlorthalidone 50 mg PO DAILY 02/08/25 02/08/25 Insulin Regular [humuLIN R] 1 - 10 units SQ HS 02/08/25 02/08/25 Ipratropium-Albuterol Nebulize 3 ml INHALATION RT-QID PRN 02/08/25 02/08/25 [Duoneb 0.5 mg-3 mg/3 ml Soln] Spironolactone [Aldactone] 25 mg PO DAILY 02/08/25 02/08/25 amLODIPine [Norvasc] 5 mg PO DAILY 02/08/25 02/08/25 Allergies Allergy/AdvReac Type Severity Reaction Status Date / Time No Known Allergies Allergy Verified 02/08/25 11:41 Review of Systems ROS Statement: Those systems with pertinent positive or pertinent negative responses have been documented in the HPI. ROS Other: All systems not noted in ROS Statement are negative. Past Medical History Past Medical History: Chest Pain / Angina, Diabetes Mellitus, Hypertension Additional Past Medical History / Comment(s): HEMORRHOID, POSITIVE TEST FOR BLOOD IN STOOL., STATES DIFFICULTY WALKING DISTANCE, BACK PAIN. History of Any Multi-Drug Resistant Organisms: None Reported Past Surgical History: Bariatric Surgery, Heart Catheterization, Tonsillectomy Additional Past Surgical History / Comment(s): LAP BAND INSERTED AND REMOVED (SEPTIC), D & C'S, EXCESS SKIN ON ABDOMEN REMOVED -? PANNICULECTOMY. Past Anesthesia/Blood Transfusion Reactions: No Reported Reaction Past Psychological History: Anxiety Smoking Status: Never smoker Past Alcohol Use History: None Reported Past Drug Use History: None Reported - Past Family History Mother Family Medical History: No Reported History Father Additional Family Medical History / Comment(s): Heart problems. General Exam - General Exam Comments Initial Comments: PE: CONSTITUTIONAL: [no apparent distress, ill-appearing, nontoxic] SKIN: [warm, dry, no jaundice, hives or petechiae] EYES:[ pupils are equally round, extraocular movements intact without nystagmus, clear conjunctiva, non-icteric sclera] HENT: [normocephalic, atraumatic, moist mucus membranes, oropharynx clear without exudates] NECK: , [Full range of motion, normal appearance] PULMONARY: [Wheezes and crackles in bilateral lung peacock throughout all lung peacock, normal excursion, no chemical radiation technician muscle use or stridor ] CARDIOVASCULAR:[ regular rate, rhythm, normal S1 and S2. No appreciated murmurs, rubs or gallops. Strong radial pulses with intact distal perfusion. Bilateral lower extremity nonpitting edema] GASTROINTESTINAL: [soft, active bowel sounds throughout, non-tender, non- distended, no palpable masses, no rebound or guarding. No hepatosplenomegaly] GENITOURINARY: MUSCULOSKELETAL: [Extremities have no gross deformity, no edema, redness, or swelling. No calf swelling ] NEUROLOGIC: [_a/o x 3, GCS 15, normal mentation and speech. Moves all extremities x 4 without motor or sensory deficit] PSYCHIATRIC:[ _normal mood and affect, thought process is clear and linear] Limitations: no limitations Course Vital Signs 02/07/25 02/07/25 02/07/25 19:30 19:52 20:15 Temperature 97.5 F L Pulse Rate 89 75 84 Respiratory 28 H Rate Blood Pressure 114/82 O2 Sat by Pulse 98 Oximetry 02/07/25 02/07/25 02/07/25 20:16 20:40 20:45 Temperature Pulse Rate 84 89 86 Respiratory 24 Rate Blood Pressure 127/58 O2 Sat by Pulse 100 Oximetry 02/07/25 02/07/25 02/07/25 20:47 21:17 21:35 Temperature 98.5 F Pulse Rate 86 92 89 Respiratory 20 Rate Blood Pressure 105/47 O2 Sat by Pulse 97 Oximetry EKG Findings - EKG Comments: EKG Findings:: Sinus rhythm, rate 87 bpm FL interval 188 ms QT/QTc 358/402 ms, borderline left axis deviation, no ST elevations or depressions, there is some artifact present limiting interpretation Medical Decision Making - Medical Decision Making Was pt. sent in by a medical professional or institution (Dr. PA, SENIOR ACCOUNTING MANAGER, urgent care, hospital, or custodial...) When possible be specific @ -No Did you speak to anyone other than the patient for history (EMS, parent, family, police, friend...)? What history was obtained from this source @ Spoke with pt's son, who is an EMT, who confirmed history as provided above by patient Did you review nursing and triage notes (agree or disagree)? Why? @ -I reviewed nursing and triage notes- disagree, states patient required bagging en route, patient was given some assistance with respirations in place of CPAP, however she never required fulled assistance Were old charts reviewed (outside hosp., previous admission, EMS record, old EKG, old radiological studies, urgent care reports/EKG's, custodial records)? Report findings @ -Medical records reviewed-Patient last here in 2020, reviewed discharge summary, at that time patient had presented for difficulty in breathing, it appeared she was treated for COPD exacerbation as well as CHF, as well as bilateral pneumonia,, echocardiogram at that time reportedly showed EF of 50 to 55% Differential Diagnosis (chest pain, altered mental status, abdominal pain women, abdominal pain men, vaginal bleeding, weakness, fever, dyspnea, syncope, hea dache, dizziness, GI bleed, back pain, seizure, CVA, palpatations, mental health, musculoskeletal)? @Differential Dyspnea: Coronary syndrome, arrhythmia, tamponade, asthma, COPD, pneumonia, pneumoth orax, pulmonary effusion, anaphylaxis, , anemia, neuromuscular, this is not meant to be an all-inclusive list. Of note, though EMS reported pt improved with IM epi, she does not display additional signs/symptoms consistent with anaphylaxis and exam is more consistent with CHF vs COPD exacerbation, therefor additional doses of IM epi or further treatment for allergic reaction was not given EKG interpreted by me (3pts min.). @ -As above X-rays interpreted by me (1pt min.). @ -I personally reviewed CXR, I see no pleural effusions, does not appear to show pulmonary vascular congestion, or consolidations, agree with radiologist interpretation CT interpreted by me (1pt min.). @ -None done U/S interpreted by me (1pt. min.). @ -None done What testing was considered but not performed or refused? (CT, X-rays, U/S, labs)? Why? @ -None What meds were considered but not given or refused? Why? @ -None Did you discuss the management of the patient with other professionals (professionals i.e. , PA, SENIOR ACCOUNTING MANAGER, lab, RT, psych nurse, social media marketing specialist, staining machine operator, teacher, fourth officer, outpatient case manager)? Give summary @ -No Was smoking cessation discussed for >3mins.? @ -No Was critical care preformed (if so, how long)? @Yes 35 minutes Were there social determinants of health that impacted care today? How? (Ho melessness, low income, unemployed, alcoholism, drug addiction, transportation, low edu. Level, literacy, decrease access to med. care, skilled nursing, rehab)? @ -No Was there de-escalation of care discussed even if they declined (Discuss DNR or withdrawal of care, Hospice)? @ -No What co-morbidities impacted this encounter? (DM, HTN, Smoking, COPD, CAD, Cancer, CVA, ARF, Chemo, Hep., AIDS, mental health diagnosis, sleep apnea, morbid obesity)? COPD, CHF, obesity Was patient admitted / discharged? Hospital course, mention meds given and route, prescriptions, significant lab abnormalities, going to OR and other pertinent info. @ Admission= This is a pleasant 74 y/o female presenting for difficulty in breathing, worsens with laying flat. On assessment patient has rales and wheezes in the bilateral lung peacock. She is on her home 3 L oxygen nasal cannula, with satisfactory oxygen saturations. No assessory muscle use. Patient received multiple medications prior to arrival including sublingual nitro, 0.3 mg IM epinephrine, Versed, DuoNeb, Solu-Medrol. Patient's exam is currently consistent most likely with CHF exacerbation versus COPD exacerbation versus combination thereof. She will receive [id number] nebulizers, chest x- ray, comprehensive labs. Anticipate admission CXR without acute process. On reassessment, patient is completing her 2nd duoneb, she is mildly tachypneic however states her symptoms do feel improved since arrival. Will perform third DuoNeb treatment.Considered bipap however pt does not have significantly increased work of breathing at this point and has improving symptoms. Labs significant for a mild leukocytosis white blood cell count 14.95 I suspect this is more likely secondary to steroid administration as opposed to acute infectious process, potassium is 5.2 though does state is hemolyzed she has no peaked T waves on EKG, creatinine 1.09, previously 0.9 GFR 50 previously was 64.3, labs today consistent with QUIANA, troponin is slightly elevated 0.036 though she has no chest pain or significant EKG changes, BNP 498. Due to no signs of pulmonary edema on x-ray, and QUIANA she will receive a small 500 cc fluid bolus. Discussed findings and plan for admission with patient and son. Due to persistence of symptoms patient will admitted for COPD exacerbation. Case discussed with Dr. Ferro who kindly accepted patient for admission. Undiagnosed new problem with uncertain prognosis? @ -No Drug Therapy requiring intensive monitoring for toxicity (Heparin, Nitro, Insulin, Cardizem)? @ -No Were any procedures done? @ -No Diagnosis/symptom? COPD exacerbation, QUIANA Acute, or Chronic, or Acute on Chronic? acute Uncomplicated (without systemic symptoms) or Complicated (systemic symptoms)? @ complicated Side effects of treatment? @ -No Exacerbation, Progression, or Severe Exacerbation? @ -exacerbation Poses a threat to life or bodily function? How? (Chest pain, [place], [place], pneumonia, PE, COPD, DKA, ARF, appy, cholecystitis, CVA, Diverticulitis, Homicidal, Suicidal, threat to staff... and all critical care pts) yes - Lab Data Result diagrams: 02/08/25 08:06 02/08/25 13:20 Lab Results 02/07/25 02/07/25 02/07/25 Range/Units 19:42 19:42 19:42 WBC 14.95 H (4.50-10.00) 10*3/uL RBC 4.58 (4.10-5.20) 10*6/uL Hgb 14.3 (12.0-15.0) g/dL Hct 44.2 (37.2-46.3) % MCV 96.5 (80.0-97.0) fL MCH 31.2 (27.0-32.0) pg MCHC 32.4 (32.0-37.0) g/dL Plt Count 269 (140-440) 10*3/uL MPV 10.8 (9.5-12.2) fL Immature Gran % (Auto) 0.4 % Neutrophils % 70.2 % Lymphocytes % 17.1 % Monocytes % 6.9 % Eosinophils % 4.7 % Basophils % 0.7 % Immature Gran # 0.06 H (0.00-0.04) 10*3/uL Neutrophils # 10.48 H (1.80-7.70) 10*3/uL Lymphocytes # 2.56 (0.90-5.00) 10*3/uL Monocytes # 1.03 H (0.20-1.00) 10*3/uL Eosinophils # 0.71 H (0.04-0.35) 10*3/uL Basophils # 0.11 H (0.00-0.10) 10*3/uL PT 11.0 (10.0-12.5) sec INR 1.0 (<1.2) APTT 22.8 (22.0-30.0) sec Sodium 139 (137-145) mmol/L Potassium 5.2 H (3.5-5.1) mmol/L Chloride 107 (98-107) mmol/L Carbon Dioxide 25 (22-30) mmol/L Anion Gap 7 mmol/L BUN 44 H (7-17) mg/dL Creatinine 1.09 H (0.52-1.04) mg/dL Est GFR (CKD-EPI)AfAm 58 (>60 ml/min/1.73 sqM) Est GFR (CKD-EPI)NonAf 50 (>60 ml/min/1.73 sqM) Glucose 125 H (74-99) mg/dL Calcium 10.5 H (8.4-10.2) mg/dL Magnesium 1.9 (1.6-2.3) mg/dL Total Bilirubin 0.7 (0.2-1.3) mg/dL AST 30 (14-36) U/L ALT 35 H (4-34) U/L Alkaline Phosphatase 83 (38-126) U/L Troponin I (0.000-0.034) ng/mL NT-Pro-B Natriuret Pep 498 pg/mL Total Protein 7.1 (6.3-8.2) g/dL Albumin 4.0 (3.5-5.0) g/dL 02/07/25 Range/Units 19:42 WBC (4.50-10.00) 10*3/uL RBC (4.10-5.20) 10*6/uL Hgb (12.0-15.0) g/dL Hct (37.2-46.3) % MCV (80.0-97.0) fL MCH (27.0-32.0) pg MCHC (32.0-37.0) g/dL Plt Count (140-440) 10*3/uL MPV (9.5-12.2) fL Immature Gran % (Auto) % Neutrophils % % Lymphocytes % % Monocytes % % Eosinophils % % Basophils % % Immature Gran # (0.00-0.04) 10*3/uL Neutrophils # (1.80-7.70) 10*3/uL Lymphocytes # (0.90-5.00) 10*3/uL Monocytes # (0.20-1.00) 10*3/uL Eosinophils # (0.04-0.35) 10*3/uL Basophils # (0.00-0.10) 10*3/uL PT (10.0-12.5) sec INR (<1.2) APTT (22.0-30.0) sec Sodium (137-145) mmol/L Potassium (3.5-5.1) mmol/L Chloride (98-107) mmol/L Carbon Dioxide (22-30) mmol/L Anion Gap mmol/L BUN (7-17) mg/dL Creatinine (0.52-1.04) mg/dL Est GFR (CKD-EPI)AfAm (>60 ml/min/1.73 sqM) Est GFR (CKD-EPI)NonAf (>60 ml/min/1.73 sqM) Glucose (74-99) mg/dL Calcium (8.4-10.2) mg/dL Magnesium (1.6-2.3) mg/dL Total Bilirubin (0.2-1.3) mg/dL AST (14-36) U/L ALT (4-34) U/L Alkaline Phosphatase (38-126) U/L Troponin I 0.036 H* (0.000-0.034) ng/mL NT-Pro-B Natriuret Pep pg/mL Total Protein (6.3-8.2) g/dL Albumin (3.5-5.0) g/dL Disposition Clinical Impression: COPD exacerbation, QUIANA (acute kidney injury) Disposition: ADMITTED IP TO THIS HOSP Condition: Stable
[2025-02-07] MEDS: IPRATROPIUM 0.5 MG/2.5 ML NEBU INHALATION STA ×3 (19:51→21:06)
[2025-02-07] MEDS: methylPREDNISolone SOD SUCCI 125 MG/2 ML VIAL IV STA (19:51)
[2025-02-07] MEDS: ALBUTEROL NEBULIZED 2.5 MG/3 ML INHALATION SCH (19:51)
[2025-02-07 20:03] LABS: ALT 35 U/L (4-34); African American GFR (CKD) 58 (>60 ml/min/1.73 sqM); Anion Gap 7 mmol/L; Blood Urea Nitrogen 44 mg/dL (7-17); Calcium 10.5 mg/dL (8.4-10.2); Carbon Dioxide 25 mmol/L (22-30); Chloride 107 mmol/L (98-107); Glucose 125 mg/dL (74-99); Non-African American GFR(CKD) 50 (>60 ml/min/1.73 sqM); Sodium 139 mmol/L (137-145); Total Bilirubin 0.7 mg/dL (0.2-1.3); Total Protein 7.1 g/dL (6.3-8.2)
[2025-02-07 20:06] LABS: Partial Thromboplastin Time 22.8 sec (22.0-30.0)
[2025-02-07 20:11] LABS: NT-Pro-B-Type Natriuretic Pept 498 pg/mL
[2025-02-07 20:13] LABS: AST 30 U/L (14-36); Alkaline Phosphatase 83 U/L (38-126); Magnesium 1.9 mg/dL (1.6-2.3); Potassium 5.2 mmol/L (3.5-5.1)
--- NOTE | 2025-02-07 20:15 | XR ---
EXAMINATION TYPE: XR chest 1V portable DATE OF EXAM: 02/07/2025 8:08 PM COMPARISON: 10/15/2021 CLINICAL INDICATION: Female, 74 years old with history of dyspnea, CHF vs COPD, TECHNIQUE: XR chest 1V portable view(s) obtained. FINDINGS: The heart size is normal. The pulmonary vasculature is upper limits of normal. The lungs are clear. IMPRESSION: 1. No acute pulmonary process. [facility], , 02/07/2025 8:13 PM
[2025-02-07] MEDS: MECLIZINE 25 MG TAB PO STA (20:49)
[2025-02-07] MEDS: ONDANSETRON 4 MG/2 ML VIAL IVP STA (20:49)
[2025-02-07] MEDS: ALBUTEROL NEBULIZED 2.5 MG/3 ML INHALATION STA ×2 (20:52→21:06)
[2025-02-07] MEDS: SODIUM CHLORIDE 0.9% 500 ML 500 ML IV ONE (20:54)
[2025-02-07] MEDS ORDERED: NALOXONE 0.4 MG/ML 1 ML VIAL IVP PRN (21:02)
[2025-02-07] MEDS ORDERED: IPRATROPIUM-ALBUTEROL 3 ML NEB INHALATION PRN (21:02)
[2025-02-07] MEDS ORDERED: ACETAMINOPHEN TAB 325 MG TAB PO PRN (21:02)
[2025-02-07] MEDS: AZITHROMYCIN 500 MG in SODIUM CHLORIDE 0.9% 250 ML IVPB STA (21:20)
[2025-02-07 22:16] LABS: VBG PH 7.21 (7.31-7.41)
[2025-02-08] MEDS ORDERED: DEXTROSE 50% SYRINGE 50 ML IVP PRN ×2 (02:47)
--- NOTE | 2025-02-08 02:56 | P.HPIM ---
History of Present Illness H&P Date: 02/07/25 Chief Complaint: Shortness of breath Patient is a 74 year old female with past medical history of COPD (3 L home oxygen), hypertension, hyperlipidemia, diabetes mellitus type 2, remote history of tobacco use presented to the ED with shortness of breath. Patient reports her symptoms started 8:30 AM today morning when she woke up. She experienced difficulty in breathing and it was difficult for her to lay flat. At first she tried to monitor her symptoms at home. Later her son came to check on her today afternoon. EMS administered 1 sublingual nitroglycerin, DuoNeb, 125 mg of Solu- Medrol, 0.3 mg IM epinephrine, 1 mg IV Versed. EMS reported attempting to place the patient on CPAP however the patient was unable to tolerate it, so they placed the patient on BVM. Patient reports having a cough with occasional clear/yellowish green sputum and lower extremity edema. Associated with that the patient complains of nausea but denies vomiting. Denies fever, chills, chest pain, palpitations, abdominal pain, vomiting, hematuria, dysuria, hematochezia, melena, headache, slurred speech, numbness, tingling, dizziness, lightheadedness, blurred vision, double vision. ED documentation reviewed. In the ED patient was treated with meclizine 25 mg, methadone 5 mg, Rocephin 1 g, Zithromax 500 mg, 0.9 normal saline. Vitals on admission T 97.5 F, AK 89 bpm, RR 28, BP 114/82, oxygen saturation 98% on 2 L oxygen via nasal cannula. Currently on 4 L oxygen via nasal cannula and saturating at 99% EKG independently interpreted as sinus rhythm, poor R wave progression, rate 87 bpm, QTc 402 ms Chest x-ray shows no acute pulmonary process Labs on admission show WBC 14.95, hemoglobin 14.3, platelet count 269, INR 1.0, sodium 139, potassium 5.2, bicarb 25, BUN 44, creatinine 1.09, calcium 10.5, magnesium 1.9, ALT 35, NT proBNP 498 Troponin I 0.036, 0.038 VBG shows pH 7.21, pCO2 63, bicarb 25 Review of systems: Pertinent positives and negatives as discussed in HPI, a complete review of systems was performed and all other systems are negative. Physical examination: Vital signs reviewed General: nontoxic, no distress, appears at stated age Derm: warm, dry, intact Head: atraumatic, normocephalic, symmetric Eyes: EOMI, anicteric sclera Mouth: no lip lesion, mucus membranes moist Cardiovascular: S1 S2 reg, no murmur Lungs: wheezing bilaterally Abdominal: soft, non-tender to palpation Extremities: lymphedema bilateral lower extremities, non pitting Neuro: Alert, Oriented, Gross neurological examination did not reveal any focal deficits. Psych: well appearing, appropriate affect Assessment/Plan: Patient is a 74 year old female with past medical history of COPD (3 L home oxygen), hypertension, hyperlipidemia, diabetes mellitus type 2, remote history of tobacco use presented to the ED with shortness of breath. Active: #. Acute on chronic hypoxic respiratory failure #. Acute COPD exacerbation, on home oxygen 3 L #. Leukocytosis Chest x-ray shows no acute pulmonary process VBG shows pH 7.21, pCO2 63, bicarb 25 Continue supplemental oxygen currently on 4 L via nasal cannula Received azithromycin 5 mg, Rocephin 1 g, DuoNeb, Solu-Medrol 125 mg once in the ED Continue Symbicort 160-4.5 mcg inhalation twice daily, DuoNeb 4 times daily and every 2 hours as needed Start IV solumderol 40mg Q12HR Discontinue Prednisone Start Doxycycline 100 mg BID for 7 days for COPD exacerbation Continue guaifenesin 600 mg p.o. every 12 hours Obtain respiratory panel, sputum culture Monitor CBC Consult pulmonology #. Lymphedema Bilateral lower extremities Lasix 40 mg IV once Obtain echocardiogram and LE venous doppler #. NSTEMI type II Troponin I 0.036, 0.038 Trend troponin Monitor for now #. Hyperkalemia Potassium 5.2 on admission Patient does report being on Spironolactone. Home meds not yet confirmed for this vist Monitor BMP #. Elevated creatinine creatinine 1.09 Monitor BMP Chronic: #. Hypertension #. Hyperlipidemia #. Type II diabetes mellitus #. Anxiety/depression Continue amlodipine 10 mg p.o. daily, Zetia 10 mg p.o. daily, insulin sliding scale, losartan 100 mg p.o. daily, rosuvastatin 40 mg p.o. daily, sertraline 50 mg p.o. at bedtime, metoprolol 50 mg p.o. daily, lantus 20 units and insulin sliding scale Resume home meds once confirmed by the pharmacy F: None E: Replete as required N: Heart healthy diet DVT prophylaxis: SCD and Lovenox 40 mg SQ daily GI prophylaxis: Pantoprazole 40 mg PO daily The patient is admitted with an anticipated more than 2 midnight stay for eval uation of shortness of breath CODE STATUS: FULL CODE Discussed with: Patient Anticipated discharge place: Home Past Medical History Past Medical History: Chest Pain / Angina, Diabetes Mellitus, Hypertension Additional Past Medical History / Comment(s): HEMORRHOID, POSITIVE TEST FOR BLOOD IN STOOL., STATES DIFFICULTY WALKING DISTANCE, BACK PAIN. History of Any Multi-Drug Resistant Organisms: None Reported Past Surgical History: Bariatric Surgery, Heart Catheterization, Tonsillectomy Additional Past Surgical History / Comment(s): LAP BAND INSERTED AND REMOVED (SEPTIC), D & C'S, EXCESS SKIN ON ABDOMEN REMOVED -? PANNICULECTOMY. Past Anesthesia/Blood Transfusion Reactions: No Reported Reaction Past Psychological History: Anxiety Smoking Status: Never smoker Past Alcohol Use History: None Reported Past Drug Use History: None Reported - Past Family History Mother Family Medical History: No Reported History Father Additional Family Medical History / Comment(s): Heart problems. Medications and Allergies Home Medications Medication Instructions Recorded Confirmed Type Ezetimibe [Zetia] 10 mg PO DAILY 06/20/17 10/14/21 History Losartan Potassium [Cozaar] 100 mg PO DAILY 06/20/17 10/14/21 History Metoprolol Succinate (ER) [Toprol 50 mg PO DAILY 06/20/17 10/14/21 History XL] Rosuvastatin Calcium [Crestor] 40 mg PO DAILY 06/20/17 10/14/21 History Sertraline HCl [Zoloft] 50 mg PO HS 06/20/17 10/14/21 History amLODIPine [Norvasc] 10 mg PO DAILY 06/20/17 10/14/21 History Insulin Regular [humuLIN R] 20 units SQ AC-BRKFST 10/14/21 10/14/21 History Budesonide [Pulmicort] 1 mg INHALATION RT-BID #120 ml 10/18/21 Rx Insulin Regular [humuLIN R] 8 units SQ AC-SUPPER #0 10/18/21 10/14/21 Rx Ipratropium-Albuterol Nebulize 3 ml INHALATION RT-QID #120 dose 10/18/21 Rx [Duoneb 0.5 mg-3 mg/3 ml Soln] Furosemide [Lasix] 40 mg PO DAILY #30 tablet 10/19/21 Rx Insulin NPH [humuLIN N] 15 unit SQ AC-BRKFST #10 ml 10/19/21 Rx predniSONE 0 mg PO DIRECTED #18 tab 10/19/21 Rx Allergies Allergy/AdvReac Type Severity Reaction Status Date / Time No Known Allergies Allergy Verified 02/07/25 19:36 Physical Exam Vitals: Vital Signs Temp Pulse Pulse Resp BP BP Pulse Ox 02/07/25 21:58 97.3 F L 94 18 133/66 99 02/07/25 21:35 98.5 F 89 20 105/47 97 02/07/25 21:17 92 02/07/25 20:47 86 02/07/25 20:45 86 02/07/25 20:40 89 24 127/58 100 02/07/25 20:16 84 02/07/25 20:15 84 02/07/25 19:52 75 02/07/25 19:30 97.5 F L 89 28 H 114/82 98 Intake and Output 02/07/25 02/07/25 02/07/25 06:59 14:59 22:59 Other: Weight 147.418 kg Results CBC & Chem 7: 02/07/25 19:42 02/07/25 19:42 Labs: Abnormal Lab Results - Last 24 Hours (Table) 02/07/25 02/07/25 02/07/25 Range/Units 19:42 19:42 19:42 WBC 14.95 H (4.50-10.00) 10*3/uL Immature Gran # 0.06 H (0.00-0.04) 10*3/uL Neutrophils # 10.48 H (1.80-7.70) 10*3/uL Monocytes # 1.03 H (0.20-1.00) 10*3/uL Eosinophils # 0.71 H (0.04-0.35) 10*3/uL Basophils # 0.11 H (0.00-0.10) 10*3/uL VBG pH (7.31-7.41) VBG pCO2 (37-51) mmHg Potassium 5.2 H (3.5-5.1) mmol/L BUN 44 H (7-17) mg/dL Creatinine 1.09 H (0.52-1.04) mg/dL Glucose 125 H (74-99) mg/dL Calcium 10.5 H (8.4-10.2) mg/dL ALT 35 H (4-34) U/L Troponin I 0.036 H* (0.000-0.034) ng/mL 02/07/25 Range/Units 22:07 WBC (4.50-10.00) 10*3/uL Immature Gran # (0.00-0.04) 10*3/uL Neutrophils # (1.80-7.70) 10*3/uL Monocytes # (0.20-1.00) 10*3/uL Eosinophils # (0.04-0.35) 10*3/uL Basophils # (0.00-0.10) 10*3/uL VBG pH 7.21 L (7.31-7.41) VBG pCO2 63 H (37-51) mmHg Potassium (3.5-5.1) mmol/L BUN (7-17) mg/dL Creatinine (0.52-1.04) mg/dL Glucose (74-99) mg/dL Calcium (8.4-10.2) mg/dL ALT (4-34) U/L Troponin I (0.000-0.034) ng/mL
[2025-02-08] MEDS: FUROSEMIDE 10 MG/ML 4 ML VIAL IV STA (03:14)
[2025-02-08 04:30] LABS: Influenza A Not Detected (Not Detectd); Influenza B Not Detected (Not Detectd); RSV Not Detected (Not Detectd)
[2025-02-08 06:23] LABS: Glucose,Whole Blood 187 mg/dL (70-110)
[2025-02-08] MEDS: PANTOPRAZOLE 40 MG TABLET PO SCH (06:27)
[2025-02-08] MEDS: INSULIN GLARGINE (LANTUS) 100 UNIT/ML SYR SQ SCH (06:27)
[2025-02-08] MEDS: INSULIN LISPRO (HumaLOG) 100 UNIT/ML 10 mL VL SQ SCH ×2 (06:27→13:38)
[2025-02-08] MEDS ORDERED: BUDESONIDE 0.5 MG/2 ML NEBU INHALATION SCH (08:00)
[2025-02-08] MEDS: IPRATROPIUM-ALBUTEROL 3 ML NEB INHALATION SCH (08:11)
[2025-02-08] MEDS: SYMBICORT 160-4.5 MCG INHALER INHALATION SCH (08:11)
[2025-02-08 08:22] LABS: HCT 44.2 % (37.2-46.3); HGB 14.8 g/dL (12.0-15.0); MCH 32.7 pg (27.0-32.0); MCHC 33.5 g/dL (32.0-37.0); MCV 97.8 fL (80.0-97.0); Mean Platelet Volume 10.7 fL (9.5-12.2); Platelet Count 250 10*3/uL (140-440); RBC 4.52 10*6/uL (4.10-5.20); RDW 12.5 % (11.5-14.5); WBC 13.34 10*3/uL (4.50-10.00)
[2025-02-08 08:36] LABS: African American GFR (CKD) 53 (>60 ml/min/1.73 sqM); Anion Gap 6 mmol/L; Blood Urea Nitrogen 45 mg/dL (7-17); Calcium 10.5 mg/dL (8.4-10.2); Carbon Dioxide 28 mmol/L (22-30); Chloride 105 mmol/L (98-107); Glucose 200 mg/dL (74-99); Non-African American GFR(CKD) 46 (>60 ml/min/1.73 sqM); Potassium 5.5 mmol/L (3.5-5.1); Sodium 139 mmol/L (137-145)
[2025-02-08] MEDS: guaiFENesin 600 MG TABLET.ER PO SCH (08:48)
[2025-02-08] MEDS: ENOXAPARIN 40 MG/0.4 ML SYRINGE SQ SCH (08:48)
[2025-02-08] MEDS: DOXYCYCLINE 100 MG TABLET PO SCH (08:48)
[2025-02-08] MEDS ORDERED: predniSONE 20 MG TAB PO SCH (09:00)
[2025-02-08] MEDS ORDERED: methylPREDNISolone SOD SUCCI 40 MG/ML 1 ML VIAL IV SCH (09:00)
[2025-02-08 10:03] LABS: Glucose,Whole Blood 307 mg/dL (70-110)
[2025-02-08] MEDS: INSULIN REGULAR 100 UNIT/ML VIAL (IV) IV ONE (10:14)
--- NOTE | 2025-02-08 10:38 | US ---
EXAMINATION TYPE: US venous doppler duplex LE DATE OF EXAM: 02/08/2025 9:50 AM Exam done portable COMPARISON: US 2009 CLINICAL INDICATION: Female, 74 years old with history of swelling, elevated d-dimer; TECHNIQUE: The lower extremity deep venous system is examined utilizing real time linear array sonog afsaneh with graded compression, color doppler sonography, and spectral doppler. SIDE PERFORMED: Bilateral FINDINGS: VESSELS IMAGED: Common Femoral Vein Deep Femoral Vein Greater Saphenous Vein * Femoral Vein Popliteal Vein Small Saphenous Vein * Proximal Calf Veins (* superficial vessels) Extremely difficult and severely limited exam due to morbidly obese patient with bilateral leg swel ling Right Leg: Visualized portions of femoral vein and popliteal vein show some flow but did not emanuel s Right EIV,GSV, CFV, deep femoral vein and proximal femoral vein not imaged, distal femoral vein not s een and unable to obtain sagittal images of popliteal vein due to above limitations Left Leg: Visualized portions of femoral vein and popliteal vein appear negative for DVT Left EIV, GSV, CFV, deep femoral vein and proximal femoral vein not imaged, and distal femoral vein n ot seen due to above limitations IMPRESSION: 1. Limitation of the examination. 2. Noncompressible right lower extremity deep venous structures. However, some flow is evident. Nonob structive deep venous thrombosis should be suspected right lower extremity A Red level critical message alert has been initiated for Heladio Dawn MD via the [employer] on 02/08/2025 10:35 AM. This message alert has been sent to Heladio Dawn MD via the preferences provided by the clinician for the receipt of Radiology Critical Findings. Message ID [id number]. [facility], , 02/08/2025 10:35 AM
[2025-02-08 11:04] LABS: Glucose,Whole Blood 292 mg/dL (70-110)
[2025-02-08] MEDS: DEXTROSE 50% SYRINGE 50 ML IVP ONE (11:14)
[2025-02-08 11:58] LABS: Glucose,Whole Blood 278 mg/dL (70-110)
[2025-02-08] MEDS: methylPREDNISolone SOD SUCCI 125 MG/2 ML VIAL IV SCH (12:00)
[2025-02-08] MEDS: Apixaban Initiation Dose--VTE 5 MG TAB PO SCH (12:00)
--- NOTE | 2025-02-08 12:11 | P.CNPUL ---
History of Present Illness Consult date: 02/08/25 Requesting physician: Laurel Partida Reason for consult: dyspnea, COPD Chief complaint: Shortness of breath History of present illness: This is a pleasant 74-year-old female patient with a history of obesity with previous lap band insertion and subsequent removal, diabetes mellitus, hypertension, hyperlipidemia, lower extremity lymphadenopathy with chronic venous stasis changes, former smoker, chronic obstructive pulmonary disease on home oxygen, anxiety. She presented here to the emergency room with a 1 day history of shortness of breath and orthopnea. Chest x-ray reveals no acute pulmonary process. White count 13.3. Hemoglobin 14.8. Platelets 250. Sodium 139. Potassium 5.5. Bicarb 28. BUN 45. Creatinine 1.18. Glucose 200. Troponin 0.036, 0.038. Rate and 98. Viral screen is negative. She is seen today in consultation on the regular medical floor. She is currently resting in bed. Awake and alert in no acute distress. Feeling a bit better today compared to yesterday. Maintaining O2 saturations in the 90s on 3 L/min per nasal cannula. She has been afebrile. Hemodynamically stable. Review of Systems REVIEW OF SYSTEMS: CONSTITUTIONAL: Denies any recent significant weight loss or weight gain. EYES: Denies change in vision. EARS, NOSE, MOUTH, THROAT: Denies headaches, denies sore throat. CARDIOVASCULAR: Denies chest pain, palpitations or syncopal episodes. RESPIRATORY: Positive for shortness of breath, cough, congestion no hemoptysis. GASTROINTESTINAL: Denies change in appetite, denies abdominal pain GENITOURINARY: Denies hematuria, denies infections. MUSKULOSKELETAL: Positive for chronic swelling. INTEGUMENTARY: Denies rash, denies eczema. NEUROLOGICAL: Denies recent memory loss, no recent seizure activity. PSYCHIATRIC: Denies anxiety, denies depression. HEMATOLOGIC/LYMPHATIC: Denies anemia, denies enlarged lymph nodes. Past Medical History Past Medical History: Chest Pain / Angina, Diabetes Mellitus, Hypertension Additional Past Medical History / Comment(s): HEMORRHOID, POSITIVE TEST FOR BLOOD IN STOOL., STATES DIFFICULTY WALKING DISTANCE, BACK PAIN. History of Any Multi-Drug Resistant Organisms: None Reported Past Surgical History: Bariatric Surgery, Heart Catheterization, Tonsillectomy Additional Past Surgical History / Comment(s): LAP BAND INSERTED AND REMOVED (SEPTIC), D & C'S, EXCESS SKIN ON ABDOMEN REMOVED -? PANNICULECTOMY. Past Anesthesia/Blood Transfusion Reactions: No Reported Reaction Past Psychological History: Anxiety Smoking Status: Never smoker Past Alcohol Use History: None Reported Past Drug Use History: None Reported - Past Family History Mother Family Medical History: No Reported History Father Family Medical History: Congestive Heart Failure (CHF), COPD Additional Family Medical History / Comment(s): Heart problems. Medications and Allergies Home Medications Medication Instructions Recorded Confirmed Type Ezetimibe [Zetia] 10 mg PO DAILY 06/20/17 02/08/25 History Losartan Potassium [Cozaar] 100 mg PO DAILY 06/20/17 02/08/25 History Metoprolol Succinate (ER) [Toprol 50 mg PO DAILY 06/20/17 02/08/25 History XL] Rosuvastatin Calcium [Crestor] 40 mg PO DAILY 06/20/17 02/08/25 History Sertraline HCl [Zoloft] 50 mg PO HS 06/20/17 02/08/25 History Insulin Regular [humuLIN R] 20 units SQ DAILY 10/14/21 02/08/25 History Albuterol Inhaler [Ventolin Hfa 2 puff INHALATION RT-QID PRN 02/08/25 02/08/25 History Inhaler] Chlorthalidone 50 mg PO DAILY 02/08/25 02/08/25 History Insulin Regular [humuLIN R] 1 - 10 units SQ HS 02/08/25 02/08/25 History Ipratropium-Albuterol Nebulize 3 ml INHALATION RT-QID PRN 02/08/25 02/08/25 Hi story [Duoneb 0.5 mg-3 mg/3 ml Soln] Spironolactone [Aldactone] 25 mg PO DAILY 02/08/25 02/08/25 History amLODIPine [Norvasc] 5 mg PO DAILY 02/08/25 02/08/25 History Allergies Allergy/AdvReac Type Severity Reaction Status Date / Time No Known Allergies Allergy Verified 02/08/25 11:41 Physical Exam Vitals: Vital Signs Temp Pulse Pulse Resp BP BP Pulse Ox 02/08/25 11:27 84 02/08/25 11:14 84 02/08/25 08:20 88 02/08/25 08:11 82 02/08/25 07:10 97.5 F L 88 18 131/76 95 02/08/25 01:36 97.3 F L 93 19 132/68 99 02/07/25 21:58 97.3 F L 94 18 133/66 99 02/07/25 21:35 98.5 F 89 20 105/47 97 02/07/25 21:17 92 02/07/25 20:47 86 02/07/25 20:45 86 02/07/25 20:40 89 24 127/58 100 02/07/25 20:16 84 02/07/25 20:15 84 02/07/25 19:52 75 02/07/25 19:30 97.5 F L 89 28 H 114/82 98 Intake and Output 02/07/25 02/08/25 02/08/25 22:59 06:59 14:59 Output Total 1000 Balance -1000 Output: Urine 1000 Other: Voiding Method Diaper External Catheter # Voids 450 Weight 147.418 kg GENERAL EXAM: Alert, pleasant, morbidly obese 74-year-old female, on 3 L nasal cannula, comfortable in no apparent distress. HEAD: Normocephalic. EYES: Normal reaction of pupils, equal size. NOSE: Clear with pink turbinates. THROAT: No erythema or exudates. NECK: No masses, no JVD. CHEST: No chest wall deformity. LUNGS: Equal air entry with no crackles, wheeze, rhonchi or dullness. CVS: S1 and S2 normal with no audible murmur, regular rhythm. ABDOMEN: No hepatosplenomegaly, normal bowel sounds, no guarding or rigidity. SPINE: No scoliosis or deformity SKIN: No rashes CENTRAL NERVOUS SYSTEM: No focal deficits, tone is normal in all 4 extremities. EXTREMITIES: There is no peripheral edema. No clubbing, no cyanosis. Peripheral pulses are intact. Results - Laboratory Findings CBC and BMP: 02/08/25 08:06 02/08/25 08:06 PT/INR, D-dimer PT 11.0 sec (10.0-12.5) 02/07/25 19:42 INR 1.0 (<1.2) 02/07/25 19:42 Abnormal lab findings: Abnormal Labs 02/07/25 02/07/25 02/07/25 19:42 19:42 19:42 WBC 14.95 H MCV MCH Immature Gran # 0.06 H Neutrophils # 10.48 H Monocytes # 1.03 H Eosinophils # 0.71 H Basophils # 0.11 H VBG pH VBG pCO2 Potassium 5.2 H BUN 44 H Creatinine 1.09 H Glucose 125 H POC Glucose (mg/dL) Calcium 10.5 H ALT 35 H Troponin I 0.036 H* 02/07/25 02/07/25 02/07/25 22:07 22:07 23:36 WBC MCV MCH Immature Gran # Neutrophils # Monocytes # Eosinophils # Basophils # VBG pH 7.21 L VBG pCO2 63 H Potassium BUN Creatinine Glucose POC Glucose (mg/dL) Calcium ALT Troponin I 0.038 H* 0.041 H* 02/08/25 02/08/25 02/08/25 04:20 06:21 08:06 WBC MCV MCH Immature Gran # Neutrophils # Monocytes # Eosinophils # Basophils # VBG pH VBG pCO2 Potassium BUN Creatinine Glucose POC Glucose (mg/dL) 187 H Calcium ALT Troponin I 0.036 H* 0.038 H* 02/08/25 02/08/25 02/08/25 08:06 08:06 10:02 WBC 13.34 H MCV 97.8 H MCH 32.7 H Immature Gran # Neutrophils # Monocytes # Eosinophils # Basophils # VBG pH VBG pCO2 Potassium 5.5 H BUN 45 H Creatinine 1.18 H Glucose 200 H POC Glucose (mg/dL) 307 H Calcium 10.5 H ALT Troponin I 02/08/25 11:02 WBC MCV MCH Immature Gran # Neutrophils # Monocytes # Eosinophils # Basophils # VBG pH VBG pCO2 Potassium BUN Creatinine Glucose POC Glucose (mg/dL) 292 H Calcium ALT Troponin I - Diagnostic Findings Chest x-ray: image reviewed Assessment and Plan Assessment: Acute on chronic hypoxemic respiratory failure secondary to an exacerbation of chronic obstructive pulmonary disease, restrictive lung disease due to obesity. Chest x-ray reveals no acute process. Viral screen negative Chronic hypoxic respiratory failure maintained on oxygen at 3 L/min per nasal cannula Morbid obesity with a BMI of 57.6 kg/m. History of previous lap band procedure and subsequent removal Former smoker Acute kidney injury Hyperkalemia secondary to above Troponin leak Lymphedema with chronic changes of venous stasis of the lower extremities Nonobstructive DVT of the right lower extremity, initiated on Eliquis Diabetes mellitus, type 2 Hyperlipidemia Hypertension History of anxiety Plan: The patient was seen and evaluated Imaging, labs and medications reviewed Possible nonobstructing DVT in the right leg Initiated on Eliquis Chest x-ray reveals no acute process Initiated on DuoNeb inhalations Initiated on Symbicort Initiated on Solu-Medrol Empiric antibiotics in the form of doxycycline Initiated on Mucinex Resume home medications Has home oxygen at 3 L/min per nasal cannula Discussed the plan of care with the patient who verbalizes understanding and is in agreement We will continue to follow and make further recommendations based on her clinical status I have personally seen and examined the patient, performed the documentation and the assessment and plan as written. Number of minutes spent on the visit: 20 Dictation was produced using [employer] dictation software. Please excuse any grammatical, word or spelling errors. Time with Patient: Greater than 30
--- NOTE | 2025-02-08 13:54 | P.PN ---
Subjective Progress Note Date: 02/08/25 Hospital Course: Patient is a 74 year old female with past medical history of COPD (3 L home ox ygen), hypertension, hyperlipidemia, diabetes mellitus type 2, remote history of tobacco use presented to the ED with shortness of breath. Patient reports her symptoms started 8:30 AM today morning when she woke up. She experienced difficulty in breathing and it was difficult for her to lay flat. At first she tried to monitor her symptoms at home. Later her son came to check on her today afternoon. EMS administered 1 sublingual nitroglycerin, DuoNeb, 125 mg of Solu- Medrol, 0.3 mg IM epinephrine, 1 mg IV Versed. EMS reported attempting to place the patient on CPAP however the patient was unable to tolerate it, so they placed the patient on BVM. Patient reports having a cough with occasional clear/yellowish green sputum and lower extremity edema. Associated with that the patient complains of nausea but denies vomiting. Denies fever, chills, chest pain, palpitations, abdominal pain, vomiting, hematuria, dysuria, hematochezia, melena, headache, slurred speech, numbness, tingling, dizziness, lightheadedness, blurred vision, double vision. ED documentation reviewed. In the ED patient was treated with meclizine 25 mg, methadone 5 mg, Rocephin 1 g, Zithromax 500 mg, 0.9 normal saline. Vitals on admission T 97.5 F, MN 89 bpm, RR 28, BP 114/82, oxygen saturation 98% on 2 L oxygen via nasal cannula. Currently on 4 L oxygen via nasal cannula and saturating at 99% EKG independently interpreted as sinus rhythm, poor R wave progression, rate 87 bpm, QTc 402 ms Chest x-ray shows no acute pulmonary process Labs on admission show WBC 14.95, hemoglobin 14.3, platelet count 269, INR 1.0, sodium 139, potassium 5.2, bicarb 25, BUN 44, creatinine 1.09, calcium 10.5, magnesium 1.9, ALT 35, NT proBNP 498 Troponin I 0.036, 0.038 VBG shows pH 7.21, pCO2 63, bicarb 25 Admitted for further management of acute on chronic hypoxic respiratory failure secondary to COPD exacerbation, pulmonology consulted For evaluation of lymphedema, bilateral lower extremity duplex was ordered and was positive for DVT on the right side, started on Eliquis. TTE ordered Pulmonology consulted, patient was continued on Solu-Medrol, breathing treatments, Pertinent Imaging: Bilateral lower extremity venous duplex Subjective: Feels improvement in her breathing, still somewhat short of breath Pertinent positives and negatives as discussed above, a complete review of systems was performed and all other systems are negative. Vitals Signs Reviewed. General: [nontoxic], [no distress], [appears at stated age], obese Derm: [warm], [dry] Head: [atraumatic], [normocephalic], [symmetric] Eyes: [EOMI], [no lid lag], [anicteric sclera] Mouth: [no lip lesion], [mucus membranes moist] Cardiovascular: [S1S2 reg], [no murmur] Lungs: Bilateral wheezing appreciated Abdominal: [soft], [ nontender to palpation], [no guarding], [no appreciable organomegaly] Ext: [no gross muscle atrophy], [bilateral lymphedema Neuro: [ CN II-XI grossly intact], [no focal neuro deficits] Psych: [Alert], [oriented], [appropriate affect] Data Reviewed Today: Pertinent Labs: WBC 13.3, hemoglobin normal, platelet count normal, potassium 5.5, creatinine 1.18, glucose 200#. Acute on chronic hypoxic respiratory failure Assessment and plan Acute on chronic hypoxic hypercapnic respiratory failure secondary to COPD exa cerbation, on home oxygen 3 L Leukocytosis Chest x-ray shows no acute pulmonary process VBG shows pH 7.21, pCO2 63, bicarb 25 Continue supplemental oxygen currently on 4 L via nasal cannula Continue Symbicort 160-4.5 mcg inhalation twice daily, DuoNeb 4 times daily and every 2 hours as needed IV solumderol 40mg Q12HR Start Doxycycline 100 mg BID for 7 days for COPD exacerbation Continue guaifenesin 600 mg p.o. every 12 hours Obtain respiratory panel, sputum culture Monitor CBC Consult pulmonology Lymphedema Bilateral lower extremities Lasix 40 mg IV once right lower extremity DVT -Started on Eliquis 10 mg twice daily for 7 days followed by 5 mg twice daily on 02/08 NSTEMI type II Troponin I 0.036, 0.038 Trend troponin Monitor for now TTE ordered and pending Hyperkalemia Potassium 5.2 on admission>5.5 Patient does report being on Spironolactone. Currently holding Monitor BMP Received insulin and dextrose, recheck BMP ordered Elevated creatinine creatinine Monitor BMP Hypertension Hyperlipidemia Type II diabetes mellitus Anxiety/depression Continue amlodipine 10 mg p.o. daily, Zetia 10 mg p.o. daily, insulin sliding scale, losartan 100 mg p.o. daily, rosuvastatin 40 mg p.o. daily, sertraline 50 mg p.o. at bedtime, metoprolol 50 mg p.o. daily, lantus 20 units and insulin sliding scale, added Humalog 5 units with mealtime to achieve better glucose control Hold spironolactone CODE STATUS: FULL CODE Discussed with: Patient Anticipated discharge place: Home Objective - Vital Signs Vital signs: Vital Signs Temp 97.6 F 02/08/25 13:35 Pulse 92 02/08/25 13:35 Resp 18 02/08/25 13:35 BP 119/74 02/08/25 13:35 Pulse Ox 96 02/08/25 13:35 FiO2 Intake & Output 02/07/25 02/08/25 02/08/25 18:59 06:59 18:59 Output Total 1000 Balance -1000 Weight 147.418 kg Output: Urine 1000 Other: Voiding Method Diaper External Catheter # Voids 450 # Bowel Movements 0 - Labs CBC & Chem 7: 02/08/25 08:06 02/08/25 08:06 Labs: Abnormal Lab Results - Last 24 Hours (Table) 02/07/25 02/07/25 02/07/25 Range/Units 19:42 19:42 19:42 WBC 14.95 H (4.50-10.00) 10*3/uL MCV (80.0-97.0) fL MCH (27.0-32.0) pg Immature Gran # 0.06 H (0.00-0.04) 10*3/uL Neutrophils # 10.48 H (1.80-7.70) 10*3/uL Monocytes # 1.03 H (0.20-1.00) 10*3/uL Eosinophils # 0.71 H (0.04-0.35) 10*3/uL Basophils # 0.11 H (0.00-0.10) 10*3/uL VBG pH (7.31-7.41) VBG pCO2 (37-51) mmHg Potassium 5.2 H (3.5-5.1) mmol/L BUN 44 H (7-17) mg/dL Creatinine 1.09 H (0.52-1.04) mg/dL Glucose 125 H (74-99) mg/dL POC Glucose (mg/dL) (70-110) mg/dL Calcium 10.5 H (8.4-10.2) mg/dL ALT 35 H (4-34) U/L Troponin I 0.036 H* (0.000-0.034) ng/mL 02/07/25 02/07/25 02/07/25 Range/Units 22:07 22:07 23:36 WBC (4.50-10.00) 10*3/uL MCV (80.0-97.0) fL MCH (27.0-32.0) pg Immature Gran # (0.00-0.04) 10*3/uL Neutrophils # (1.80-7.70) 10*3/uL Monocytes # (0.20-1.00) 10*3/uL Eosinophils # (0.04-0.35) 10*3/uL Basophils # (0.00-0.10) 10*3/uL VBG pH 7.21 L (7.31-7.41) VBG pCO2 63 H (37-51) mmHg Potassium (3.5-5.1) mmol/L BUN (7-17) mg/dL Creatinine (0.52-1.04) mg/dL Glucose (74-99) mg/dL POC Glucose (mg/dL) (70-110) mg/dL Calcium (8.4-10.2) mg/dL ALT (4-34) U/L Troponin I 0.038 H* 0.041 H* (0.000-0.034) ng/mL 02/08/25 02/08/25 02/08/25 Range/Units 04:20 06:21 08:06 WBC (4.50-10.00) 10*3/uL MCV (80.0-97.0) fL MCH (27.0-32.0) pg Immature Gran # (0.00-0.04) 10*3/uL Neutrophils # (1.80-7.70) 10*3/uL Monocytes # (0.20-1.00) 10*3/uL Eosinophils # (0.04-0.35) 10*3/uL Basophils # (0.00-0.10) 10*3/uL VBG pH (7.31-7.41) VBG pCO2 (37-51) mmHg Potassium (3.5-5.1) mmol/L BUN (7-17) mg/dL Creatinine (0.52-1.04) mg/dL Glucose (74-99) mg/dL POC Glucose (mg/dL) 187 H (70-110) mg/dL Calcium (8.4-10.2) mg/dL ALT (4-34) U/L Troponin I 0.036 H* 0.038 H* (0.000-0.034) ng/mL 02/08/25 02/08/25 02/08/25 Range/Units 08:06 08:06 10:02 WBC 13.34 H (4.50-10.00) 10*3/uL MCV 97.8 H (80.0-97.0) fL MCH 32.7 H (27.0-32.0) pg Immature Gran # (0.00-0.04) 10*3/uL Neutrophils # (1.80-7.70) 10*3/uL Monocytes # (0.20-1.00) 10*3/uL Eosinophils # (0.04-0.35) 10*3/uL Basophils # (0.00-0.10) 10*3/uL VBG pH (7.31-7.41) VBG pCO2 (37-51) mmHg Potassium 5.5 H (3.5-5.1) mmol/L BUN 45 H (7-17) mg/dL Creatinine 1.18 H (0.52-1.04) mg/dL Glucose 200 H (74-99) mg/dL POC Glucose (mg/dL) 307 H (70-110) mg/dL Calcium 10.5 H (8.4-10.2) mg/dL ALT (4-34) U/L Troponin I (0.000-0.034) ng/mL 02/08/25 02/08/25 Range/Units 11:02 11:53 WBC (4.50-10.00) 10*3/uL MCV (80.0-97.0) fL MCH (27.0-32.0) pg Immature Gran # (0.00-0.04) 10*3/uL Neutrophils # (1.80-7.70) 10*3/uL Monocytes # (0.20-1.00) 10*3/uL Eosinophils # (0.04-0.35) 10*3/uL Basophils # (0.00-0.10) 10*3/uL VBG pH (7.31-7.41) VBG pCO2 (37-51) mmHg Potassium (3.5-5.1) mmol/L BUN (7-17) mg/dL Creatinine (0.52-1.04) mg/dL Glucose (74-99) mg/dL POC Glucose (mg/dL) 292 H 278 H (70-110) mg/dL Calcium (8.4-10.2) mg/dL ALT (4-34) U/L Troponin I (0.000-0.034) ng/mL
--- NOTE | 2025-02-08 15:52 | CA ---
Transthoracic Echo Report Name: Cintia Paulson Age: 74 Gender: F : 1950 Exam Date: 02/08/2025 14:30 Exam Location: [facility] Ht (in): 63 Wt (lb): 325 Ordering Physician: Laurel Partida MD Attending/Referring Phys: Workforce Planning Analyst Rona Hobson RDCS Procedure CPT: Indications: lower extremity swelling Cardiac Hx: Technical Quality: Technically difficult study Contrast 1: Definity Total Dose (mL): 2 Contrast 2: Total Dose (mL): MEASUREMENTS (Male / Female) Normal Values 2D ECHO LV Diastolic Diameter PLAX 4.1 cm 4.2 - 5.9 / 3.9 - 5.3 cm LV Systolic Diameter PLAX 2.4 cm IVS Diastolic Thickness 1.4 cm 0.6 - 1.0 / 0.6 - 0.9 cm LVPW Diastolic Thickness 1.1 cm 0.6 - 1.0 / 0.6 - 0.9 cm LV Relative Wall Thickness 0.6 RV Internal Dim ED PLAX 4.3 cm LVOT Diameter 1.7 cm DOPPLER LVOT Peak Velocity 77.2 cm/s LVOT Peak Gradient 2.4 mmHg LVOT Velocity Time Integral 12.7 cm LVOT Stroke Volume 30.4 cm??? LVOT Stroke Volume Index 12.8 ml/m??? LVOT Cardiac Index 1063.1 cm???/min???m??? FINDINGS Left Ventricle Left ventricular cavity size normal. No obvious regional wall motion abnormalities. Left ventricular ejection fraction is estimated at 55-60 %.Mildly increased left ventricular wall thickness. Right Ventricle Moderate right ventricular dilatation. Right Atrium Right atrial dilatation. Left Atrium Left atrium not well visualized. Normal left atrial size. Mitral Valve Mitral valve not well visualized. No mitral stenosis, regurgitation or prolapse. Aortic Valve Trileaflet aortic valve. No aortic valve stenosis or regurgitation. Tricuspid Valve Structurally normal tricuspid valve. Mild tricuspid regurgitation. Pulmonic Valve No pulmonic regurgitation.pulmonic valve not well visualized. Pericardium No pericardial effusion.echo free space anterior to the right ventricle likely represents a fat pad. Aorta Aortic root and proximal ascending aorta not well visualized. CONCLUSIONS Technically difficult study. Definity ECHO contrast used for improved visualization of the endocardial borders (inadequate visualization of two or more contiguous segments). Normal left ventricular size and systolic function Very limited Doppler study with mild tricuspid regurgitation Previewed by: Dr. Serena Gao MD (Electronically Signed) Final Date: 08 February 2025 15:51
[2025-02-08 17:09] LABS: Glucose,Whole Blood 395 mg/dL (70-110)
[2025-02-08 19:33] LABS: Glucose,Whole Blood 412 mg/dL (70-110)
[2025-02-08] MEDS: SERTRALINE 50 MG TAB PO SCH (21:46)
[2025-02-09 06:08] LABS: Glucose,Whole Blood 372 mg/dL (70-110)
[2025-02-09] MEDS: INSULIN GLARGINE (LANTUS) 100 UNIT/ML SYR SQ SCH (06:20)
[2025-02-09] MEDS: EZETIMIBE 10 MG TAB PO SCH (08:14)
[2025-02-09] MEDS: amLODIPine 5 MG TAB PO SCH (08:14)
[2025-02-09] MEDS: ATORVASTATIN 80 MG TAB PO SCH (08:14)
[2025-02-09] MEDS: CHLORTHALIDONE 25 MG TAB PO SCH (08:14)
[2025-02-09] MEDS: METOPROLOL SUCCINATE (ER) 50 MG TAB.ER.24H PO SCH (08:14)
[2025-02-09] MEDS: LOSARTAN 50 MG TAB PO SCH (08:14)
[2025-02-09 08:41] LABS: African American GFR (CKD) 49 (>60 ml/min/1.73 sqM); Anion Gap 4 mmol/L; Blood Urea Nitrogen 53 mg/dL (7-17); Calcium 10.2 mg/dL (8.4-10.2); Carbon Dioxide 28 mmol/L (22-30); Chloride 104 mmol/L (98-107); Glucose 359 mg/dL (74-99); Non-African American GFR(CKD) 43 (>60 ml/min/1.73 sqM); Potassium 5.2 mmol/L (3.5-5.1); Sodium 136 mmol/L (137-145)
--- NOTE | 2025-02-09 10:55 | P.PN ---
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 She was brought into the emergency room early this morning after waking up feeling very short of breath, weak and had recently been sustaining falls at home. Stating that her legs give out. Chest x-ray reveals a 5.4 x 7.6 cm left upper lobe mass. CT angiogram reveals the same mass in the left peripheral upper outer lung field. This extends to the hilum. No suspicious hilar mediastinal nodes evident. No acute pulmonary embolism. Count 7.8. Hemoglobin 12.6. Platelets 245. Sodium 132. Potassium 4.3. Bicarb 29. BUN 13. Creatinine 0.53. Glucose 99. Troponin negative x 1. proBNP 859. Urinalysis clean. Viral screen negative. She is seen today in consultation in the emergency department. She is currently resting on a stretcher. She is very frail and cachectic appearing. She is maintaining O2 saturations in the upper 90s on 2 L/min per nasal cannula. She is afebrile. Hemodynamically stable. Her daughter is at the bedside providing most of the information. The patient is seen today February 09, 2025 in follow-up on the regular medical floor. She is currently resting in bed. She is somewhat difficult to arouse but arousable. She is maintaining O2 saturations in the high 90s on 2 L/min per nasal cannula. She is afebrile. Hemodynamically stable. Sodium 130. Potassium 4.8. Bicarb 27. BUN 14. Creatinine 0.45. Glucose 132. She remains on DuoNeb inhalations, Decadron 4 mg IV push every 4 hours. Lovenox for DVT prophylaxis. CT scan of the brain did show a large peripherally enhancing thick-walled intracranial mass in the left occipital lobe measuring 5 x 3 x 4 with significant surrounding vasogenic edema. Most likely malignancy/metastasis. The patient's daughter is at the bedside and aware of the CT scan of the brain report. They are considering hospice. Objective - Vital Signs Vital signs: Vital Signs Temp 97.8 F 02/09/25 07:25 Pulse 88 02/09/25 08:12 Resp 18 02/09/25 07:25 BP 141/70 02/09/25 07:25 Pulse Ox 97 02/09/25 07:58 FiO2 Intake & Output 02/08/25 02/09/25 02/09/25 18:59 06:59 18:59 Intake Total 540 Output Total 1000 100 Balance -460 -100 Intake: Oral 540 Output: Urine 1000 100 Other: Voiding Method Diaper Diaper External Catheter External Catheter # Voids 1 # Bowel Movements 0 0 - Exam GENERAL EXAM: Arousable, weak, frail 87-year-old female, on 2 L nasal cannula, in no apparent distress. HEAD: Normocephalic. EYES: Normal reaction of pupils, equal size. NOSE: Clear with pink turbinates. THROAT: No erythema or exudates. NECK: No masses, no JVD. CHEST: No chest wall deformity. LUNGS: Equal air entry with no crackles, wheeze, rhonchi or dullness. CVS: S1 and S2 normal with no audible murmur, regular rhythm. ABDOMEN: No hepatosplenomegaly, normal bowel sounds, no guarding or rigidity. SPINE: No scoliosis or deformity SKIN: No rashes CENTRAL NERVOUS SYSTEM: No focal deficits, tone is normal in all 4 extremities. EXTREMITIES: There is no peripheral edema. No clubbing, no cyanosis. Peripheral pulses are intact. - Labs CBC & Chem 7: 02/08/25 08:06 02/09/25 08:11 Labs: Abnormal Lab Results - Last 24 Hours (Table) 02/08/25 02/08/25 02/08/25 Range/Units 08:09 11:02 11:53 Sodium (137-145) mmol/L Potassium (3.5-5.1) mmol/L BUN (7-17) mg/dL Creatinine (0.52-1.04) mg/dL Glucose (74-99) mg/dL POC Glucose (mg/dL) 292 H 278 H (70-110) mg/dL Hemoglobin A1c 7.7 H (<=6.0) % 02/08/25 02/08/25 02/08/25 Range/Units 13:20 17:08 19:31 Sodium (137-145) mmol/L Potassium 5.5 H (3.5-5.1) mmol/L BUN (7-17) mg/dL Creatinine (0.52-1.04) mg/dL Glucose (74-99) mg/dL POC Glucose (mg/dL) 395 H 412 H (70-110) mg/dL Hemoglobin A1c (<=6.0) % 02/09/25 02/09/25 Range/Units 06:06 08:11 Sodium 136 L (137-145) mmol/L Potassium 5.2 H (3.5-5.1) mmol/L BUN 53 H (7-17) mg/dL Creatinine 1.25 H (0.52-1.04) mg/dL Glucose 359 H (74-99) mg/dL POC Glucose (mg/dL) 372 H (70-110) mg/dL Hemoglobin A1c (<=6.0) % Assessment and Plan Assessment: Acute on chronic hypoxemic respiratory failure secondary to an exacerbation of chronic obstructive pulmonary disease, restrictive lung disease due to obesity. Chest x-ray reveals no acute process. Viral screen negative Altered mental status, weakness and falls. CT scan of the brain did show a large peripherally enhancing thick-walled intracranial mass in the left occipital lobe measuring 5 x 3 x 4 with significant surrounding vasogenic edema. Most likely malignancy/metastasis. Chronic hypoxic respiratory failure maintained on oxygen at 3 L/min per nasal cannula Morbid obesity with a BMI of 57.6 kg/m. History of previous lap band procedure and subsequent removal Former smoker Acute kidney injury Hyperkalemia secondary to above Troponin leak Lymphedema with chronic changes of venous stasis of the lower extremities Nonobstructive DVT of the right lower extremity, initiated on Eliquis Diabetes mellitus, type 2 Hyperlipidemia Hypertension History of anxiety Plan: The patient was seen and evaluated Imaging, labs and medications reviewed Large brain mass on CT scan Family is at the bedside and aware They are considering hospice Continued on bronchodilators Normal saline at 50 mL/h I have personally seen and examined the patient, performed the documentation and the assessment and plan as written. Number of minutes spent on the visit: 10 Dictation was produced using [employer] dictation software. Please excuse any grammatical, word or spelling errors.
--- NOTE | 2025-02-09 10:55 | P.PN ---
Subjective Progress Note Date: 02/09/25 Hospital Course: Patient is a 74 year old female with past medical history of COPD (3 L home ox ygen), hypertension, hyperlipidemia, diabetes mellitus type 2, remote history of tobacco use presented to the ED with shortness of breath. Patient reports her symptoms started 8:30 AM today morning when she woke up. She experienced difficulty in breathing and it was difficult for her to lay flat. At first she tried to monitor her symptoms at home. Later her son came to check on her today afternoon. EMS administered 1 sublingual nitroglycerin, DuoNeb, 125 mg of Solu- Medrol, 0.3 mg IM epinephrine, 1 mg IV Versed. EMS reported attempting to place the patient on CPAP however the patient was unable to tolerate it, so they placed the patient on BVM. Patient reports having a cough with occasional clear/yellowish green sputum and lower extremity edema. Associated with that the patient complains of nausea but denies vomiting. Denies fever, chills, chest pain, palpitations, abdominal pain, vomiting, hematuria, dysuria, hematochezia, melena, headache, slurred speech, numbness, tingling, dizziness, lightheadedness, blurred vision, double vision. ED documentation reviewed. In the ED patient was treated with meclizine 25 mg, methadone 5 mg, Rocephin 1 g, Zithromax 500 mg, 0.9 normal saline. Vitals on admission T 97.5 F, PA 89 bpm, RR 28, BP 114/82, oxygen saturation 98% on 2 L oxygen via nasal cannula. Currently on 4 L oxygen via nasal cannula and saturating at 99% EKG independently interpreted as sinus rhythm, poor R wave progression, rate 87 bpm, QTc 402 ms Chest x-ray shows no acute pulmonary process Labs on admission show WBC 14.95, hemoglobin 14.3, platelet count 269, INR 1.0, sodium 139, potassium 5.2, bicarb 25, BUN 44, creatinine 1.09, calcium 10.5, magnesium 1.9, ALT 35, NT proBNP 498 Troponin I 0.036, 0.038 VBG shows pH 7.21, pCO2 63, bicarb 25 Admitted for further management of acute on chronic hypoxic respiratory failure secondary to COPD exacerbation, pulmonology consulted For evaluation of lymphedema, bilateral lower extremity duplex was ordered and was positive for DVT on the right side, started on Eliquis. TTE ordered Pulmonology consulted, patient was continued on Solu-Medrol, breathing treatments, 02/09 noted improvement in her breathing, potassium came back elevated again, ordered a dose of Lokelma 10, creatinine rising 1.25, started on IV hydration with normal saline at 75 cc/h, hold losartan 100 daily, in the meantime increase amlodipine from 5 to 10 mg daily, insulins adjusted for hyperglycemia. TTE was suboptimal, however EF was normal Subjective: Feels improvement in her breathing, still somewhat short of breath and wheezy Pertinent positives and negatives as discussed above, a complete review of systems was performed and all other systems are negative. Vitals Signs Reviewed. General: [nontoxic], [no distress], [appears at stated age], obese Derm: [warm], [dry] Head: [atraumatic], [normocephalic], [symmetric] Eyes: [EOMI], [no lid lag], [anicteric sclera] Mouth: [no lip lesion], [mucus membranes moist] Cardiovascular: [S1S2 reg], [no murmur] Lungs: Bilateral wheezing appreciated Abdominal: [soft], [ nontender to palpation], [no guarding], [no appreciable organomegaly] Ext: [no gross muscle atrophy], [bilateral lymphedema Neuro: [ CN II-XI grossly intact], [no focal neuro deficits] Psych: [Alert], [oriented], [appropriate affect] Data Reviewed Today: Pertinent Labs: Sodium 136, potassium 5.2, creatinine 1.25, glucose 359 Assessment and plan Acute on chronic hypoxic hypercapnic respiratory failure secondary to COPD exacerbation, on home oxygen 3 L Leukocytosis Chest x-ray shows no acute pulmonary process VBG shows pH 7.21, pCO2 63, bicarb 25 Continue supplemental oxygen currently on 4 L via nasal cannula Continue Symbicort 160-4.5 mcg inhalation twice daily, DuoNeb 4 times daily and every 2 hours as needed IV solumderol 40mg Q12HR Doxycycline 100 mg BID for 7 days for COPD exacerbation Continue guaifenesin 600 mg p.o. every 12 hours Obtain respiratory panel, sputum culture Monitor CBC Consult pulmonology Lymphedema right lower extremity DVT -Started on Eliquis 10 mg twice daily for 7 days followed by 5 mg twice daily on 02/08 NSTEMI type II Troponin I 0.036, 0.038 Trend troponin Monitor for now TTE ordered, EF is normal Hyperkalemia Potassium 5.2, Lokelma 10 mg once, Patient does report being on Spironolactone. Currently holding Monitor BMP QUIANA, prerenal -Hold losartan -Increase amlodipine up to 10 mg in the meantime -Start NS at 75 cc/h Monitor BMP Hypertension Hyperlipidemia Type II diabetes mellitus Anxiety/depression Continue amlodipine 10 mg p.o. daily, Zetia 10 mg p.o. daily, insulin sliding scale, rosuvastatin 40 mg p.o. daily, sertraline 50 mg p.o. at bedtime, metopr olol 50 mg p.o. daily, lantus 25units and insulin sliding scale, increased Humalog up to 8 units with meals to achieve better glucose control, holding losartan 100 mg p.o. daily due to QUIANA 5 units with mealtime to achieve better glucose control, , losartan 100 mg p.o. daily Hold spironolactone CODE STATUS: FULL CODE Discussed with: Patient Anticipated discharge place: Home Objective - Vital Signs Vital signs: Vital Signs Temp 97.8 F 02/09/25 07:25 Pulse 88 02/09/25 08:12 Resp 18 02/09/25 07:25 BP 141/70 02/09/25 07:25 Pulse Ox 97 02/09/25 07:58 FiO2 Intake & Output 02/08/25 02/09/25 02/09/25 18:59 06:59 18:59 Intake Total 540 Output Total 1000 100 Balance -460 -100 Intake: Oral 540 Output: Urine 1000 100 Other: Voiding Method Diaper Diaper External Catheter External Catheter # Voids 1 # Bowel Movements 0 0 - Labs CBC & Chem 7: 02/08/25 08:06 02/09/25 08:11 Labs: Abnormal Lab Results - Last 24 Hours (Table) 02/08/25 02/08/25 02/08/25 Range/Units 08:09 11:02 11:53 Sodium (137-145) mmol/L Potassium (3.5-5.1) mmol/L BUN (7-17) mg/dL Creatinine (0.52-1.04) mg/dL Glucose (74-99) mg/dL POC Glucose (mg/dL) 292 H 278 H (70-110) mg/dL Hemoglobin A1c 7.7 H (<=6.0) % 02/08/25 02/08/25 02/08/25 Range/Units 13:20 17:08 19:31 Sodium (137-145) mmol/L Potassium 5.5 H (3.5-5.1) mmol/L BUN (7-17) mg/dL Creatinine (0.52-1.04) mg/dL Glucose (74-99) mg/dL POC Glucose (mg/dL) 395 H 412 H (70-110) mg/dL Hemoglobin A1c (<=6.0) % 02/09/25 02/09/25 Range/Units 06:06 08:11 Sodium 136 L (137-145) mmol/L Potassium 5.2 H (3.5-5.1) mmol/L BUN 53 H (7-17) mg/dL Creatinine 1.25 H (0.52-1.04) mg/dL Glucose 359 H (74-99) mg/dL POC Glucose (mg/dL) 372 H (70-110) mg/dL Hemoglobin A1c (<=6.0) %
--- NOTE | 2025-02-09 11:09 | P.PN ---
Subjective Progress Note Date: 02/09/25 This is a pleasant 74-year-old female patient with a history of obesity with previous lap band insertion and subsequent removal, diabetes mellitus, hypertension, hyperlipidemia, lower extremity lymphadenopathy with chronic venous stasis changes, former smoker, chronic obstructive pulmonary disease on home oxygen, anxiety. She presented here to the emergency room with a 1 day history of shortness of breath and orthopnea. Chest x-ray reveals no acute pulmonary process. White count 13.3. Hemoglobin 14.8. Platelets 250. Sodium 139. Potassium 5.5. Bicarb 28. BUN 45. Creatinine 1.18. Glucose 200. Troponin 0.036, 0.038. Rate and 98. Viral screen is negative. She is seen today in consultation on the regular medical floor. She is currently resting in bed. Awake and alert in no acute distress. Feeling a bit better today compared to yesterday. Maintaining O2 saturations in the 90s on 3 L/min per nasal cannula. She has been afebrile. Hemodynamically stable. The patient is seen today February 09, 2025 in follow-up on the regular medical floor. She is awake and alert in no acute distress. Resting quite comfortably in bed. Maintaining O2 saturations in the mid to upper 90s on 4 L/min per nasal cannula. She is afebrile. Hemodynamically stable. Sodium 136. Potassium 5.2. Bicarb 28. BUN 53. Creatinine 1.25. Glucose 359. She remains on DuoNeb inhalations, Symbicort, Solu-Medrol. Empiric antibiotics in the form of doxycycline. Anticoagulated with Eliquis. Doppler of the lower extremity revealed a noncompressible right lower extremity DVT. Objective - Vital Signs Vital signs: Vital Signs Temp 97.8 F 02/09/25 07:25 Pulse 88 02/09/25 08:12 Resp 18 02/09/25 07:25 BP 141/70 02/09/25 07:25 Pulse Ox 97 02/09/25 07:58 FiO2 Intake & Output 02/08/25 02/09/25 02/09/25 18:59 06:59 18:59 Intake Total 540 Output Total 1000 100 Balance -460 -100 Intake: Oral 540 Output: Urine 1000 100 Other: Voiding Method Diaper Diaper External Catheter External Catheter # Voids 1 # Bowel Movements 0 0 - Exam GENERAL EXAM: Alert, morbidly obese 74-year-old female, on 3 L nasal cannula, co mfortable in no apparent distress. HEAD: Normocephalic. EYES: Normal reaction of pupils, equal size. NOSE: Clear with pink turbinates. THROAT: No erythema or exudates. NECK: No masses, no JVD. CHEST: No chest wall deformity. LUNGS: Equal air entry with no crackles, wheeze, rhonchi or dullness. CVS: S1 and S2 normal with no audible murmur, regular rhythm. ABDOMEN: No hepatosplenomegaly, normal bowel sounds, no guarding or rigidity. SPINE: No scoliosis or deformity SKIN: No rashes CENTRAL NERVOUS SYSTEM: No focal deficits, tone is normal in all 4 extremities. EXTREMITIES: There is 1+ peripheral edema. No clubbing, no cyanosis. Peripheral pulses are intact. - Labs CBC & Chem 7: 02/08/25 08:06 02/09/25 08:11 Labs: Abnormal Lab Results - Last 24 Hours (Table) 02/08/25 02/08/25 02/08/25 Range/Units 08:09 11:02 11:53 Sodium (137-145) mmol/L Potassium (3.5-5.1) mmol/L BUN (7-17) mg/dL Creatinine (0.52-1.04) mg/dL Glucose (74-99) mg/dL POC Glucose (mg/dL) 292 H 278 H (70-110) mg/dL Hemoglobin A1c 7.7 H (<=6.0) % 02/08/25 02/08/25 02/08/25 Range/Units 13:20 17:08 19:31 Sodium (137-145) mmol/L Potassium 5.5 H (3.5-5.1) mmol/L BUN (7-17) mg/dL Creatinine (0.52-1.04) mg/dL Glucose (74-99) mg/dL POC Glucose (mg/dL) 395 H 412 H (70-110) mg/dL Hemoglobin A1c (<=6.0) % 02/09/25 02/09/25 Range/Units 06:06 08:11 Sodium 136 L (137-145) mmol/L Potassium 5.2 H (3.5-5.1) mmol/L BUN 53 H (7-17) mg/dL Creatinine 1.25 H (0.52-1.04) mg/dL Glucose 359 H (74-99) mg/dL POC Glucose (mg/dL) 372 H (70-110) mg/dL Hemoglobin A1c (<=6.0) % Assessment and Plan Assessment: Acute on chronic hypoxemic respiratory failure secondary to an exacerbation of chronic obstructive pulmonary disease, restrictive lung disease due to obesity. Chest x-ray reveals no acute process. Viral screen negative Chronic hypoxic respiratory failure maintained on oxygen at 3 L/min per nasal cannula Morbid obesity with a BMI of 57.6 kg/m. History of previous lap band procedure and subsequent removal Former smoker Acute kidney injury Hyperkalemia secondary to above Troponin leak Lymphedema with chronic changes of venous stasis of the lower extremities Nonobstructive DVT of the right lower extremity, initiated on Eliquis Diabetes mellitus, type 2 Hyperlipidemia Hypertension History of anxiety Plan: The patient was seen and evaluated Labs and medications reviewed Received Lokelma Continue Eliquis Continue DuoNeb inhalations, Symbicort Continue Solu-Medrol Empiric antibiotics in the form of doxycycline Has home oxygen We will continue to follow I have personally seen and examined the patient, performed the documentation and the assessment and plan as written. Number of minutes spent on the visit: 10 Dictation was produced using [employer] dictation software. Please excuse any grammatical, word or spelling errors.
[2025-02-09] MEDS: SODIUM ZIRCONIUM CYCLOSILICATE 10 GM PACKET PO ONE (11:37)
[2025-02-09] MEDS: SODIUM CHLORIDE 0.9% 1,000 ML IV SCH (11:46)
[2025-02-09 12:23] LABS: Glucose,Whole Blood 348 mg/dL (70-110)
[2025-02-09] MEDS: INSULIN LISPRO (HumaLOG) 100 UNIT/ML 10 mL VL SQ SCH (13:07)
[2025-02-09 17:30] LABS: Glucose,Whole Blood 354 mg/dL (70-110)
[2025-02-09 19:52] LABS: Glucose,Whole Blood 343 mg/dL (70-110)
[2025-02-09] MEDS: MECLIZINE 25 MG TAB PO STA (22:07)
[2025-02-10 05:30] LABS: Glucose,Whole Blood 277 mg/dL (70-110)
[2025-02-10] MEDS: amLODIPine 10 MG TAB PO SCH (07:51)
[2025-02-10 08:35] LABS: Basophils # (A) 0.01 X 10*3/uL (0.00-0.10); Basophils % (A) 0.1 %; Eosinophils # (A) 0 X 10*3/uL (0.04-0.35); Eosinophils % (A) 0 %; HCT 39.6 % (37.2-46.3); HGB 12.5 g/dL (12.0-15.0); Lymphocytes # (A) 0.62 X 10*3/uL (0.90-5.00); Lymphocytes % (A) 3.4 %; MCH 30.6 pg (27.0-32.0); MCHC 31.6 g/dL (32.0-37.0); MCV 97.1 FL (80.0-97.0); Mean Platelet Volume 11.2 FL (9.5-12.2); Monocytes # (A) 0.25 X 10*3/uL (0.20-1.00); Monocytes % (A) 1.4 %; NRBC Per 100 WBC 0 X 10*3/uL (0.00-0.01); Neutrophils # (A) 17.29 X 10*3/uL (1.80-7.70); Neutrophils % (A) 94.5 %; Platelet Count 241 X 10*3/uL (140-440); RBC 4.08 X 10*6/uL (4.10-5.20); RDW 12.3 % (11.5-14.5); WBC 18.28 X 10*3/uL (4.50-10.00)
[2025-02-10] MEDS: predniSONE 20 MG TAB PO SCH (08:53)
[2025-02-10 11:03] LABS: BUN/Creat Ratio 43.36 Ratio (12.00-20.00); Blood Urea Nitrogen 47.7 mg/dL (9.0-27.0); Calcium 9.6 mg/dL (8.7-10.3); Carbon Dioxide 24.2 mmol/L (21.6-31.8); Chloride 105 mmol/L (96-109); Glucose 301 mg/dL (70-110); Potassium 4.9 mmol/L (3.5-5.5); Sodium 139 mmol/L (135-145)
[2025-02-10 12:38] LABS: Glucose,Whole Blood 347 mg/dL (70-110)
--- NOTE | 2025-02-10 12:38 | P.PN ---
Subjective Progress Note Date: 02/10/25 This is a pleasant 74-year-old female patient with a history of obesity with previous lap band insertion and subsequent removal, diabetes mellitus, hypertension, hyperlipidemia, lower extremity lymphadenopathy with chronic venous stasis changes, former smoker, chronic obstructive pulmonary disease on home oxygen, anxiety. She presented here to the emergency room with a 1 day history of shortness of breath and orthopnea. Chest x-ray reveals no acute pulmonary process. White count 13.3. Hemoglobin 14.8. Platelets 250. Sodium 139. Potassium 5.5. Bicarb 28. BUN 45. Creatinine 1.18. Glucose 200. Troponin 0.036, 0.038. Rate and 98. Viral screen is negative. She is seen today in consultation on the regular medical floor. She is currently resting in bed. Awake and alert in no acute distress. Feeling a bit better today compared to yesterday. Maintaining O2 saturations in the 90s on 3 L/min per nasal cannula. She has been afebrile. Hemodynamically stable. The patient is seen today February 09, 2025 in follow-up on the regular medical floor. She is awake and alert in no acute distress. Resting quite comfortably in bed. Maintaining O2 saturations in the mid to upper 90s on 4 L/min per nasal cannula. She is afebrile. Hemodynamically stable. Sodium 136. Potassium 5.2. Bicarb 28. BUN 53. Creatinine 1.25. Glucose 359. She remains on DuoNeb inhalations, Symbicort, Solu-Medrol. Empiric antibiotics in the form of doxycycline. Anticoagulated with Eliquis. Doppler of the lower extremity revealed a noncompressible right lower extremity DVT. The patient is seen today February 10, 2025 in follow-up on the regular medical floor. Currently resting comfortably in bed. She is awake and alert in no acute distress. Maintaining good O2 saturations in the 90s on 3 L/min per nasal cannula. She has been afebrile. Hemodynamically stable. She is continued on DuoNeb inhalations, Symbicort, Solu-Medrol. Anticoagulated with Eliquis. White count 18.2. Hemoglobin 12.5. Platelets 241. Sodium 139. Potassium 4.9. Bicarb 24. BUN 48. Creatinine 1.1. Glucose 301. Objective - Vital Signs Vital signs: Vital Signs Temp 97.5 F L 02/10/25 07:00 Pulse 74 02/10/25 12:26 Resp 19 02/10/25 07:00 BP 135/71 02/10/25 07:00 Pulse Ox 94 L 02/10/25 08:59 FiO2 Intake & Output 02/09/25 02/10/25 02/10/25 18:59 06:59 18:59 Intake Total 222 118 Output Total 500 1400 Balance -500 -1178 118 Intake: Oral 222 118 Output: Urine 500 1400 Other: Voiding Method Diaper Diaper Diaper External Catheter External Catheter External Catheter # Voids 1 # Bowel Movements 0 - Exam GENERAL EXAM: Alert, morbidly obese 74-year-old female, resting in bed, on 3 L nasal cannula, in no apparent distress. HEAD: Normocephalic. EYES: Normal reaction of pupils, equal size. NOSE: Clear with pink turbinates. THROAT: No erythema or exudates. NECK: No masses, no JVD. CHEST: No chest wall deformity. LUNGS: Equal air entry with no crackles, wheeze, rhonchi or dullness. CVS: S1 and S2 normal with no audible murmur, regular rhythm. ABDOMEN: No hepatosplenomegaly, normal bowel sounds, no guarding or rigidity. SPINE: No scoliosis or deformity SKIN: No rashes CENTRAL NERVOUS SYSTEM: No focal deficits, tone is normal in all 4 extremities. EXTREMITIES: There is 1+ peripheral edema. No clubbing, no cyanosis. Periphe ral pulses are intact. - Labs CBC & Chem 7: 02/10/25 05:36 02/10/25 05:36 Labs: Abnormal Lab Results - Last 24 Hours (Table) 02/09/25 02/09/25 02/10/25 Range/Units 17:28 19:49 05:28 WBC (4.50-10.00) X 10*3/uL RBC (4.10-5.20) X 10*6/uL MCV (80.0-97.0) FL MCHC (32.0-37.0) g/dL Immature Gran # (0.00-0.04) X 10*3/uL Neutrophils # (1.80-7.70) X 10*3/uL Lymphocytes # (0.90-5.00) X 10*3/uL Eosinophils # (0.04-0.35) X 10*3/uL BUN (9.0-27.0) mg/dL Est GFR (CKD-EPI) (>=60) BUN/Creatinine Ratio (12.00-20.00) Ratio Glucose (70-110) mg/dL POC Glucose (mg/dL) 354 H 343 H 277 H (70-110) mg/dL 02/10/25 02/10/25 Range/Units 05:36 05:36 WBC 18.28 H (4.50-10.00) X 10*3/uL RBC 4.08 L (4.10-5.20) X 10*6/uL MCV 97.1 H (80.0-97.0) FL MCHC 31.6 L (32.0-37.0) g/dL Immature Gran # 0.11 H (0.00-0.04) X 10*3/uL Neutrophils # 17.29 H (1.80-7.70) X 10*3/uL Lymphocytes # 0.62 L (0.90-5.00) X 10*3/uL Eosinophils # 0 L (0.04-0.35) X 10*3/uL BUN 47.7 H (9.0-27.0) mg/dL Est GFR (CKD-EPI) 53 L (>=60) BUN/Creatinine Ratio 43.36 H (12.00-20.00) Ratio Glucose 301 H (70-110) mg/dL POC Glucose (mg/dL) (70-110) mg/dL Assessment and Plan Assessment: Acute on chronic hypoxemic respiratory failure secondary to an exacerbation of chronic obstructive pulmonary disease, restrictive lung disease due to obesity. Chest x-ray reveals no acute process. Viral screen negative Chronic hypoxic respiratory failure maintained on oxygen at 3 L/min per nasal cannula Morbid obesity with a BMI of 57.6 kg/m. History of previous lap band procedure and subsequent removal Former smoker Acute kidney injury, improving Hyperkalemia secondary to above, back to normal limits Troponin leak Lymphedema with chronic changes of venous stasis of the lower extremities Nonobstructive DVT of the right lower extremity, initiated on Eliquis Diabetes mellitus, type 2 Hyperlipidemia Hypertension History of anxiety Plan: The patient was seen and evaluated Labs and medications reviewed Procalcitonin was negative Doxycycline discontinued Stable for discharge Continue her home oxygen Continue her home DuoNeb inhalations Continue on Symbicort Complete a prednisone taper Follow-up in our office in 1 week This patient was seen independently by the pulmonary nurse practitioner addressing pulmonary issues I have personally seen and examined the patient, performed the documentation and the assessment and plan as written. Number of minutes spent on the visit: 24 Dictation was produced using [employer] dictation software. Please excuse any grammatical, word or spelling errors.
--- NOTE | 2025-02-10 16:11 | P.DS ---
Providers Date of admission: 02/07/25 21:02 Expected date of discharge: 02/10/25 Attending physician: Home Lee MD Consults: 02/07/25 21:02 Consult Physician Routine Consulting Provider: Heladio Dawn Consult Reason/Comments: COPD Do you want consulting provider notified?: Yes, Notify in am Primary care physician: Physician Nonstaff Hospital Course: Patient is a 74 year old female with past medical history of COPD (3 L home oxygen), hypertension, hyperlipidemia, diabetes mellitus type 2, remote history of tobacco use presented to the ED with shortness of breath. Patient reports her symptoms started 8:30 AM today morning when she woke up. She experienced difficulty in breathing and it was difficult for her to lay flat. At first she tried to monitor her symptoms at home. Later her son came to check on her today afternoon. EMS administered 1 sublingual nitroglycerin, DuoNeb, 125 mg of Solu- Medrol, 0.3 mg IM epinephrine, 1 mg IV Versed. EMS reported attempting to place the patient on CPAP however the patient was unable to tolerate it, so they placed the patient on BVM. Patient reports having a cough with occasional clear/yellowish green sputum and lower extremity edema. Associated with that the patient complains of nausea but denies vomiting. Denies fever, chills, chest pain, palpitations, abdominal pain, vomiting, hematuria, dysuria, hematochezia, melena, headache, slurred speech, numbness, tingling, dizziness, lightheadedness, blurred vision, double vision. ED documentation reviewed. In the ED patient was treated with meclizine 25 mg, methadone 5 mg, Rocephin 1 g, Zithromax 500 mg, 0.9 normal saline. Vitals on admission T 97.5 F, ID 89 bpm, RR 28, BP 114/82, oxygen saturation 98% on 2 L oxygen via nasal cannula. Currently on 4 L oxygen via nasal cannula and saturating at 99% EKG independently interpreted as sinus rhythm, poor R wave progression, rate 87 bpm, QTc 402 ms Chest x-ray shows no acute pulmonary process Labs on admission show WBC 14.95, hemoglobin 14.3, platelet count 269, INR 1.0, sodium 139, potassium 5.2, bicarb 25, BUN 44, creatinine 1.09, calcium 10.5, magnesium 1.9, ALT 35, NT proBNP 498 Troponin I 0.036, 0.038 VBG shows pH 7.21, pCO2 63, bicarb 25 Admitted for further management of acute on chronic hypoxic respiratory failure secondary to COPD exacerbation, pulmonology consulted For evaluation of lymphedema, bilateral lower extremity duplex was ordered and was positive for DVT on the right side, started on Eliquis. TTE ordered showing EF 55-60%. Pulmonology consulted, patient was continued on Solu-Medrol, DuoNebs. 02/10 Patient was seen and examined. Feeling better. Cleared by Pulmonary for discharge. CBC, BMP significant for WBC 18.28, RBC 4.08, MCV 97.1, BUN 47.7, glu 301. Discharge Plan: Prescription for Symbicort [place], Eliquis, Amlodipine and Prednisone taper sent to pharmacy. Discontinue Aldactone due to QUIANA and hyperkalemia. General: [nontoxic], [no distress], [appears at stated age], obese Derm: [warm], [dry] Head: [atraumatic], [normocephalic], [symmetric] Eyes: [EOMI], [no lid lag], [anicteric sclera] Mouth: [no lip lesion], [mucus membranes moist] Cardiovascular: [S1S2 reg], [no murmur] Lungs: Decreased BS BL with scattered wheezing Abdominal: [soft], [ nontender to palpation], [no guarding], [no appreciable organomegaly] Ext: [no gross muscle atrophy], [bilateral lymphedema Neuro: [ CN II-XI grossly intact], [no focal neuro deficits] Psych: [Alert], [oriented], [appropriate affect] Discharge Diagnosis: Acute on chronic hypoxic hypercapnic respiratory failure secondary to COPD exacerbation, on home oxygen 3 L Leukocytosis Lymphedema RLE DVT NSTEMI type II Hyperkalemia QUIANA, prerenal Hypertension Hyperlipidemia Type II diabetes mellitus Anxiety/depression This complex discharge took 35 minutes to complete. Patient Condition at Discharge: Stable Plan - Discharge Summary Discharge Rx Participant: No New Discharge Prescriptions: New Budesonide-Formot 160-4.5 Mcg [Symbicort 160-4.5 Mcg Inhaler] 2 puff INHALATION RT-BID #1 each Apixaban [Eliquis Starter Pack (for VTE)] 5 - 10 mg PO DIRECTED 30 Days #1 each amLODIPine [Norvasc] 10 mg PO DAILY #30 tab predniSONE See Taper PO DIRECTED #30 tab Continue Ezetimibe [Zetia] 10 mg PO DAILY Rosuvastatin Calcium [Crestor] 40 mg PO DAILY Metoprolol Succinate (ER) [Toprol XL] 50 mg PO DAILY Losartan Potassium [Cozaar] 100 mg PO DAILY Sertraline HCl [Zoloft] 50 mg PO HS Insulin Regular [humuLIN R] 20 units SQ DAILY Ipratropium-Albuterol Nebulize [Duoneb 0.5 mg-3 mg/3 ml Soln] 3 ml INHALATION RT-QID PRN PRN Reason: Shortness Of Breath Insulin Regular [humuLIN R] 1 - 10 units SQ HS Albuterol Inhaler [Ventolin Hfa Inhaler] 2 puff INHALATION RT-QID PRN PRN Reason: Shortness Of Breath Chlorthalidone 50 mg PO DAILY Discontinued Spironolactone [Aldactone] 25 mg PO DAILY amLODIPine [Norvasc] 5 mg PO DAILY Discharge Medication List Ezetimibe [Zetia] 10 mg PO DAILY 06/20/17 [History] Losartan Potassium [Cozaar] 100 mg PO DAILY 06/20/17 [History] Metoprolol Succinate (ER) [Toprol XL] 50 mg PO DAILY 06/20/17 [History] Rosuvastatin Calcium [Crestor] 40 mg PO DAILY 06/20/17 [History] Sertraline HCl [Zoloft] 50 mg PO HS 06/20/17 [History] Insulin Regular [humuLIN R] 20 units SQ DAILY 10/14/21 [History] Albuterol Inhaler [Ventolin Hfa Inhaler] 2 puff INHALATION RT-QID PRN 02/08/25 [History] Chlorthalidone 50 mg PO DAILY 02/08/25 [History] Insulin Regular [humuLIN R] 1 - 10 units SQ HS 02/08/25 [History] Ipratropium-Albuterol Nebulize [Duoneb 0.5 mg-3 mg/3 ml Soln] 3 ml INHALATION RT-QID PRN 02/08/25 [History] Apixaban [Eliquis Starter Pack (for VTE)] 5 - 10 mg PO DIRECTED 30 Days #1 each 02/10/25 [Rx] Budesonide-Formot 160-4.5 Mcg [Symbicort 160-4.5 Mcg Inhaler] 2 puff INHALATION RT-BID #1 each 02/10/25 [Rx] amLODIPine [Norvasc] 10 mg PO DAILY #30 tab 02/10/25 [Rx] predniSONE See Taper PO DIRECTED #30 tab 02/10/25 [Rx] Follow up Appointment(s)/Referral(s): Stanley Keating DO [Doctor of Osteopathic Medicine] - 03/05/25 1:30 pm None,Stated [REFERRING] - 1-2 days Residential Home,[facility] [NON-STAFF] - As Needed Activity/Diet/Wound Care/Special Instructions: PCP: [facility] - Address: [address] [place] [address] [address], [place] [address] - Discharge Disposition: HOME SELF-CARE
[2025-02-10 17:25] LABS: Glucose,Whole Blood 356 mg/dL (70-110)
[2025-02-10 20:28] LABS: Glucose,Whole Blood 329 mg/dL (70-110)
[2025-02-11 06:08] LABS: Glucose,Whole Blood 274 mg/dL (70-110)
--- NOTE | 2025-02-11 10:35 | P.PN ---
Subjective Progress Note Date: 02/11/25 This is a pleasant 74-year-old female patient with a history of obesity with previous lap band insertion and subsequent removal, diabetes mellitus, hypertension, hyperlipidemia, lower extremity lymphadenopathy with chronic venous stasis changes, former smoker, chronic obstructive pulmonary disease on home oxygen, anxiety. She presented here to the emergency room with a 1 day history of shortness of breath and orthopnea. Chest x-ray reveals no acute pulmonary process. White count 13.3. Hemoglobin 14.8. Platelets 250. Sodium 139. Potassium 5.5. Bicarb 28. BUN 45. Creatinine 1.18. Glucose 200. Troponin 0.036, 0.038. Rate and 98. Viral screen is negative. She is seen today in consultation on the regular medical floor. She is currently resting in bed. Awake and alert in no acute distress. Feeling a bit better today compared to yesterday. Maintaining O2 saturations in the 90s on 3 L/min per nasal cannula. She has been afebrile. Hemodynamically stable. The patient is seen today February 09, 2025 in follow-up on the regular medical floor. She is awake and alert in no acute distress. Resting quite comfortably in bed. Maintaining O2 saturations in the mid to upper 90s on 4 L/min per nasal cannula. She is afebrile. Hemodynamically stable. Sodium 136. Potassium 5.2. Bicarb 28. BUN 53. Creatinine 1.25. Glucose 359. She remains on DuoNeb inhalations, Symbicort, Solu-Medrol. Empiric antibiotics in the form of doxycycline. Anticoagulated with Eliquis. Doppler of the lower extremity revealed a noncompressible right lower extremity DVT. The patient is seen today February 10, 2025 in follow-up on the regular medical floor. Currently resting comfortably in bed. She is awake and alert in no acute distress. Maintaining good O2 saturations in the 90s on 3 L/min per nasal cannula. She has been afebrile. Hemodynamically stable. She is continued on DuoNeb inhalations, Symbicort, Solu-Medrol. Anticoagulated with Eliquis. White count 18.2. Hemoglobin 12.5. Platelets 241. Sodium 139. Potassium 4.9. Bicarb 24. BUN 48. Creatinine 1.1. Glucose 301. The patient is seen today February 11, 2025 and follow-up on the regular medical floor. She is awake and alert in no acute distress. Maintaining O2 saturations in the high 90s on 3 L/min per nasal cannula. She remains on DuoNeb inhalations, Symbicort, prednisone taper. She denies any worsening shortness of breath, cough or congestion. Feeling back to her baseline. Glucose 274. Objective - Vital Signs Vital signs: Vital Signs Temp 97.4 F L 02/11/25 07:00 Pulse 74 02/11/25 09:03 Resp 18 02/11/25 07:00 BP 122/75 02/11/25 07:00 Pulse Ox 98 02/11/25 08:54 FiO2 Intake & Output 02/10/25 02/11/25 02/11/25 18:59 06:59 18:59 Intake Total 236 Output Total 900 Balance -664 Intake: Oral 236 Output: Urine 900 Other: Voiding Method Diaper Bedside Commode Bedside Commode External Catheter Diaper Diaper # Voids 3 3 - Exam GENERAL EXAM: Alert, morbidly obese 74-year-old female, on 3 L nasal cannula, in no apparent distress. HEAD: Normocephalic. EYES: Normal reaction of pupils, equal size. NOSE: Clear with pink turbinates. THROAT: No erythema or exudates. NECK: No masses, no JVD. CHEST: No chest wall deformity. LUNGS: Equal air entry with no crackles, wheeze, rhonchi or dullness. CVS: S1 and S2 normal with no audible murmur, regular rhythm. ABDOMEN: No hepatosplenomegaly, normal bowel sounds, no guarding or rigidity. SPINE: No scoliosis or deformity SKIN: No rashes CENTRAL NERVOUS SYSTEM: No focal deficits, tone is normal in all 4 extremities. EXTREMITIES: There is 1+ peripheral edema. No clubbing, no cyanosis. Peripheral pulses are intact. - Labs CBC & Chem 7: 02/10/25 05:36 02/10/25 05:36 Labs: Abnormal Lab Results - Last 24 Hours (Table) 02/10/25 02/10/25 02/10/25 Range/Units 05:36 12:36 17:24 BUN 47.7 H (9.0-27.0) mg/dL Est GFR (CKD-EPI) 53 L (>=60) BUN/Creatinine Ratio 43.36 H (12.00-20.00) Ratio Glucose 301 H (70-110) mg/dL POC Glucose (mg/dL) 347 H 356 H (70-110) mg/dL 02/10/25 02/11/25 Range/Units 20:20 06:06 BUN (9.0-27.0) mg/dL Est GFR (CKD-EPI) (>=60) BUN/Creatinine Ratio (12.00-20.00) Ratio Glucose (70-110) mg/dL POC Glucose (mg/dL) 329 H 274 H (70-110) mg/dL Assessment and Plan Assessment: Acute on chronic hypoxemic respiratory failure secondary to an exacerbation of chronic obstructive pulmonary disease, restrictive lung disease due to obesity. Chest x-ray reveals no acute process. Viral screen negative Chronic hypoxic respiratory failure maintained on oxygen at 3 L/min per nasal cannula Morbid obesity with a BMI of 57.6 kg/m. History of previous lap band procedure and subsequent removal Former smoker Acute kidney injury, improving Hyperkalemia secondary to above, back to normal limits Troponin leak Lymphedema with chronic changes of venous stasis of the lower extremities Nonobstructive DVT of the right lower extremity, initiated on Eliquis Diabetes mellitus, type 2 Hyperlipidemia Hypertension History of anxiety Plan: The patient was seen and evaluated Labs and medications reviewed Stable for discharge Continue her home oxygen Continue her home DuoNeb inhalations Continue on Symbicort Complete a prednisone taper Plan now is for [facility] for subacute rehabilitation This patient was seen independently by the pulmonary nurse practitioner addressing pulmonary issues I have personally seen and examined the patient, performed the documentation and the assessment and plan as written. Number of minutes spent on the visit: 23 Dictation was produced using [employer] dictation software. Please excuse any grammatical, word or spelling errors.
[2025-02-11 12:28] LABS: Glucose,Whole Blood 277 mg/dL (70-110)
--- NOTE | 2025-02-11 13:07 | P.DS ---
Providers Date of admission: 02/07/25 21:02 Expected date of discharge: 02/11/25 Attending physician: Home Lee MD Consults: 02/07/25 21:02 Consult Physician Routine Consulting Provider: Heladio Dawn Consult Reason/Comments: COPD Do you want consulting provider notified?: Yes, Notify in am Primary care physician: Physician Nonstaff Hospital Course: Patient is a 74 year old female with past medical history of COPD (3 L home oxygen), hypertension, hyperlipidemia, diabetes mellitus type 2, remote history of tobacco use presented to the ED with shortness of breath. Patient reports her symptoms started 8:30 AM today morning when she woke up. She experienced difficulty in breathing and it was difficult for her to lay flat. At first she tried to monitor her symptoms at home. Later her son came to check on her today afternoon. EMS administered 1 sublingual nitroglycerin, DuoNeb, 125 mg of Solu- Medrol, 0.3 mg IM epinephrine, 1 mg IV Versed. EMS reported attempting to place the patient on CPAP however the patient was unable to tolerate it, so they placed the patient on BVM. Patient reports having a cough with occasional clear/yellowish green sputum and lower extremity edema. Associated with that the patient complains of nausea but denies vomiting. Denies fever, chills, chest pain, palpitations, abdominal pain, vomiting, hematuria, dysuria, hematochezia, melena, headache, slurred speech, numbness, tingling, dizziness, lightheadedness, blurred vision, double vision. ED documentation reviewed. In the ED patient was treated with meclizine 25 mg, methadone 5 mg, Rocephin 1 g, Zithromax 500 mg, 0.9 normal saline. Vitals on admission T 97.5 F, W[place] 89 bpm, RR 28, BP 114/82, oxygen saturation 98% on 2 L oxygen via nasal cannula. Currently on 4 L oxygen via nasal cannula and saturating at 99% EKG independently interpreted as sinus rhythm, poor R wave progression, rate 87 bpm, QTc 402 ms Chest x-ray shows no acute pulmonary process Labs on admission show WBC 14.95, hemoglobin 14.3, platelet count 269, INR 1.0, sodium 139, potassium 5.2, bicarb 25, BUN 44, creatinine 1.09, calcium 10.5, magnesium 1.9, ALT 35, NT proBNP 498 Troponin I 0.036, 0.038 VBG shows pH 7.21, pCO2 63, bicarb 25 Admitted for further management of acute on chronic hypoxic respiratory failure secondary to COPD exacerbation, pulmonology consulted For evaluation of lymphedema, bilateral lower extremity duplex was ordered and was positive for DVT on the right side, started on Eliquis. TTE ordered showing EF 55-60%. Pulmonology consulted, patient was continued on Solu-Medrol, DuoNebs. 02/10 Patient was seen and examined. Feeling better. Cleared by Pulmonary for discharge. CBC, BMP significant for WBC 18.28, RBC 4.08, MCV 97.1, BUN 47.7, glu 301. 02/11 Patient was seen and examined. Feeling well. Discharge held yesterday due to insurance auth which was obtained today. Plans to DC to [facility] today. Discharge Plan: Prescription for Symbicort IN, Eliquis, Amlodipine and Prednisone taper sent to pharmacy. Discontinue Aldactone due to QUIANA and hyperkalemia. General: [nontoxic], [no distress], [appears at stated age], obese Derm: [warm], [dry] Head: [atraumatic], [normocephalic], [symmetric] Eyes: [EOMI], [no lid lag], [anicteric sclera] Mouth: [no lip lesion], [mucus membranes moist] Cardiovascular: [S1S2 reg], [no murmur] Lungs: Decreased BS BL with scattered wheezing Abdominal: [soft], [ nontender to palpation], [no guarding], [no appreciable organomegaly] Ext: [no gross muscle atrophy], [bilateral lymphedema Neuro: [ CN II-XI grossly intact], [no focal neuro deficits] Psych: [Alert], [oriented], [appropriate affect] Discharge Diagnosis: Acute on chronic hypoxic hypercapnic respiratory failure secondary to COPD exacerbation, on home oxygen 3 L Leukocytosis Lymphedema RLE DVT NSTEMI type II Hyperkalemia QUIANA, prerenal Hypertension Hyperlipidemia Type II diabetes mellitus Anxiety/depression This complex discharge took 35 minutes to complete. Patient Condition at Discharge: Stable Plan - Discharge Summary Discharge Rx Participant: No New Discharge Prescriptions: New Budesonide-Formot 160-4.5 Mcg [Symbicort 160-4.5 Mcg Inhaler] 2 puff INHALATION RT-BID #1 each Apixaban [Eliquis Starter Pack (for VTE)] 5 - 10 mg PO DIRECTED 30 Days #1 each amLODIPine [Norvasc] 10 mg PO DAILY #30 tab predniSONE See Taper PO DIRECTED #30 tab Continue Ezetimibe [Zetia] 10 mg PO DAILY Rosuvastatin Calcium [Crestor] 40 mg PO DAILY Metoprolol Succinate (ER) [Toprol XL] 50 mg PO DAILY Losartan Potassium [Cozaar] 100 mg PO DAILY Sertraline HCl [Zoloft] 50 mg PO HS Insulin Regular [humuLIN R] 20 units SQ DAILY Ipratropium-Albuterol Nebulize [Duoneb 0.5 mg-3 mg/3 ml Soln] 3 ml INHALATION RT-QID PRN PRN Reason: Shortness Of Breath Insulin Regular [humuLIN R] 1 - 10 units SQ HS Albuterol Inhaler [Ventolin Hfa Inhaler] 2 puff INHALATION RT-QID PRN PRN Reason: Shortness Of Breath Chlorthalidone 50 mg PO DAILY Discontinued Spironolactone [Aldactone] 25 mg PO DAILY amLODIPine [Norvasc] 5 mg PO DAILY Discharge Medication List Ezetimibe [Zetia] 10 mg PO DAILY 06/20/17 [History] Losartan Potassium [Cozaar] 100 mg PO DAILY 06/20/17 [History] Metoprolol Succinate (ER) [Toprol XL] 50 mg PO DAILY 06/20/17 [History] Rosuvastatin Calcium [Crestor] 40 mg PO DAILY 06/20/17 [History] Sertraline HCl [Zoloft] 50 mg PO HS 06/20/17 [History] Insulin Regular [humuLIN R] 20 units SQ DAILY 10/14/21 [History] Albuterol Inhaler [Ventolin Hfa Inhaler] 2 puff INHALATION RT-QID PRN 02/08/25 [History] Chlorthalidone 50 mg PO DAILY 02/08/25 [History] Insulin Regular [humuLIN R] 1 - 10 units SQ HS 02/08/25 [History] Ipratropium-Albuterol Nebulize [Duoneb 0.5 mg-3 mg/3 ml Soln] 3 ml INHALATION RT-QID PRN 02/08/25 [History] Apixaban [Eliquis Starter Pack (for VTE)] 5 - 10 mg PO DIRECTED 30 Days #1 each 02/10/25 [Rx] Budesonide-Formot 160-4.5 Mcg [Symbicort 160-4.5 Mcg Inhaler] 2 puff INHALATION RT-BID #1 each 02/10/25 [Rx] amLODIPine [Norvasc] 10 mg PO DAILY #30 tab 02/10/25 [Rx] predniSONE See Taper PO DIRECTED #30 tab 02/10/25 [Rx] Follow up Appointment(s)/Referral(s): Stanley Keating DO [Doctor of Osteopathic Medicine] - 03/05/25 1:30 pm None,Stated [REFERRING] - 1-2 days Residential Home,Health [NON-STAFF] - As Needed Activity/Diet/Wound Care/Special Instructions: PCP: [facility] - Address: [facility] [address], [place] [address] - Discharge Disposition: HOME SELF-CARE
[2025-02-11 14:54] VITALS: BP 112/72; PULSE 75; RESP 16; TEMP 97.7
== END 2025-02-11 15:00 | disposition home or self-care (01) | DRG 190 ==
LOC: EC 19:26 → 6NMEDSUR 21:02 → OBSVTOIN 21:02 → 6NMEDSUR 21:29
PROVIDERS: ADMIT Internal Medicine; ATTEND Internal Medicine
DX: J44.1 Chronic obstructive pulmonary disease with (acute) exacerbation (principal); G93.6 Cerebral edema; I21.A1 Myocardial infarction type 2; J96.21 Acute and chronic respiratory failure with hypoxia; J96.22 Acute and chronic respiratory failure with hypercapnia; I82.401 Acute embolism and thrombosis of unspecified deep veins of right lower extremity; R64 Cachexia; Z68.43 Body mass index [BMI] 50.0-59.9, adult; E11.9 Type 2 diabetes mellitus without complications; I11.0 Hypertensive heart disease with heart failure; F32.A Depression, unspecified; N17.9 Acute kidney failure, unspecified; E66.01 Morbid (severe) obesity due to excess calories; I50.9 Heart failure, unspecified; Z79.4 Long term (current) use of insulin; D72.829 Elevated white blood cell count, unspecified; Z11.52 Encounter for screening for COVID-19; E78.5 Hyperlipidemia, unspecified; E87.5 Hyperkalemia; F41.9 Anxiety disorder, unspecified; I87.8 Other specified disorders of veins; I89.0 Lymphedema, not elsewhere classified; R54 Age-related physical debility; Z79.01 Long term (current) use of anticoagulants; Z79.51 Long term (current) use of inhaled steroids; Z79.899 Other long term (current) drug therapy; Z82.49 Family history of ischemic heart disease and other diseases of the circulatory system; Z86.718 Personal history of other venous thrombosis and embolism; Z85.118 Personal history of other malignant neoplasm of bronchus and lung; Z87.891 Personal history of nicotine dependence; Z98.84 Bariatric surgery status; Z99.81 Dependence on supplemental oxygen
CPT/HCPCS: 36415; 71045; 80048; 80053; 82803; 83036; 83735; 83880; 84132; 84145; 84484; 85025; 85027; 85610; 85730; 87636; 93005; 93306; 93970; 94640; 94760; 96365; 96375; 99291

== ENCOUNTER 2025-04-26 11:09 | Observation (INO) | payer MEDICARE, OTHER ==
--- NOTE | 2025-04-26 11:51 | ED ---
General Adult HPI - General Chief complaint: Weakness Stated complaint: weakness Time Seen by Provider: 04/26/25 11:13 Source: patient, EMS, RN notes reviewed Mode of arrival: EMS Limitations: no limitations - History of Present Illness Initial comments: 74-year-old female presents to the emergency department for evaluation of generalized weakness. The patient states that over the past week she has become increasingly weak. She notes that she has had increased lower extremity edema. She also notes worsening shortness of breath with activity. She does utilize 3 L nasal cannula at home. She endorses nonproductive cough. She denies any fever, chills. Denies chest pain. - Related Data Home Medications Medication Instructions Recorded Confirmed Ezetimibe [Zetia] 10 mg PO DAILY 06/20/17 04/26/25 Losartan Potassium [Cozaar] 100 mg PO DAILY 06/20/17 04/26/25 Metoprolol Succinate (ER) [Toprol 50 mg PO DAILY 06/20/17 04/26/25 XL] Rosuvastatin Calcium [Crestor] 40 mg PO DAILY 06/20/17 04/26/25 Sertraline HCl [Zoloft] 50 mg PO HS 06/20/17 04/26/25 Albuterol Inhaler [Ventolin Hfa 2 puff INHALATION RT-QID 02/08/25 04/26/25 Inhaler] Chlorthalidone 50 mg PO DAILY 02/08/25 04/26/25 Apixaban [Eliquis] 5 mg PO BID 04/26/25 04/26/25 Cetirizine HCl [Zyrtec] 10 mg PO DAILY 04/26/25 04/26/25 INSULIN LISPRO (HumaLOG) [humaLOG] 2 - 12 units SQ AC-TID 04/26/25 04/26/25 Insulin Glargine (Lantus) [Lantus 35 unit SQ HS 04/26/25 04/26/25 Vial] Spironolactone [Aldactone] 25 mg PO DAILY 04/26/25 04/26/25 Previous Rx's Medication Instructions Recorded Budesonide-Formot 160-4.5 Mcg 2 puff INHALATION RT-BID #1 each 02/10/25 [Symbicort 160-4.5 Mcg Inhaler] amLODIPine [Norvasc] 10 mg PO DAILY #30 tab 02/10/25 Allergies Allergy/AdvReac Type Severity Reaction Status Date / Time No Known Allergies Allergy Verified 04/26/25 18:27 Review of Systems ROS Statement: Those systems with pertinent positive or pertinent negative responses have been documented in the HPI. ROS Other: All systems not noted in ROS Statement are negative. Past Medical History Past Medical History: Chest Pain / Angina, Diabetes Mellitus, Hypertension Additional Past Medical History / Comment(s): HEMORRHOID, POSITIVE TEST FOR BLOOD IN STOOL., STATES DIFFICULTY WALKING DISTANCE, BACK PAIN. History of Any Multi-Drug Resistant Organisms: None Reported Past Surgical History: Bariatric Surgery, Heart Catheterization, Tonsillectomy Additional Past Surgical History / Comment(s): LAP BAND INSERTED AND REMOVED (SEPTIC), D & C'S, EXCESS SKIN ON ABDOMEN REMOVED -? PANNICULECTOMY. Past Anesthesia/Blood Transfusion Reactions: No Reported Reaction Past Psychological History: Anxiety Smoking Status: Never smoker Past Alcohol Use History: None Reported Past Drug Use History: None Reported - Past Family History Mother Family Medical History: No Reported History Father Family Medical History: Congestive Heart Failure (CHF), COPD Additional Family Medical History / Comment(s): Heart problems. General Exam Limitations: no limitations General appearance: alert, in no apparent distress Head exam: Present: atraumatic, normocephalic, normal inspection Eye exam: Present: normal appearance, PERRL, EOMI. Absent: scleral icterus, conjunctival injection, periorbital swelling ENT exam: Present: normal exam, mucous membranes moist Neck exam: Present: normal inspection. Absent: tenderness, meningismus, lymphadenopathy Respiratory exam: Present: normal lung sounds bilaterally. Absent: respiratory distress, wheezes, rales, rhonchi, stridor Cardiovascular Exam: Present: regular rate, normal rhythm, normal heart sounds. Absent: systolic murmur, diastolic murmur, rubs, gallop, clicks GI/Abdominal exam: Present: soft. Absent: distended, tenderness, guarding, rebound, rigid Extremities exam: Present: full ROM, normal capillary refill, pedal edema. Absent: tenderness, joint swelling, calf tenderness Back exam: Present: normal inspection Neurological exam: Present: alert, oriented X3 Psychiatric exam: Present: normal affect, normal mood Skin exam: Present: warm, dry. Absent: intact, normal color Course Vital Signs 04/26/25 04/26/25 04/26/25 11:13 14:00 15:10 Temperature 98.0 F Pulse Rate 76 73 72 Respiratory 18 18 Rate Blood Pressure 104/43 100/47 O2 Sat by Pulse 100 99 Oximetry 04/26/25 04/26/25 04/26/25 15:21 15:23 16:58 Temperature Pulse Rate 76 78 88 Respiratory 18 18 Rate Blood Pressure 91/50 99/59 O2 Sat by Pulse 99 98 Oximetry 04/26/25 04/26/25 04/26/25 18:34 19:47 20:42 Temperature Pulse Rate 71 75 Respiratory 18 18 18 Rate Blood Pressure 99/55 109/52 O2 Sat by Pulse 98 100 Oximetry Medical Decision Making - Medical Decision Making Was pt. sent in by a medical professional or institution (, PA, MEDICAL OFFICE ASSISTANT INSTRUCTOR, urgent care, hospital, or long term...) When possible be specific @ -No Did you speak to anyone other than the patient for history (EMS, parent, family, police, friend...)? What history was obtained from this source @ -No Did you review nursing and triage notes (agree or disagree)? Why? @ -I reviewed and agree with nursing and triage notes Were old charts reviewed (outside hosp., previous admission, EMS record, old EKG, old radiological studies, urgent care reports/EKG's, long term records)? Report findings @ -No old charts were reviewed Differential Diagnosis (chest pain, altered mental status, abdominal pain women, abdominal pain men, vaginal bleeding, weakness, fever, dyspnea, syncope, headache, dizziness, GI bleed, back pain, seizure, CVA, palpatations, mental health, musculoskeletal)? @ -Differential Weakness: Hypoglycemia, shock, sepsis, hyponatremia, anemia, infection, MS, ETOH, adverse medicine reaction, overdose, stroke, this is not meant to be an all-inclusive l ist. EKG interpreted by me (3pts min.). @ -EKG at 1206 reveals sinus rhythm with first-degree AV block, rate of 71, NJ 228, QRS 116, QT/QTc 3 43556 X-rays interpreted by me (1pt min.). @ -Chest x-ray reveals mild pulmonary venous congestion CT interpreted by me (1pt min.). @ -None done U/S interpreted by me (1pt. min.). @ -None done What testing was considered but not performed or refused? (CT, X-rays, U/S, labs)? Why? @ -None What meds were considered but not given or refused? Why? @ -None Did you discuss the management of the patient with other professionals (pro fessionals i.e. , PA, MEDICAL OFFICE ASSISTANT INSTRUCTOR, lab, RT, psych nurse, social media manager, eye care professional, teacher, juvenile correctional officer, case reviewer)? Give summary @ -Management discussed with Dr. Hendrix who is accepting of the admission with sound Was smoking cessation discussed for >3mins.? @ -No Was critical care preformed (if so, how long)? @ -No Were there social determinants of health that impacted care today? How? (Homeles sness, low income, unemployed, alcoholism, drug addiction, transportation, low edu. Level, literacy, decrease access to med. care, shelter, rehab)? @ -No Was there de-escalation of care discussed even if they declined (Discuss DNR or withdrawal of care, Hospice)? DNR status @ -No What co-morbidities impacted this encounter? (DM, HTN, Smoking, COPD, CAD, Cancer, CVA, ARF, Chemo, Hep., AIDS, mental health diagnosis, sleep apnea, morbid obesity)? @ -None Was patient admitted / discharged? Hospital course, mention meds given and route, prescriptions, significant lab abnormalities, going to OR and other pertinent info. @ -AdmittedCBC reveals WBC of 15.6, no identified source, hemoglobin 10; normal coagulation studies patient hyperkalemic with a potassium of 5.6, patient provided IV Lasix and a DuoNeb treatment to help with this. BUN and creatinine elevated at 49 and 1.19 which are baseline for the patient. Negative troponin and BNP 398 UA shows large leukocyte Estrace, 13 WBCs patient will be admitted to the hospital. Case discussed with Dr. Hendrix who is accepting of the a dmission. Case discussed with Dr. Costa Undiagnosed new problem with uncertain prognosis? @ -No Drug Therapy requiring intensive monitoring for toxicity (Heparin, Nitro, Insulin, Cardizem)? @ -No Were any procedures done? @ -No Diagnosis/symptom? @ -Generalized weakness, CHF Acute, or Chronic, or Acute on Chronic? @ -Acute Uncomplicated (without systemic symptoms) or Complicated (systemic symptoms)? @ -Uncomplicated Side effects of treatment? @ -No Exacerbation, Progression, or Severe Exacerbation? @ -No Poses a threat to life or bodily function? How? (Chest pain, USA, MS, pneumonia, PE, COPD, DKA, ARF, appy, cholecystitis, CVA, Diverticulitis, Homicidal, Suicidal, threat to staff... and all critical care pts) @ -Yes patient could fall due to weakness - Lab Data Result diagrams: 04/27/25 05:42 04/27/25 05:42 Lab Results 04/26/25 04/26/25 04/26/25 Range/Units 11:43 11:43 11:43 WBC 15.66 H (4.50-10.00) 10*3/uL RBC 3.17 L (4.10-5.20) 10*6/uL Hgb 10.0 L (12.0-15.0) g/dL Hct 30.3 L (37.2-46.3) % MCV 95.6 (80.0-97.0) fL MCH 31.5 (27.0-32.0) pg MCHC 33.0 (32.0-37.0) g/dL Plt Count 224 (140-440) 10*3/uL MPV 10.5 (9.5-12.2) fL Immature Gran % (Auto) 0.7 % Neutrophils % 82.0 % Lymphocytes % 7.2 % Monocytes % 6.4 % Eosinophils % 3.3 % Basophils % 0.4 % Immature Gran # 0.11 H (0.00-0.04) 10*3/uL Neutrophils # 12.83 H (1.80-7.70) 10*3/uL Lymphocytes # 1.13 (0.90-5.00) 10*3/uL Monocytes # 1.01 H (0.20-1.00) 10*3/uL Eosinophils # 0.51 H (0.04-0.35) 10*3/uL Basophils # 0.07 (0.00-0.10) 10*3/uL PT 11.9 (10.0-12.5) sec INR 1.1 (<1.2) APTT 27.0 (22.0-30.0) sec Sodium 137 (137-145) mmol/L Potassium 5.6 H (3.5-5.1) mmol/L Chloride 111 H (98-107) mmol/L Carbon Dioxide 17 L (22-30) mmol/L Anion Gap 9 mmol/L BUN 49 H (7-17) mg/dL Creatinine 1.19 H (0.52-1.04) mg/dL Est GFR (CKD-EPI)AfAm 52 (>60 ml/min/1.73 sqM) Est GFR (CKD-EPI)NonAf 45 (>60 ml/min/1.73 sqM) Glucose 148 H (74-99) mg/dL Calcium 10.6 H (8.4-10.2) mg/dL Magnesium 1.8 (1.6-2.3) mg/dL Total Bilirubin 0.6 (0.2-1.3) mg/dL AST 22 (14-36) U/L ALT 23 (4-34) U/L Alkaline Phosphatase 87 (38-126) U/L Troponin I (0.000-0.034) ng/mL NT-Pro-B Natriuret Pep 398 pg/mL Total Protein 5.7 L (6.3-8.2) g/dL Albumin 3.2 L (3.5-5.0) g/dL Urine Color Urine Appearance (Clear) Urine pH (5.0-8.0) Ur Specific [place] (1.001-1.035) Urine Protein (Negative) Urine Glucose (UA) (Negative) Urine Ketones (Negative) Urine Blood (Negative) Urine Nitrite (Negative) Urine Bilirubin (Negative) Urine Urobilinogen (<2.0) mg/dL Ur Leukocyte Esterase (Negative) Urine RBC (0-5) /hpf Urine WBC (0-5) /hpf Ur Squamous Epith Cells (0-4) /hpf Urine Mucus (None) /hpf 04/26/25 04/26/25 Range/Units 11:43 15:00 WBC (4.50-10.00) 10*3/uL RBC (4.10-5.20) 10*6/uL Hgb (12.0-15.0) g/dL Hct (37.2-46.3) % MCV (80.0-97.0) fL MCH (27.0-32.0) pg MCHC (32.0-37.0) g/dL Plt Count (140-440) 10*3/uL MPV (9.5-12.2) fL Immature Gran % (Auto) % Neutrophils % % Lymphocytes % % Monocytes % % Eosinophils % % Basophils % % Immature Gran # (0.00-0.04) 10*3/uL Neutrophils # (1.80-7.70) 10*3/uL Lymphocytes # (0.90-5.00) 10*3/uL Monocytes # (0.20-1.00) 10*3/uL Eosinophils # (0.04-0.35) 10*3/uL Basophils # (0.00-0.10) 10*3/uL PT (10.0-12.5) sec INR (<1.2) APTT (22.0-30.0) sec Sodium (137-145) mmol/L Potassium (3.5-5.1) mmol/L Chloride (98-107) mmol/L Carbon Dioxide (22-30) mmol/L Anion Gap mmol/L BUN (7-17) mg/dL Creatinine (0.52-1.04) mg/dL Est GFR (CKD-EPI)AfAm (>60 ml/min/1.73 sqM) Est GFR (CKD-EPI)NonAf (>60 ml/min/1.73 sqM) Glucose (74-99) mg/dL Calcium (8.4-10.2) mg/dL Magnesium (1.6-2.3) mg/dL Total Bilirubin (0.2-1.3) mg/dL AST (14-36) U/L ALT (4-34) U/L Alkaline Phosphatase (38-126) U/L Troponin I <0.012 (0.000-0.034) ng/mL NT-Pro-B Natriuret Pep pg/mL Total Protein (6.3-8.2) g/dL Albumin (3.5-5.0) g/dL Urine Color Colorless Urine Appearance Cloudy H (Clear) Urine pH 5.5 (5.0-8.0) Ur Specific [place] 1.014 (1.001-1.035) Urine Protein Negative (Negative) Urine Glucose (UA) Negative (Negative) Urine Ketones Negative (Negative) Urine Blood Negative (Negative) Urine Nitrite Negative (Negative) Urine Bilirubin Negative (Negative) Urine Urobilinogen <2.0 (<2.0) mg/dL Ur Leukocyte Esterase Large H (Negative) Urine RBC 11 H (0-5) /hpf Urine WBC 13 H (0-5) /hpf Ur Squamous Epith Cells <1 (0-4) /hpf Urine Mucus Rare H (None) /hpf Disposition Clinical Impression: Hyperkalemia, Shortness of breath Disposition: ADMITTED IP TO THIS HOSP Condition: Stable Is patient prescribed a controlled substance at d/c from ED?: No
[2025-04-26 12:22] LABS: Basophils # (A) 0.07 10*3/uL (0.00-0.10); Basophils % (A) 0.4 %; Eosinophils # (A) 0.51 10*3/uL (0.04-0.35); Eosinophils % (A) 3.3 %; HCT 30.3 % (37.2-46.3); HGB 10.0 g/dL (12.0-15.0); Lymphocytes # (A) 1.13 10*3/uL (0.90-5.00); Lymphocytes % (A) 7.2 %; MCH 31.5 pg (27.0-32.0); MCHC 33.0 g/dL (32.0-37.0); MCV 95.6 fL (80.0-97.0); Monocytes # (A) 1.01 10*3/uL (0.20-1.00); Monocytes % (A) 6.4 %; Neutrophils # (A) 12.83 10*3/uL (1.80-7.70); Neutrophils % (A) 82.0 %; Platelet Count 224 10*3/uL (140-440); RBC 3.17 10*6/uL (4.10-5.20); RDW 13.7 % (11.5-14.5); WBC 15.66 10*3/uL (4.50-10.00)
[2025-04-26 12:31] LABS: INR 1.1 (<1.2); Partial Thromboplastin Time 27.0 sec (22.0-30.0); Prothrombin Time 11.9 sec (10.0-12.5)
[2025-04-26 12:38] LABS: ALT 23 U/L (4-34); AST 22 U/L (14-36); African American GFR (CKD) 52 (>60 ml/min/1.73 sqM); Albumin 3.2 g/dL (3.5-5.0); Alkaline Phosphatase 87 U/L (38-126); Anion Gap 9 mmol/L; Blood Urea Nitrogen 49 mg/dL (7-17); Calcium 10.6 mg/dL (8.4-10.2); Carbon Dioxide 17 mmol/L (22-30); Chloride 111 mmol/L (98-107); Glucose 148 mg/dL (74-99); Magnesium 1.8 mg/dL (1.6-2.3); Non-African American GFR(CKD) 45 (>60 ml/min/1.73 sqM); Potassium 5.6 mmol/L (3.5-5.1); Sodium 137 mmol/L (137-145); Total Protein 5.7 g/dL (6.3-8.2)
[2025-04-26 12:47] LABS: NT-Pro-B-Type Natriuretic Pept 398 pg/mL
--- NOTE | 2025-04-26 13:13 | XR ---
EXAMINATION TYPE: XR chest 2V DATE OF EXAM: 04/26/2025 12:35 PM COMPARISON: Chest radiographs from 02/07/2025. CLINICAL INDICATION: Female, 74 years old with history of Weakness; [facility] TECHNIQUE: XR chest 2V Frontal and lateral views of the chest. FINDINGS: Lungs/Pleura: There is no evidence of pleural effusion, focal consolidation, or pneumothorax. Pulmonary vascularity: Pulmonary vascular congestion. Heart/mediastinum: Cardiomediastinal silhouette is enlarged. Musculoskeletal: No acute osseous pathology. IMPRESSION: Cardiomegaly and mild pulmonary vascular congestion. Correlate with BNP for congestive heart failure. [facility], , 04/26/2025 1:11 PM
[2025-04-26] MEDS: FUROSEMIDE 10 MG/ML 4 ML VIAL IV STA (14:54)
[2025-04-26] MEDS: IPRATROPIUM-ALBUTEROL 3 ML NEB INHALATION STA (15:09)
[2025-04-26 15:19] LABS: Bilirubin,Urine Negative (Negative); Blood,Urine Negative (Negative); Color,Urine Colorless; Glucose,Urine (UA) Negative (Negative); Ketones,Urine Negative (Negative); Leukocyte Esterase,Urine Large (Negative); Mucus,Urine Rare /hpf; Nitrite,Urine Negative (Negative); PH, Urine 5.5 (5.0-8.0); Protein,Urine Negative (Negative); RBC,Urine 11 /hpf (0-5); Specific Gravity,Urine 1.014 (1.001-1.035); Squamous Epithelial Cell,Urine <1 /hpf (0-4); Urobilinogen,Urine <2.0 mg/dL (<2.0); WBC,Urine 13 /hpf (0-5)
[2025-04-26] MEDS: SODIUM CHLORIDE 0.9% 500 ML 500 ML IV ONE (15:47)
[2025-04-26] MEDS: SODIUM CHLORIDE 0.9% 1,000 ML IV SCH (15:47)
[2025-04-26] MEDS ORDERED: MORPHINE SULFATE 4 MG/ML SYRINGE IV PRN (18:16)
[2025-04-26] MEDS ORDERED: HYDROmorphone 0.5 MG/0.5 ML SYRINGE IVP PRN (18:16)
[2025-04-26] MEDS ORDERED: NALOXONE 0.4 MG/ML 1 ML VIAL IV PRN (18:16)
--- NOTE | 2025-04-27 01:21 | P.HPIM ---
History of Present Illness H&P Date: 04/26/25 Chief Complaint: Worsening swelling and difficulty breathing 74 year old female with congestive heart failure and diabetes presents with worsening swelling and breathing difficulties. She reports always having trouble breathing when walking around, but it has worsened over the past week. Cathy has been sleeping in a chair due to breathing issues when lying flat. She reports some coughing with occasional phlegm production. Cathy denies chest pain, fever, chills, bleeding, diarrhea, or burning with urination. Her mobility has been significantly impacted, and she is currently unable to stand on her legs due to weakness from the swelling. Cathy has been using a walker but reports her legs have been giving way recently. she lives at home with her daughter, who provides care. She has limited mobility and uses a walker. Cathy has been trying to watch her salt intake. She denies smoking or using street drugs. Medical problems 1. Congestive heart failure 2. Diabetes (insulin-dependent) 3. History of blood clot in leg review of systems Pertinent positives as noted in HPI. All other systems were reviewed and are negative Constitutional: Reports weakness and difficulty standing Respiratory: Difficulty breathing, especially when lying flat; some coughing with occasional phlegm Cardiovascular: Denies chest pain Gastrointestinal: Denies diarrhea Genitourinary: Denies burning with urination Musculoskeletal: Reports leg weakness and difficulty walking Skin: Reports swelling in legs Neurological: Denies any history of stroke on exam Constitutional: No acute distress, conversant, pleasant Eyes: Anicteric sclerae, moist conjunctiva, Pupils equal round reactive to light ENMT: NC/AT Oropharynx clear, no erythema, or exudates Neck: Supple, no masses, or JVD No carotid bruits No thyromegaly Lungs: good breath sounds , with rales at lung bases Clear to percussion Normal respiratory effort, no accessory muscle use Cardiovascular: Heart regular in rate and rhythm, No murmurs, gallops, or rubs +2 bilateral peripheral leg edema Abdominal: Soft Nontender, no guarding, rebound or rigidity Abdomen moving with respiration Normoactive bowel sounds Extremities: No digital cyanosis No clubbing Pedal pulses intact and symmetrical Radial pulses intact and symmetrical No calf tenderness Psychiatric: Alert and oriented to person, place and time Appropriate affect Neuro Muscles Strength 4/5 in all 4 extremities Sensation to light touch grossly present throughout Cranial nerves II-XII grossly intact Past Medical History Past Medical History: Chest Pain / Angina, Diabetes Mellitus, Hypertension Additional Past Medical History / Comment(s): HEMORRHOID, POSITIVE TEST FOR BLOOD IN STOOL., STATES DIFFICULTY WALKING DISTANCE, BACK PAIN. History of Any Multi-Drug Resistant Organisms: None Reported Past Surgical History: Bariatric Surgery, Heart Catheterization, Tonsillectomy Additional Past Surgical History / Comment(s): LAP BAND INSERTED AND REMOVED (SEPTIC), D & C'S, EXCESS SKIN ON ABDOMEN REMOVED -? PANNICULECTOMY. Past Anesthesia/Blood Transfusion Reactions: No Reported Reaction Past Psychological History: Anxiety Additional Psychological History / Comment(s): Pt resides alone. She uses a cane/walker to ambulate. She can drive, however, her son does most of the driving. She is independent. Smoking Status: Never smoker Past Alcohol Use History: None Reported Additional Past Alcohol Use History / Comment(s): SMOKED 2 YEARS IN EARLY Past Drug Use History: None Reported - Past Family History Mother Family Medical History: No Reported History Father Family Medical History: Congestive Heart Failure (CHF), COPD Additional Family Medical History / Comment(s): Heart problems. Medications and Allergies Home Medications Medication Instructions Recorded Confirmed Type Ezetimibe [Zetia] 10 mg PO DAILY 06/20/17 04/26/25 History Losartan Potassium [Cozaar] 100 mg PO DAILY 06/20/17 04/26/25 History Metoprolol Succinate (ER) [Toprol 50 mg PO DAILY 06/20/17 04/26/25 History XL] Rosuvastatin Calcium [Crestor] 40 mg PO DAILY 06/20/17 04/26/25 History Sertraline HCl [Zoloft] 50 mg PO HS 06/20/17 04/26/25 History Albuterol Inhaler [Ventolin Hfa 2 puff INHALATION RT-QID 02/08/25 04/26/25 History Inhaler] Chlorthalidone 50 mg PO DAILY 02/08/25 04/26/25 History Budesonide-Formot 160-4.5 Mcg 2 puff INHALATION RT-BID #1 each 02/10/25 04/26/25 Rx [Symbicort 160-4.5 Mcg Inhaler] amLODIPine [Norvasc] 10 mg PO DAILY #30 tab 02/10/25 04/26/25 Rx Apixaban [Eliquis] 5 mg PO BID 04/26/25 04/26/25 History Cetirizine HCl [Zyrtec] 10 mg PO DAILY 04/26/25 04/26/25 History INSULIN LISPRO (HumaLOG) [humaLOG] 2 - 12 units SQ AC-TID 04/26/25 04/26/25 Hi story Insulin Glargine (Lantus) [Lantus 35 unit SQ HS 04/26/25 04/26/25 History Vial] Spironolactone [Aldactone] 25 mg PO DAILY 04/26/25 04/26/25 History Allergies Allergy/AdvReac Type Severity Reaction Status Date / Time No Known Allergies Allergy Verified 04/26/25 18:27 Physical Exam Vitals: Vital Signs Temp Pulse Pulse Resp BP BP Pulse Ox 04/26/25 21:47 98.1 F 73 20 120/80 98 04/26/25 20:42 75 18 109/52 100 04/26/25 19:47 18 04/26/25 18:34 71 18 99/55 98 04/26/25 16:58 88 18 99/59 98 04/26/25 15:23 78 18 91/50 99 04/26/25 15:21 76 04/26/25 15:10 72 04/26/25 14:00 73 18 100/47 99 04/26/25 11:13 98.0 F 76 18 104/43 100 Intake and Output 04/26/25 04/26/25 04/26/25 06:59 14:59 22:59 Output Total 900 Balance -900 Output: Urine 900 Other: # Voids 1 Weight 142.882 kg 142.882 kg Results CBC & Chem 7: 04/26/25 11:43 04/26/25 11:43 Labs: Abnormal Lab Results - Last 24 Hours (Table) 04/26/25 04/26/25 04/26/25 Range/Units 11:43 11:43 15:00 WBC 15.66 H (4.50-10.00) 10*3/uL RBC 3.17 L (4.10-5.20) 10*6/uL Hgb 10.0 L (12.0-15.0) g/dL Hct 30.3 L (37.2-46.3) % Immature Gran # 0.11 H (0.00-0.04) 10*3/uL Neutrophils # 12.83 H (1.80-7.70) 10*3/uL Monocytes # 1.01 H (0.20-1.00) 10*3/uL Eosinophils # 0.51 H (0.04-0.35) 10*3/uL Potassium 5.6 H (3.5-5.1) mmol/L Chloride 111 H (98-107) mmol/L Carbon Dioxide 17 L (22-30) mmol/L BUN 49 H (7-17) mg/dL Creatinine 1.19 H (0.52-1.04) mg/dL Glucose 148 H (74-99) mg/dL Calcium 10.6 H (8.4-10.2) mg/dL Total Protein 5.7 L (6.3-8.2) g/dL Albumin 3.2 L (3.5-5.0) g/dL Urine Appearance Cloudy H (Clear) Ur Leukocyte Esterase Large H (Negative) Urine RBC 11 H (0-5) /hpf Urine WBC 13 H (0-5) /hpf Urine Mucus Rare H (None) /hpf Thrombosis Risk Factor Assmnt - Choose All That Apply Any of the Below Risk Factors Present?: Yes Each Factor Represents 1 point: Heart failure (<1month), Obesity (BMI >25) Other Risk Factors: Yes Each Risk Factor Represents 2 Points: Age 61-74 years, Patient confined to bed Other congenital or acquired thrombophilia - If yes, enter type in comment: No Thrombosis Risk Factor Assessment Total Risk Factor Score: 6 Thrombosis Risk Factor Assessment Level: High Risk Assessment and Plan Assessment: 74 year old female with DM , CHF , hypertension , presented with difficulty breathing , i discussed the case with ED doc and I accepted the admission for acute exacerbation of CHF with anticipated length of stay > 2 midnights Cathy presents with symptoms consistent with an exacerbation of congestive heart failure, characterized by worsening leg swelling and breathing difficulties. 1. Congestive heart failure exacerbation 2. pressure ulcers on buttocks 3. mild hyperkalemia with K 5.6 4. mild anemia with Hgb 10 Plan: 1. Admit patient for further evaluation and management of congestive heart failure exacerbation 2. chest X-ray shows pulmonary vascular congestion 3. Perform echocardiogram to evaluate cardiac function 4. Lasix IVP 40 mg bid 5. Monitor fluid intake and output 6. Assess and manage wounds on buttocks 7. Physical therapy consultation for mobility assessment and recommendations 8. monitor K levels, expected to come down with IV lasix 9. Continue current anticoagulation with Eliquis 10. Educate patient on salt restriction and fluid management Trops negative EKG no acute ST changes Chronic conditions DM insulin sliding scale Parkinson disease resume home meds blood work renal fucntion showing Na 137, BUN 49 Cr 1.1 WBC 15 eleveated , afebrile , check pressure ulcers for signs of infection urine is cloudy with leuk esterase positive , but denies any urinary symptoms full code DVT PPX on eliquis
[2025-04-27] MEDS ORDERED: DEXTROSE 50% SYRINGE 50 ML IVP PRN ×2 (01:24)
[2025-04-27 05:49] LABS: Glucose,Whole Blood 163 mg/dL (70-110)
[2025-04-27] MEDS: SYMBICORT 160-4.5 MCG INHALER INHALATION SCH (06:12)
[2025-04-27] MEDS: INSULIN LISPRO (HumaLOG) 100 UNIT/ML 10 mL VL SQ SCH (06:37)
[2025-04-27] MEDS ORDERED: IPRATROPIUM-ALBUTEROL 3 ML NEB INHALATION PRN (08:17)
[2025-04-27] MEDS: APIXABAN 5 MG TAB PO SCH (08:17)
[2025-04-27] MEDS: EZETIMIBE 10 MG TAB PO SCH (08:18)
[2025-04-27] MEDS: ATORVASTATIN 80 MG TAB PO SCH (08:18)
--- NOTE | 2025-04-27 08:25 | P.PN ---
Subjective Progress Note Date: 04/27/25 74 year old female with past medical history of COPD (3 L home oxygen), hypertension, hyperlipidemia, diabetes mellitus type 2, remote history of tobacco use presented to the ED with shortness of breath and lower extremity swelling. In the ED she underwent extensive evaluation. Recent Echo from 11/2024 shows EF 55-60% with mild LV thickness. BP 104/43, HR 76, RR 18, T 98F, 100% on 3L NC. CBC, Coag panel, CMP significant for WBC 15.66, RBC 3.17, Hg 10, Hct 30.3, K 5.6, Cl 111, bicarb 17, BUN 49, Cr 1.19, glu 148, Ca 10.6, alb 3.2. Trop < 0.012 x 1. BNP 398. UA large LE with 11 RBCs and 13 WBCs. EKG sinus rhythm with first degree AV block. CXR shows pulmonary vascular congestion. She was given Lasix IV + DuoNeb and admitted for further workup and management. 04/27 Patient was seen and examined. She reports her breathing is stable. Still with considerable swelling in her legs. She is 98% on 3L NC. CBC and BMP pending at the time of this note. General: non toxic, no distress, appears at stated age, morbidly obese Derm: warm, dry Head: atraumatic, normocephalic, symmetric Eyes: EOMI, no lid lag, anicteric sclera Mouth: no lip lesion, mucus membranes moist Cardiovascular: S1 S2 reg. No murmurs. Lungs: Decreased BS BL, no accessory muscle use Ext: no gross muscle atrophy, 3+ LE edema with venous stasis skin changes and lymphedema, no contractures Neuro: no focal neuro deficits Psych: Alert, oriented, appropriate affect Based on my assessment of this patient, this patient meets a high complexity level of care. Chronic hypoxic hypercapnic respiratory failure secondary to HFpEF exacerbation, on home oxygen 3 L: Recent Echo in 01/2025 no need to repeat. BNP 398 however morbidly obese. Start Lasix 40 mg IV BID. Strict intake and outtake. Daily weights. Monitor renal function and e-lytes while on Lasix. Cardiac diet with 1.5 L fluid restriction. Hyperkalemia: Mildly elevated at K 5.6. Hold Losartan and Aldactone until repeat. COPD not in acute exacerbation: DuoNeb QID PRN SOB/wheezing. Symbicort 2 INH BID. Lymphedema: PAOLA wrap BL LE. LE elevation. RLE DVT: Eliquis 5 mg PO BID. CDK stage IIIa appears at baseline. Normocytic anemia: Hg 10. No signs of active bleeding. Trend. Transfuse if Hg < 7. Recommend routine CA screenings. Hypertension: Now hypotensive. Hold Amlodipine 10 mg PO QD, Metoprolol 50 mg PO QD, Losartan 100 mg PO QD, Aldactone 25 mg PO QD today. Restart stepwise when BP improves. Hyperlipidemia: Crestor 40 mg PO QD. Zetia 10 mg PO QD. Type II diabetes mellitus: Levemir 35 units SQ QHS. ISS + Accuchecks ACHS along with hypoglycemic precautions. CODE STATUS: FULL CODE DVT Prophylaxis: Eliquis. GI Prophylaxis: Designated medical POA if patient is not able to make medical decisions for themselves: I have reviewed the following benefits consultant notes: I have reviewed the results of the following tests: Echo from 01/2025. I have ordered the following tests: CBC, Mag and BMP in the AM. I have discussed the care of this patient with the following independent historian: PRISCILLA. I have independently interpreted the following test below: I have discussed the management of this patient with the following physician: Objective - Vital Signs Vital signs: Vital Signs Temp 98.3 F 04/27/25 07:20 Pulse 68 04/27/25 07:20 Resp 18 04/27/25 07:20 BP 92/56 04/27/25 07:20 Pulse Ox 98 04/27/25 07:20 FiO2 Intake & Output 04/26/25 04/27/25 04/27/25 18:59 06:59 18:59 Output Total 900 950 Balance -900 -950 Weight 142.882 kg 142.882 kg Output: Urine 900 950 Other: Voiding Method Diaper External Catheter # Voids 1 - Labs CBC & Chem 7: 04/26/25 11:43 04/26/25 11:43 Labs: Abnormal Lab Results - Last 24 Hours (Table) 04/26/25 04/26/25 04/26/25 Range/Units 11:43 11:43 15:00 WBC 15.66 H (4.50-10.00) 10*3/uL RBC 3.17 L (4.10-5.20) 10*6/uL Hgb 10.0 L (12.0-15.0) g/dL Hct 30.3 L (37.2-46.3) % Immature Gran # 0.11 H (0.00-0.04) 10*3/uL Neutrophils # 12.83 H (1.80-7.70) 10*3/uL Monocytes # 1.01 H (0.20-1.00) 10*3/uL Eosinophils # 0.51 H (0.04-0.35) 10*3/uL Potassium 5.6 H (3.5-5.1) mmol/L Chloride 111 H (98-107) mmol/L Carbon Dioxide 17 L (22-30) mmol/L BUN 49 H (7-17) mg/dL Creatinine 1.19 H (0.52-1.04) mg/dL Glucose 148 H (74-99) mg/dL POC Glucose (mg/dL) (70-110) mg/dL Calcium 10.6 H (8.4-10.2) mg/dL Total Protein 5.7 L (6.3-8.2) g/dL Albumin 3.2 L (3.5-5.0) g/dL Urine Appearance Cloudy H (Clear) Ur Leukocyte Esterase Large H (Negative) Urine RBC 11 H (0-5) /hpf Urine WBC 13 H (0-5) /hpf Urine Mucus Rare H (None) /hpf 04/27/25 Range/Units 05:47 WBC (4.50-10.00) 10*3/uL RBC (4.10-5.20) 10*6/uL Hgb (12.0-15.0) g/dL Hct (37.2-46.3) % Immature Gran # (0.00-0.04) 10*3/uL Neutrophils # (1.80-7.70) 10*3/uL Monocytes # (0.20-1.00) 10*3/uL Eosinophils # (0.04-0.35) 10*3/uL Potassium (3.5-5.1) mmol/L Chloride (98-107) mmol/L Carbon Dioxide (22-30) mmol/L BUN (7-17) mg/dL Creatinine (0.52-1.04) mg/dL Glucose (74-99) mg/dL POC Glucose (mg/dL) 163 H (70-110) mg/dL Calcium (8.4-10.2) mg/dL Total Protein (6.3-8.2) g/dL Albumin (3.5-5.0) g/dL Urine Appearance (Clear) Ur Leukocyte Esterase (Negative) Urine RBC (0-5) /hpf Urine WBC (0-5) /hpf Urine Mucus (None) /hpf
[2025-04-27] MEDS ORDERED: LOSARTAN 50 MG TAB PO SCH (09:00)
[2025-04-27] MEDS ORDERED: SPIRONOLACTONE 25 MG TAB PO SCH (09:00)
[2025-04-27] MEDS ORDERED: amLODIPine 10 MG TAB PO SCH (09:00)
[2025-04-27] MEDS ORDERED: METOPROLOL SUCCINATE (ER) 50 MG TAB.ER.24H PO SCH (09:00)
[2025-04-27] MEDS: CHLORTHALIDONE 25 MG TAB PO SCH (09:48)
[2025-04-27 09:58] LABS: Basophils # (A) 0.06 X 10*3/uL (0.00-0.10); Basophils % (A) 0.5 %; Eosinophils # (A) 0.66 X 10*3/uL (0.04-0.35); Eosinophils % (A) 5.1 %; HCT 31.7 % (37.2-46.3); HGB 9.8 g/dL (12.0-15.0); Immature Grans, Automated 0.50 %; Lymphocytes # (A) 1.31 X 10*3/uL (0.90-5.00); Lymphocytes % (A) 10.2 %; MCH 30.2 pg (27.0-32.0); MCHC 30.9 g/dL (32.0-37.0); MCV 97.5 FL (80.0-97.0); Monocytes # (A) 1.00 X 10*3/uL (0.20-1.00); Monocytes % (A) 7.8 %; NRBC Per 100 WBC 0 X 10*3/uL (0.00-0.01); Neutrophils # (A) 9.76 X 10*3/uL (1.80-7.70); Neutrophils % (A) 75.9 %; Platelet Count 227 X 10*3/uL (140-440); RBC 3.25 X 10*6/uL (4.10-5.20); RDW 13.7 % (11.5-14.5); WBC 12.86 X 10*3/uL (4.50-10.00)
[2025-04-27] MEDS: ZINC OXIDE PASTE (Z-GUARD) 1 APPLIC TOPICAL SCH (10:12)
[2025-04-27] MEDS: NYSTATIN 100,000 UNIT/GM POWD 15 GM TOPICAL SCH (10:12)
[2025-04-27] MEDS: FUROSEMIDE 10 MG/ML 4 ML VIAL IV SCH (10:12)
[2025-04-27 10:36] LABS: Anion Gap 10.20 mmol/L (4.00-12.00); BUN/Creat Ratio 37.67 Ratio (12.00-20.00); Blood Urea Nitrogen 45.2 mg/dL (9.0-27.0); Calcium 9.6 mg/dL (8.7-10.3); Carbon Dioxide 17.8 mmol/L (21.6-31.8); Chloride 112 mmol/L (96-109); Glucose 152 mg/dL (70-110); Potassium 5.4 mmol/L (3.5-5.5); Sodium 140 mmol/L (135-145)
[2025-04-27 12:24] LABS: Glucose,Whole Blood 201 mg/dL (70-110)
[2025-04-27 17:24] LABS: Glucose,Whole Blood 221 mg/dL (70-110)
[2025-04-27 20:26] LABS: Glucose,Whole Blood 278 mg/dL (70-110)
[2025-04-27] MEDS: INSULIN GLARGINE (LANTUS) 100 UNIT/ML SYR SQ SCH (20:38)
[2025-04-28 05:12] LABS: HCT 29.3 % (37.2-46.3); HGB 9.4 g/dL (12.0-15.0); MCH 30.6 pg (27.0-32.0); MCHC 32.1 g/dL (32.0-37.0); MCV 95.4 fL (80.0-97.0); Platelet Count 219 10*3/uL (140-440); RBC 3.07 10*6/uL (4.10-5.20); RDW 13.7 % (11.5-14.5); WBC 11.52 10*3/uL (4.50-10.00)
[2025-04-28 05:31] LABS: African American GFR (CKD) 56 (>60 ml/min/1.73 sqM); Anion Gap 7 mmol/L; Blood Urea Nitrogen 42 mg/dL (7-17); Calcium 10.0 mg/dL (8.4-10.2); Carbon Dioxide 22 mmol/L (22-30); Chloride 108 mmol/L (98-107); Glucose 154 mg/dL (74-99); Magnesium 1.4 mg/dL (1.6-2.3); Non-African American GFR(CKD) 49 (>60 ml/min/1.73 sqM); Potassium 4.4 mmol/L (3.5-5.1); Sodium 137 mmol/L (137-145)
[2025-04-28 05:46] LABS: Glucose,Whole Blood 171 mg/dL (70-110)
[2025-04-28 11:56] VITALS: BMI 54.3
[2025-04-28 12:22] LABS: Glucose,Whole Blood 230 mg/dL (70-110)
[2025-04-28] MEDS ORDERED: Magnesium Replacement Protocol 1 EACH MISC MISCELLANE PRN (14:49)
--- NOTE | 2025-04-28 14:56 | P.PN ---
Subjective Progress Note Date: 04/28/25 Hospital Course: 74 year old female with past medical history of COPD (3 L home oxygen), hypert ension, hyperlipidemia, diabetes mellitus type 2, remote history of tobacco use presented to the ED with shortness of breath and lower extremity swelling. In the ED she underwent extensive evaluation. Recent Echo from 11/2024 shows EF 55- 60% with mild LV thickness. BP 104/43, HR 76, RR 18, T 98F, 100% on 3L NC. CBC, Coag panel, CMP significant for WBC 15.66, RBC 3.17, Hg 10, Hct 30.3, K 5.6, Cl 111, bicarb 17, BUN 49, Cr 1.19, glu 148, Ca 10.6, alb 3.2. Trop < 0.012 x 1. BNP 398. UA large LE with 11 RBCs and 13 WBCs. EKG sinus rhythm with first degree AV block. CXR shows pulmonary vascular congestion. She was given Lasix IV + DuoNeb and admitted for further workup and management. 04/28: Seen examined at bedside, no acute events overnight, patient states that her breathing is normal, she is on home oxygen 3 L, lower extremity swelling is slowly coming down, she has not tried to move around yet, was encouraged to do so, PT OT consult in place. Morning blood work showed improving leukocytosis 11.52, stable hemoglobin 9.4, creatinine stable 1.12, sodium and potassium normal. Magnesium 1.4. Will transition to oral Lasix starting tomorrow Pertinent positives and negatives as discussed above, a complete review of systems was performed and all other systems are negative. Vitals Signs Reviewed. General: [nontoxic], [no distress], [appears at stated age], morbidly obese Derm: [warm], [dry] Head: [atraumatic], [normocephalic], [symmetric] Eyes: [EOMI], [no lid lag], [anicteric sclera] Mouth: [no lip lesion], [mucus membranes moist] Cardiovascular: [S1S2 reg], [no murmur] Lungs: [CTA bilateral], decreased bibasilar lung sounds [no rhonchi, no rales] , [no accessory muscle use] Abdominal: [soft], [ nontender to palpation], [no guarding], [no appreciable organomegaly] Ext: [no gross muscle atrophy], [2+ edema [no contractures] Neuro: [ CN II-XI grossly intact], [no focal neuro deficits] Psych: [Alert], [oriented], [appropriate affect] Assessment and Plan: Chronic hypoxic hypercapnic respiratory failure secondary to HFpEF exacerbation, on home 3 L O2 -Recent Echo in 01/2025 no need to repeat. BNP 398 however morbidly obese. - Transition to Lasix 40 twice daily oral starting tomorrow -strict intake and outtake. Daily weights. Monitor renal function and e-lytes wh ile on Lasix. Cardiac diet with 1.5 L fluid restriction. -Holding. Losartan and Aldactone recent hyperkalemia and soft blood pressures while on IV diuretics, monitor BMP daily COPD not in acute exacerbation: DuoNeb QID PRN SOB/wheezing. Symbicort 2 INH BID. Lymphedema: PAOLA wrap BL LE. LE elevation. RLE DVT: Eliquis 5 mg PO BID. CDK stage IIIa appears at baseline. Normocytic anemia: Hg 10. No signs of active bleeding. Trend. Transfuse if Hg < 7. Recommend routine CA screenings. Hypertension: Now hypotensive. Hold Amlodipine 10 mg PO QD, Metoprolol 50 mg PO QD, Losartan 100 mg PO QD, Aldactone 25 mg PO QD today. Restart stepwise when BP improves. Hyperlipidemia: Crestor 40 mg PO QD. Zetia 10 mg PO QD. Type II diabetes mellitus: Levemir 35 units SQ QHS. ISS + Accuchecks ACHS along with hypoglycemic precautions. DVT ppx: Eliquis Code status: Full cde Anticipated discharge place: [facility] Anticipated discharge time: 24 hours Objective - Vital Signs Vital signs: Vital Signs Temp 97.8 F 04/28/25 14:20 Pulse 94 04/28/25 14:20 Resp 20 04/28/25 14:20 BP 103/62 04/28/25 14:20 Pulse Ox 98 04/28/25 14:20 FiO2 Intake & Output 04/27/25 04/28/25 04/28/25 18:59 06:59 18:59 Intake Total 118 0 Output Total 700 1800 1000 Balance -360 -1800 1000 Weight 143 kg 139 kg 139 kg Intake: Oral 118 0 Output: Urine 700 1800 1000 Other: Voiding Method Diaper External Catheter - Labs CBC & Chem 7: 04/28/25 04:19 04/28/25 04:19 Labs: Abnormal Lab Results - Last 24 Hours (Table) 04/27/25 04/27/25 04/27/25 Range/Units 05:42 17:21 20:25 WBC (4.50-10.00) 10*3/uL RBC (4.10-5.20) 10*6/uL Hgb (12.0-15.0) g/dL Hct (37.2-46.3) % Chloride (98-107) mmol/L BUN (7-17) mg/dL Creatinine (0.52-1.04) mg/dL Glucose (74-99) mg/dL POC Glucose (mg/dL) 221 H 278 H (70-110) mg/dL Hemoglobin A1c 9.5 H (<=6.0) % Magnesium (1.6-2.3) mg/dL 04/28/25 04/28/25 04/28/25 Range/Units 04:19 04:19 05:43 WBC 11.52 H (4.50-10.00) 10*3/uL RBC 3.07 L (4.10-5.20) 10*6/uL Hgb 9.4 L (12.0-15.0) g/dL Hct 29.3 L (37.2-46.3) % Chloride 108 H (98-107) mmol/L BUN 42 H (7-17) mg/dL Creatinine 1.12 H (0.52-1.04) mg/dL Glucose 154 H (74-99) mg/dL POC Glucose (mg/dL) 171 H (70-110) mg/dL Hemoglobin A1c (<=6.0) % Magnesium 1.4 L (1.6-2.3) mg/dL 04/28/25 Range/Units 12:16 WBC (4.50-10.00) 10*3/uL RBC (4.10-5.20) 10*6/uL Hgb (12.0-15.0) g/dL Hct (37.2-46.3) % Chloride (98-107) mmol/L BUN (7-17) mg/dL Creatinine (0.52-1.04) mg/dL Glucose (74-99) mg/dL POC Glucose (mg/dL) 230 H (70-110) mg/dL Hemoglobin A1c (<=6.0) % Magnesium (1.6-2.3) mg/dL Microbiology - Last 24 Hours (Table) 04/26/25 15:00 Urine Culture - Preliminary Urine,Voided
[2025-04-28] MEDS: MAGNESIUM SULFATE-D5W PMX 1 GM in DEXTROSE/WATER 1 100ML.BAG IVPB SCH (15:33)
[2025-04-28] MEDS: ACETAMINOPHEN TAB 325 MG TAB PO PRN (15:38)
[2025-04-28 17:43] LABS: Glucose,Whole Blood 349 mg/dL (70-110)
[2025-04-28 20:30] LABS: Glucose,Whole Blood 338 mg/dL (70-110)
[2025-04-29 06:03] LABS: Glucose,Whole Blood 282 mg/dL (70-110)
[2025-04-29 07:29] VITALS: BP 118/65; PULSE 79; RESP 16; TEMP 97.8
[2025-04-29 07:47] LABS: Magnesium 1.6 mg/dL (1.5-2.4)
[2025-04-29 07:48] LABS: Basophils # (A) 0.06 X 10*3/uL (0.00-0.10); Basophils % (A) 0.5 %; Eosinophils # (A) 0.52 X 10*3/uL (0.04-0.35); Eosinophils % (A) 4.2 %; HCT 29.5 % (37.2-46.3); HGB 9.7 g/dL (12.0-15.0); Immature Grans, Automated 0.70 %; Lymphocytes # (A) 1.45 X 10*3/uL (0.90-5.00); Lymphocytes % (A) 11.8 %; MCH 31.0 pg (27.0-32.0); MCHC 32.9 g/dL (32.0-37.0); MCV 94.2 FL (80.0-97.0); Monocytes # (A) 1.13 X 10*3/uL (0.20-1.00); Monocytes % (A) 9.2 %; NRBC Per 100 WBC 0 X 10*3/uL (0.00-0.01); Neutrophils # (A) 9.05 X 10*3/uL (1.80-7.70); Neutrophils % (A) 73.6 %; Platelet Count 228 X 10*3/uL (140-440); RBC 3.13 X 10*6/uL (4.10-5.20); RDW 13.6 % (11.5-14.5); WBC 12.30 X 10*3/uL (4.50-10.00)
[2025-04-29 07:57] LABS: Anion Gap 3.30 mmol/L (4.00-12.00); BUN/Creat Ratio 27.14 Ratio (12.00-20.00); Blood Urea Nitrogen 38.0 mg/dL (9.0-27.0); Calcium 9.1 mg/dL (8.7-10.3); Carbon Dioxide 30.7 mmol/L (21.6-31.8); Chloride 104 mmol/L (96-109); Glucose 259 mg/dL (70-110); Potassium 4.5 mmol/L (3.5-5.5); Sodium 138 mmol/L (135-145)
[2025-04-29] MEDS: FUROSEMIDE 40 MG TAB PO SCH (08:42)
[2025-04-29 12:06] LABS: Glucose,Whole Blood 336 mg/dL (70-110)
--- NOTE | 2025-04-29 12:37 | P.DS ---
Providers Date of admission: 04/26/25 18:16 Attending physician: Sarah Hendrix MD [facility]: Discharge Diagnosis: Chronic hypoxic hypercapnic respiratory failure secondary to HFpEF exacerbation, on home 2 L O2 COPD not in acute exacerbation Lymphedema History of RLE DVT on Eliquis CKD stage IIIa at baseline Normocytic anemia Hypertension Hyperlipidemia Type 2 diabetes mellitus Hospital Course: 74 year old female with past medical history of COPD (3 L home oxygen), hypertension, hyperlipidemia, diabetes mellitus type 2, remote history of tobacco use presented to the ED with shortness of breath and lower extremity swelling. In the ED she underwent extensive evaluation. Recent Echo from 11/2024 shows EF 55-60% with mild LV thickness. BP 104/43, HR 76, RR 18, T 98F, 100% on 3L NC. CBC, Coag panel, CMP significant for WBC 15.66, RBC 3.17, Hg 10, Hct 30.3, K 5.6, Cl 111, bicarb 17, BUN 49, Cr 1.19, glu 148, Ca 10.6, alb 3.2. Trop < 0.012 x 1. BNP 398. UA large LE with 11 RBCs and 13 WBCs. EKG sinus rhythm with first degree AV block. CXR shows pulmonary vascular congestion. She was given Lasix IV + DuoNeb and admitted for further workup and management. Patient was successfully diuresed with IV Lasix and transition to oral Lasix 40 twice daily that she will be discharged on, to be continued for the next 3 days and then 40 oral daily. Per case management, patient is to be discharged to a residential home with hospice that was set up earlier. Patient's vitals are stable, she is on home oxygen level and satting well, she denies any shortness of breath, chest pain, noted significant improvement in lower extremity swelling. Of note, her losartan was cut down to 25 mg p.o. daily, amlodipine was discontinued, Toprol-XL Down to 25 mg p.o. daily due to low normal blood pressure readings, follow-up with primary care physician, check blood pressure regularly. Patient seen and examined at bedside. Vital signs reviewed and stable. General: [nontoxic], [no distress], [appears at stated age], morbidly obese Derm: [warm], [dry] Head: [atraumatic], [normocephalic], [symmetric] Eyes: [EOMI], [no lid lag], [anicteric sclera] Mouth: [no lip lesion], [mucus membranes moist] Cardiovascular: [S1S2 reg], [no murmur] Lungs: [CTA bilateral], decreased bibasilar lung sounds [no rhonchi, no rales] , [no accessory muscle use] Abdominal: [soft], [ nontender to palpation], [no guarding], [no appreciable organomegaly] Ext: [no gross muscle atrophy], [1+ edema [, lymphedema changes no contractures] Neuro: [ CN II-XI grossly intact], [no focal neuro deficits] Psych: [Alert], [oriented], [appropriate affect] A total of 40 minutes of time were spent preparing this complex discharge summary. Patient was discharged on 04/29/2025. Patient Condition at Discharge: Stable Plan - Discharge Summary Discharge Rx Participant: No New Discharge Prescriptions: New Losartan [Cozaar] 25 mg PO DAILY #30 tab Furosemide [Lasix] 40 mg PO BID@0900,1600 #6 tab Furosemide [Lasix] 40 mg PO DAILY #30 tablet Continue Ezetimibe [Zetia] 10 mg PO DAILY Rosuvastatin Calcium [Crestor] 40 mg PO DAILY Sertraline HCl [Zoloft] 50 mg PO HS Albuterol Inhaler [Ventolin Hfa Inhaler] 2 puff INHALATION RT-QID Budesonide-Formot 160-4.5 Mcg [Symbicort 160-4.5 Mcg Inhaler] 2 puff INHALATION RT-BID #1 each Apixaban [Eliquis] 5 mg PO BID INSULIN LISPRO (HumaLOG) [humaLOG] 2 - 12 units SQ AC-TID Chlorthalidone 50 mg PO DAILY Spironolactone [Aldactone] 25 mg PO DAILY Insulin Glargine (Lantus) [Lantus Vial] 35 unit SQ HS Cetirizine HCl [Zyrtec] 10 mg PO DAILY Changed Metoprolol Succinate (ER) [Toprol XL] 25 mg PO DAILY #30 tab Discontinued Losartan Potassium [Cozaar] 100 mg PO DAILY amLODIPine [Norvasc] 10 mg PO DAILY #30 tab Discharge Medication List Ezetimibe [Zetia] 10 mg PO DAILY 06/20/17 [History] Rosuvastatin Calcium [Crestor] 40 mg PO DAILY 06/20/17 [History] Sertraline HCl [Zoloft] 50 mg PO HS 06/20/17 [History] Albuterol Inhaler [Ventolin Hfa Inhaler] 2 puff INHALATION RT-QID 02/08/25 [History] Chlorthalidone 50 mg PO DAILY 02/08/25 [History] Budesonide-Formot 160-4.5 Mcg [Symbicort 160-4.5 Mcg Inhaler] 2 puff INHALATION RT-BID #1 each 02/10/25 [Rx] Apixaban [Eliquis] 5 mg PO BID 04/26/25 [History] Cetirizine HCl [Zyrtec] 10 mg PO DAILY 04/26/25 [History] INSULIN LISPRO (HumaLOG) [humaLOG] 2 - 12 units SQ AC-TID 04/26/25 [History] Insulin Glargine (Lantus) [Lantus Vial] 35 unit SQ HS 04/26/25 [History] Spironolactone [Aldactone] 25 mg PO DAILY 04/26/25 [History] Furosemide [Lasix] 40 mg PO BID@0900,1600 #6 tab 04/29/25 [Rx] Furosemide [Lasix] 40 mg PO DAILY #30 tablet 04/29/25 [Rx] Losartan [Cozaar] 25 mg PO DAILY #30 tab 04/29/25 [Rx] Metoprolol Succinate (ER) [Toprol XL] 25 mg PO DAILY #30 tab 04/29/25 [Rx] Follow up Appointment(s)/Referral(s): Residential Home,Health [NON-STAFF] - As Needed (RESIDENTIAL HOSPICE MEDICAL EQUIPMENT BEING DELIVERED ON 04/28/25 AT 2:30PM) Murphy Galvan MD [Primary Care Provider] - 1-2 days Activity/Diet/Wound Care/Special Instructions: Please, follow up with PCP, monitor your BP daily, keep log of the readings. Note your medications changes Discharge Disposition: HOME WITH HOME HEALTH SERVICES
[2025-04-29] MEDS: INSULIN LISPRO (HumaLOG) 100 UNIT/ML 10 mL VL SQ SCH (13:04)
== END 2025-04-29 14:30 | disposition home health service (06) ==
LOC: EC 11:09 → 6NMEDSUR 18:16
PROVIDERS: ADMIT Internal Medicine; ATTEND Internal Medicine
DX: I13.0 Hypertensive heart and chronic kidney disease with heart failure and stage 1 through stage 4 chronic kidney disease, or unspecified chronic kidney disease (principal); I50.33 Acute on chronic diastolic (congestive) heart failure; N18.31 Chronic kidney disease, stage 3a; J96.11 Chronic respiratory failure with hypoxia; J96.12 Chronic respiratory failure with hypercapnia; I95.9 Hypotension, unspecified; E11.22 Type 2 diabetes mellitus with diabetic chronic kidney disease; E87.5 Hyperkalemia; D63.1 Anemia in chronic kidney disease; I44.0 Atrioventricular block, first degree; L89.309 Pressure ulcer of unspecified buttock, unspecified stage; J44.9 Chronic obstructive pulmonary disease, unspecified; D72.829 Elevated white blood cell count, unspecified; E78.5 Hyperlipidemia, unspecified; E66.01 Morbid (severe) obesity due to excess calories; Z68.43 Body mass index [BMI] 50.0-59.9, adult; I89.0 Lymphedema, not elsewhere classified; Z79.01 Long term (current) use of anticoagulants; Z79.4 Long term (current) use of insulin; Z79.51 Long term (current) use of inhaled steroids; Z79.899 Other long term (current) drug therapy; Z86.718 Personal history of other venous thrombosis and embolism; Z99.81 Dependence on supplemental oxygen; Z87.891 Personal history of nicotine dependence
CPT/HCPCS: 96376 ×2; 96365; 96361; 96375; 99285; 36415; 94640 ×5; 94760 ×2; 93005; 83880; 80053; 80048 ×3; 83735 ×3; 84484; 85025 ×3; 85027; 85610; 85730; 81001; 87086; 83036; 71046; G0378 ×4; J3475; J1938 ×3